=== PATIENT | female | born 1955 | race Caucasian/White ===

== ENCOUNTER 2022-10-15 14:03 | Emergency (ER) | payer MEDICARE, SELFPAY ==
[2022-10-15] VITALS (17 sets, daily range): BP systolic 127–180; BP diastolic 69–90; PULSE 59–78; RESP 12–27; TEMP 36.7; O2SAT 95–100; BMI 36.7
--- NOTE | 2022-10-15 14:17 | ECG_ITS ---
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
--- NOTE | 2022-10-15 14:17 | XR_ITS ---
The [address] [address] Patient Name: RUBI SOLARES MRN: [id number] date: 1955 Sex: F Assigned Patient Location: ER Current Patient Location: ER Accession/Order Number: [id number] Exam Date: 10/15/2022 14:40 Report Date: 10/15/2022 15:16 At the request of: VIOLET BASSETT Procedure: XR chest 1V EXAMINATION: XR chest 1V HISTORY: chest pain, shortness of breath COMPARISON: No relevant comparison available. TECHNIQUE: AP portable FINDINGS: LUNGS: No significant pulmonary parenchymal abnormalities. VASCULATURE: No increased pulmonary vasculature. PLEURA: No pneumothorax, effusion, or pleural thickening. CARDIAC: No cardiomegaly or cardiac silhouette abnormality. MEDIASTINUM: No visible mass or adenopathy. Left pacemaker BONES: Mild degenerative disc disease and spondylosis without visible acute abnormalities. OTHER: Negative. IMPRESSION: No acute cardiopulmonary process Electronically authenticated by: CHRISTINA DIETRICH Date: 10/15/2022 15:16
--- NOTE | 2022-10-15 14:24 | ED_ITS ---
HPI - Chest Pain General Chief Complaint: Chest Pain Stated Complaint: CHEST PAIN Time Seen by Provider: 10/15/22 14:16 Source: patient Mode of arrival: ambulance Limitations: no limitations Related Data Home Medications Medication Instructions Recorded Confirmed carvedilol 12.5 mg tablet 12.5 mg PO Q12H 10/15/22 10/15/22 ergocalciferol (vitamin D2) 1,250 50,000 unit PO .Tuesday10/15/22 10/15/22 mcg (50,000 unit) capsule losartan 100 mg tablet 100 mg PO QDAY 10/15/22 10/15/22 rivaroxaban 20 mg tablet (Xarelto) 20 mg PO Q24H 10/15/22 10/15/22 tramadol 50 mg tablet 50 mg PO Q12H PRN pain 10/15/22 10/15/22 vibegron 75 mg tablet (Gemtesa) 75 mg PO QDAY 10/15/22 10/15/22 Allergies Allergy/AdvReac Type Severity Reaction Status Date / Time acetaminophen [From Percocet] AdvReac Intermediate Verified 10/15/22 14:08 oxycodone [From Percocet] AdvReac Intermediate Verified 10/15/22 14:08 PFSH PFSH Social History Smoking status: Former smoker Exam Constitutional Vital Signs - 24 hr 10/15/22 14:05 10/15/22 14:09 10/15/22 14:10 Temperature 98.1 F Pulse Rate 74 71 Pulse Rate [Monitor] 78 Respiratory Rate 16 19 17 Blood Pressure Blood Pressure [Right Arm] 180/90 H Pulse Oximetry 98 98 98 Oxygen Delivery Method Room Air 10/15/22 14:20 10/15/22 14:30 10/15/22 14:33 Temperature Pulse Rate 72 70 73 Pulse Rate [Monitor] Respiratory Rate 13 27 H 14 Blood Pressure 172/81 H Blood Pressure [Right Arm] Pulse Oximetry 97 97 95 Oxygen Delivery Method 10/15/22 14:33 10/15/22 15:01 10/15/22 15:31 Temperature Pulse Rate 73 72 75 Pulse Rate [Monitor] Respiratory Rate 22 15 16 Blood Pressure 139/69 H 149/72 H Blood Pressure [Right Arm] Pulse Oximetry 97 96 Oxygen Delivery Method 10/15/22 15:54 10/15/22 16:01 10/15/22 16:23 Temperature Pulse Rate 73 59 L Pulse Rate [Monitor] Respiratory Rate 15 14 Blood Pressure 127/71 H 133/78 H 133/78 H Blood Pressure [Right Arm] Pulse Oximetry 98 96 Oxygen Delivery Method 10/15/22 16:01 10/15/22 16:31 Temperature Pulse Rate 74 66 Pulse Rate [Monitor] Respiratory Rate 14 16 Blood Pressure 133/78 H 147/87 H Blood Pressure [Right Arm] Pulse Oximetry 97 98 Oxygen Delivery Method Course Vital Signs Vital signs: Vital Signs Temperature 98.1 F 10/15/22 14:05 Pulse Rate 78 10/15/22 14:05 Respiratory Rate 16 10/15/22 14:05 Blood Pressure 180/90 H 10/15/22 14:05 Pulse Oximetry 98 10/15/22 14:05 Oxygen Delivery Method Room Air 10/15/22 14:05 Temperature 98.1 F 10/15/22 14:05 Pulse Rate 66 10/15/22 16:31 Respiratory Rate 16 10/15/22 16:31 Blood Pressure 147/87 H 10/15/22 16:31 Pulse Oximetry 98 10/15/22 16:31 Oxygen Delivery Method Room Air 10/15/22 14:05 MDM - Chest Pain MDM Narrative Medical decision making narrative: Patient was placed on hospital monitor and EKG obtained. Blood drawn and sent for evaluation.chest x-ray obtained. The patient was given aspirin, sublingual nitroglycerin, IV Zofran and IV morphine. Her pain subsequently returned and so she was given additional IV morphine. Workup is notable for an unremarkable chest x-ray, paced EKG, normal CBC, normal metabolic profile, negative troponin and negative d-dimer. BNP is elevated at 3750. the patient was given IV Lasix Like to admit this patient for further evaluation of her chest pain. I spoke with Dr Masters and he would prefer that the patient be sent to [facility] since we will not have in patient cardio coverage over the weekend. I spoke with Dr Albrecht - hospitalist at [facility] - and he accepted the patient's transfer to their facility for admission. Patient agreeable to transfer to their facility Lab Data Attestation: I reviewed the patient's lab results. Labs: Lab Results 10/15/22 Range/Units 14:05 WBC 6.1 (4.0-11.0) 10^3/uL RBC 4.48 (4.20-5.40) 10^6/uL Hgb 12.8 (12.0-16.0) g/dL Hct 40.5 (36.0-48.0) % MCV 90.4 (81.0-99.0) fL MCH 28.6 (26.7-34.0) pg MCHC 31.6 (29.9-35.2) g/dL RDW 14.0 (11.0-15.0) % Plt Count 208 (150-450) 10^3/uL MPV 10.6 (9.5-13.5) fL Neut % (Auto) 70.7 (43.0-75.0) % Lymph % (Auto) 20.5 (20.5-60.0) % Johnson % (Auto) 7.3 (1.7-12.0) % Eos % (Auto) 1.0 (0.9-7.0) % Baso % (Auto) 0.3 (0.2-2.0) % Neut # (Auto) 4.3 (1.4-6.5) 10^3/uL Lymph # (Auto) 1.2 (1.2-3.8) 10^3/uL Johnson # (Auto) 0.4 (0.3-0.8) 10^3/uL Eos # (Auto) 0.1 (0.0-0.7) 10^3/uL Baso # (Auto) 0.0 (0.0-0.1) 10^3/uL Abs Immat Gran (auto) 0.01 (0.00-0.03) 10^3/uL Imm/Tot Granulo (auto) 0.2 (0.0-0.5) % D-Dimer 0.28 (<=0.59) mg/L FEU Sodium 142 (136-145) mmol/L Potassium 4.1 (3.5-5.1) mmol/L Chloride 111 H (98-107) mmol/L Carbon Dioxide 28.3 (21.0-32.0) mmol/L Anion Gap 6.8 BUN 29.0 H (7.0-18.0) mg/dL Creatinine 0.91 (0.55-1.02) mg/dL Est GFR ( Amer) >60 (>=60) Est GFR (Non-Af Amer) >60 (>=60) BUN/Creatinine Ratio 31.9 Glucose 111 H (74-106) mg/dL Calcium 9.5 (8.5-10.1) mg/dL Troponin I High Sens 7.8 (4.0-51.3) pg/mL NT-Pro-B Natriuret Pep 3750.0 H* (<=900.0) pg/mL Imaging Data Chest x-ray: Radiologist's impression: Patient Name: RUBI SOLARES MRN: [facility]:[id number] date: 1955 Sex: F Assigned Patient Location: ER Current Patient Location: ER Accession/Order Number: [id number] Exam Date: 10/15/2022 14:40 Report Date: 10/15/2022 15:16 At the request of: VIOLET BASSETT Procedure: XR chest 1V EXAMINATION: XR chest 1V HISTORY: chest pain, shortness of breath COMPARISON: No relevant comparison available. TECHNIQUE: AP portable FINDINGS: LUNGS: No significant pulmonary parenchymal abnormalities. VASCULATURE: No increased pulmonary vasculature. PLEURA: No pneumothorax, effusion, or pleural thickening. CARDIAC: No cardiomegaly or cardiac silhouette abnormality. MEDIASTINUM: No visible mass or adenopathy. Left pacemaker BONES: Mild degenerative disc disease and spondylosis without visible acute abnormalities. OTHER: Negative. IMPRESSION: No acute cardiopulmonary process Electronically authenticated by: CHRISTINA DIETRICH Date: 10/15/2022 15:16 ECG Data Interpretation: EKG interpretation: Emergency Department physician interpretation. electronic pacing at 73bpm. Heart Score History: Moderatly Suspicious ECG: NS Repolarization Age: >65 years Risk Factors: >3 Risk Factors/ HX of CAD:2 Troponin: <Normal Limit Total Heart Score Recommendations & Risks:: 6 Discharge Plan Discharge Chief Complaint: Chest Pain Clinical Impression: Chest pain Patient Disposition: [facility] Time of Disposition Decision: 16:53 Discharge Location: [facility] Prescriptions / Home Meds: No Action carvedilol 12.5 mg tablet 12.5 mg PO Q12H ergocalciferol (vitamin D2) 1,250 mcg (50,000 unit) capsule 50,000 unit PO .TUESDAY losartan 100 mg tablet 100 mg PO QDAY Xarelto 20 mg tablet 20 mg PO Q24H tramadol 50 mg tablet 50 mg PO Q12H PRN (Reason: pain) Gemtesa 75 mg tablet 75 mg PO QDAY Stand Alone Forms: Portal Instructions Referrals: OREN KENDRICK [Primary Care Provider] - 1 week
[2022-10-15] MEDS: ONDANSETRON PF 4 MG/2 ML VIAL IV (14:27)
[2022-10-15] MEDS: NITROGLYCERIN 0.4 MG TAB.SUBL SL (14:27)
[2022-10-15] MEDS: MORPHINE SULFATE 4 MG/ML VIAL IM (14:27)
[2022-10-15] MEDS: ASPIRIN 81 MG TAB.CHEW 162 MG PO (14:27)
[2022-10-15 15:03] LABS: Basophils Percent Auto 0.3 % (0.2-2.0); Eosinophils Absolute Auto 0.1 10^3/uL (0.0-0.7); Hematocrit 40.5 % (36.0-48.0); Hemoglobin 12.8 g/dL (12.0-16.0); Immature Granulocytes Abs Auto 0.01 10^3/uL (0.00-0.03); Immature Granulocytes Pct Auto 0.2 % (0.0-0.5); Lymphocytes Absolute Auto 1.2 10^3/uL (1.2-3.8); Lymphocytes Percent Auto 20.5 % (20.5-60.0); Mean Corpuscular HGB Conc 31.6 g/dL (29.9-35.2); Mean Corpuscular Hemoglobin 28.6 pg (26.7-34.0); Mean Corpuscular Volume 90.4 fL (81.0-99.0); Mean Platelet Volume 10.6 fL (9.5-13.5); Monocytes Absolute Auto 0.4 10^3/uL (0.3-0.8); Monocytes Percent Auto 7.3 % (1.7-12.0); Neutrophils Absolute Auto 4.3 10^3/uL (1.4-6.5); Neutrophils Percent Auto 70.7 % (43.0-75.0); Platelet Count 208 10^3/uL (150-450); Red Blood Count 4.48 10^6/uL (4.20-5.40); White Blood Count 6.1 10^3/uL (4.0-11.0)
[2022-10-15 15:18] LABS: D Dimer 0.28 mg/L FEU (<=0.59)
[2022-10-15 15:24] LABS: Anion Gap 6.8; BUN Creatinine Ratio 31.9; Calcium 9.5 mg/dL (8.5-10.1); Carbon Dioxide 28.3 mmol/L (21.0-32.0); Chloride 111 mmol/L (98-107); Estimated GFR (African America >60 (>=60); Estimated GFR (Non-African Ame >60 (>=60); Glucose 111 mg/dL (74-106); Potassium 4.1 mmol/L (3.5-5.1); Sodium 142 mmol/L (136-145); Troponin I High Sensitivity 7.8 pg/mL (4.0-51.3)
[2022-10-15] MEDS: MORPHINE SULFATE 2 MG/ML SYRINGE IV (16:18)
[2022-10-15] MEDS: FUROSEMIDE 40 MG/4 ML VIAL IVP (16:23)
[2022-10-15 17:26] LABS: Troponin I High Sensitivity 7.9 pg/mL (4.0-51.3)
== END 2022-10-15 18:40 | disposition short-term general hospital (02) ==
PROVIDERS: Emergency Provider Emergency Medicine; PCP Internal Medicine
DX: R07.9 Chest pain, unspecified (principal); Z79.899 Other long term (current) drug therapy; Z79.01 Long term (current) use of anticoagulants; I25.10 Atherosclerotic heart disease of native coronary artery without angina pectoris; Z95.0 Presence of cardiac pacemaker; R79.89 Other specified abnormal findings of blood chemistry; R06.02 Shortness of breath
CPT/HCPCS: 36415; 71045; 80048; 83880; 84484; 85025; 85378; 93005; 96372; 96374; 96375; 99285

== ENCOUNTER 2023-01-04 11:53 | Outpatient (OUT) | payer MEDICARE, SELFPAY ==
[2023-01-04 13:28] LABS: Bilirubin Urine NEGATIVE (NEGATIVE); Blood Urine NEGATIVE (NEGATIVE); Clarity Urine SLIGHTLY CLOUDY (CLEAR); Color Urine LT. YELLOW (YELLOW); Glucose Urine UA NEGATIVE (NEGATIVE); Ketones Urine NEGATIVE (NEGATIVE); Leukocyte Esterase Urine MODERATE (NEGATIVE); Nitrite Urine NEGATIVE (NEGATIVE); Protein Urine 30 mg/dL (NEG/TRACE); Specific Gravity Urine 1.025 (1.005-1.025); Urobilinogen Urine 0.2 EU/dL (0.2-1.0)
[2023-01-04 13:29] LABS: Bacteria Urine TRACE #/HPF (NONE SEEN); Cast Seen? NONE SEEN #/LPF (NONE SEEN); Crystals Seen? None Seen #/HPF (None Seen); Mucus Urine NONE SEEN (NONE SEEN); RBC Urine NONE SEEN #/HPF (0-2); Squamous Epithelial Cell Urine RARE #/LPF (NONE/RARE); Urine Culture Indicated ALREADY ORDERED
== END 2023-01-04 11:54 | disposition home or self-care (01) ==
LOC: LAB 11:55
PROVIDERS: PCP Internal Medicine
DX: R30.0 Dysuria (principal)
CPT/HCPCS: 81001; 87086; 87150; 87186

== ENCOUNTER 2023-01-28 12:25 | Emergency (ER) | payer OTHER, MEDICARE, SELFPAY ==
[2023-01-28 12:30] VITALS: BP 153/82; PULSE 76; RESP 18; TEMP 36.8; O2SAT 97; BMI 30.9
--- NOTE | 2023-01-28 12:54 | XR_ITS ---
The [address] [address] Patient Name: RUBI SOLARES MRN: [id number] date: 1955 Sex: F Assigned Patient Location: ED.MAIN Current Patient Location: Accession/Order Number: [id number] Exam Date: 01/28/2023 13:40 Report Date: 01/28/2023 15:50 At the request of: ZAIDA SALGUERO Procedure: XR finger RT min 2V EXAM: XR finger RT min 2V, 02/05/2023. TECHNIQUE: Frontal, oblique and lateral views were obtained. HISTORY: Laceration 5th digit. COMPARISON: None. FINDINGS/IMPRESSION: 1. No acute fracture or dislocation. 2. There are 2 subcentimeter radiopaque foreign bodies within the volar soft tissues near the middle phalanx seen best on the lateral view. These measure between 1 and 2 mm. 3. 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 Electronically authenticated by: [employer] Date: 01/28/2023 15:50 XR/XR finger RT min 2V IMPRESSION: 1. No acute fracture or dislocation. 2. There are 2 subcentimeter radiopaque foreign body within the volar soft tissues near the middle phalanx seen best on the lateral view. These measure between 1 and 2 mm. 3. Multifocal arthritis involving articulations of the hand and wrist, seen for example at the second and third MCP and less so involving several interphalangeal joints. Electronically authenticated by: [employer] Date: 01/28/2023 14:35
[2023-01-28] MEDS: LIDOCAINE HCL 1% PF 20 MG/2 ML VIAL INJ (13:11)
--- NOTE | 2023-01-28 13:14 | ED_ITS ---
Documented by User: CASEY Guzman 01/28/23 13:49 HPI - Wound/Laceration General Chief Complaint: Wound/Laceration Stated Complaint: LOWER EXTREMITY INJURY R HAND Time Seen by Provider: 01/28/23 12:50 Source: patient Mode of arrival: walk-in Limitations: no limitations History of Present Illness HPI narrative: Pt is a 67-year-old female right-hand dominant who presents to the Emergency Room for evaluation of laceration to the tip of her 5th digit. Patient was using a mandolin slicing at work when she cut the tip of her finger. Patient has tetanus up-to-date, she is on xarelto and finger has been bleeding without direct pressure since injury. nail appears grossly intact. Patient had similar injury on her other hand remotely. She appears in no distress. Complains of [id number] pain to the tip of her finger.. Place: Reports work Patient tetanus UTD: Yes Context: Reports accidental Associated symptoms: Reports none Related Data Home Medications Medication Instructions Recorded Confirmed carvedilol 12.5 mg tablet 12.5 mg PO Q12H 10/15/22 10/15/22 ergocalciferol (vitamin D2) 1,250 50,000 unit PO .Tuesday10/15/22 10/15/22 mcg (50,000 unit) capsule losartan 100 mg tablet 100 mg PO QDAY 10/15/22 10/15/22 rivaroxaban 20 mg tablet (Xarelto) 20 mg PO Q24H 10/15/22 10/15/22 tramadol 50 mg tablet 50 mg PO Q12H PRN pain 10/15/22 10/15/22 vibegron 75 mg tablet (Gemtesa) 75 mg PO QDAY 10/15/22 10/15/22 Allergies Allergy/AdvReac Type Severity Reaction Status Date / Time acetaminophen [From Percocet] AdvReac Intermediate Verified 10/15/22 14:08 oxycodone [From Percocet] AdvReac Intermediate Verified 10/15/22 14:08 Review of Systems ROS Constitutional Denies: fever or change in weight Ears, nose, mouth, and throat Denies: throat pain or neck pain Respiratory Denies: shortness of breath or cough Integumentary/Breast Denies: rash or redness PFSH PFSH Social History Smoking status: Former smoker Exam Narrative Exam Narrative: Nurse's notes and vital signs reviewed. Patient is not hypoxic. General: The patient appears well and in no apparent distress. Patient is resting comfortably on cart. Skin: Warm, dry, no pallor noted.laceration tip of 5th digit vertical with slight elliptical curve just under the nail ulnar aspect.no evidence of nail avulsion or trauma. Subcutaneous tissues exposed, or visible bone. Head: Normocephalic, atraumatic Eye: Normal conjunctiva Respiratory: Patient is in no distress Musculoskeletal: The right hand and wrist shows no obvious deformity. localize laceration tip of 5th digit There was no swelling noted. The patient had range of motion of the 5th digit and hand despite pain, mild arthritic changes noted The patient had tenderness noted just to the tip of her little finger. The patient had no tenderness in the anatomical snuff box. The patient had no pain with axial loading of the thumb. Pulses are intact at brachial and radial 2+. There was no deficit at the elbow or shoulder. The patient has normal capillary refill to all distal digits. The patient has no evidence of cyanosis or mottling. The patient is able to flex and extend all digits without difficulty. Neurological: A&O x4, normal sensory, normal motor Psychiatric: Cooperative Constitutional Vital Signs, click to edit/add: Last Vital Signs Temp 98.2 F 01/28/23 12:30 Pulse 76 01/28/23 12:30 Resp 18 01/28/23 12:30 BP 153/82 H 01/28/23 12:30 Pulse Ox 97 01/28/23 12:30 Course Vital Signs Vital signs: Vital Signs Temperature 98.2 F 01/28/23 12:30 Pulse Rate 76 01/28/23 12:30 Respiratory Rate 18 01/28/23 12:30 Blood Pressure 153/82 H 01/28/23 12:30 Pulse Oximetry 97 01/28/23 12:30 Temperature 98.2 F 01/28/23 12:30 Pulse Rate 76 01/28/23 12:30 Respiratory Rate 18 01/28/23 12:30 Blood Pressure 153/82 H 01/28/23 12:30 Pulse Oximetry 97 01/28/23 12:30 MDM - Wound/Laceration MDM Narrative Medical decision making narrative: patient's tetanus up-to-date, discussed wound repair, she'll need suture removal in approximately ten days. She'll be given the follow-up at occupational medicine given her injury occurred at work while slicing. Discussed keeping her wound clean and dry, elevating with ice. X-ray performed today to rule out bony involvement. Dressing applied. The patient is to followup with occupational medicine clinic in ten days.. or to return to the emergency department should any of the signs or symptoms worsen or new symptoms develop. Patient had questions answered. The patient agrees with the following Diagnosis and Treatment plan and the patient will be discharged home. Imaging Data RIGHT 5TH DIGIT XRAY: My impression: three view right 5th digit, no acute fracture. Radiologist's impression: pending Discharge Plan Discharge Chief Complaint: Wound/Laceration Clinical Impression: Laceration Patient Disposition: Home, Self-Care Condition: Good Mode of Transportation: Private Vehicle Prescriptions / Home Meds: No Action carvedilol 12.5 mg tablet 12.5 mg PO Q12H ergocalciferol (vitamin D2) 1,250 mcg (50,000 unit) capsule 50,000 unit PO .TUESDAY losartan 100 mg tablet 100 mg PO QDAY Xarelto 20 mg tablet 20 mg PO Q24H tramadol 50 mg tablet 50 mg PO Q12H PRN (Reason: pain) Gemtesa 75 mg tablet 75 mg PO QDAY Instructions: Laceration (ED) Additional Instructions: please call occupational medicine clinic for follow-up suture removal in 8-10 days Stand Alone Forms: Portal Instructions Referrals: [facility] [Outside] - 1 week OREN KENDRICK [Primary Care Provider] - As soon as possible Discharge Date/Time: 01/28/23 13:57 Procedures ED Laceration Laceration Laceration 1: Additional comments: laceration right 5th digit Laceration repair: Done under sterile conditions. The use of Betadine was used to prep and clean the area. Local injection with lidocaine 1% was used, approximately 1.5 cc. The wound was irrigated copiously with normal saline. The wound was explored there was no evidence of foreign material. The laceration was approximated with 6-o prolene. 4 simple interrupted sutures were placed. Patient tolerated the procedure well. The patient was neurovascularly intact post. the patient had bacitracin applied to the laceration and a dry sterile dressing was place. The patient will need to follow-up in the next 10 days for removal. Documented by User: Honorio Mcfarlane MD 01/28/23 18:33 HPI - Wound/Laceration General Chief Complaint: Wound/Laceration Stated Complaint: LOWER EXTREMITY INJURY R HAND Time Seen by Provider: 01/28/23 12:50 Related Data Home Medications Medication Instructions Recorded Confirmed carvedilol 12.5 mg tablet 12.5 mg PO Q12H 10/15/22 10/15/22 ergocalciferol (vitamin D2) 1,250 50,000 unit PO .Tuesday10/15/22 10/15/22 mcg (50,000 unit) capsule losartan 100 mg tablet 100 mg PO QDAY 10/15/22 10/15/22 rivaroxaban 20 mg tablet (Xarelto) 20 mg PO Q24H 10/15/22 10/15/22 tramadol 50 mg tablet 50 mg PO Q12H PRN pain 10/15/22 10/15/22 vibegron 75 mg tablet (Gemtesa) 75 mg PO QDAY 10/15/22 10/15/22 Allergies Allergy/AdvReac Type Severity Reaction Status Date / Time acetaminophen [From Percocet] AdvReac Intermediate Verified 10/15/22 14:08 oxycodone [From Percocet] AdvReac Intermediate Verified 10/15/22 14:08 PFSH PFSH Social History Smoking status: Former smoker Exam Constitutional Vital Signs, click to edit/add: Last Vital Signs Temp 98.2 F 01/28/23 12:30 Pulse 76 01/28/23 12:30 Resp 18 01/28/23 12:30 BP 153/82 H 01/28/23 12:30 Pulse Ox 97 01/28/23 12:30 Course Vital Signs Vital signs: Vital Signs Temperature 98.2 F 01/28/23 12:30 Pulse Rate 76 01/28/23 12:30 Respiratory Rate 18 01/28/23 12:30 Blood Pressure 153/82 H 01/28/23 12:30 Pulse Oximetry 97 01/28/23 12:30 Temperature 98.2 F 01/28/23 12:30 Pulse Rate 76 01/28/23 12:30 Respiratory Rate 18 01/28/23 12:30 Blood Pressure 153/82 H 01/28/23 12:30 Pulse Oximetry 97 01/28/23 12:30 MDM - Wound/Laceration MDM Narrative Medical decision making narrative: patient's tetanus up-to-date, discussed wound repair, she'll need suture removal in approximately ten days. She'll be given the follow-up at occupational medicine given her injury occurred at work while slicing. Discussed keeping her wound clean and dry, elevating with ice. X-ray performed today to rule out bony involvement. Dressing applied. The patient is to followup with occupational medicine clinic in ten days.. or to return to the emergency department should any of the signs or symptoms worsen or new symptoms develop. Patient had questions answered. The patient agrees with the following Diagnosis and Treatment plan and the patient will be discharged home. I, Dr Mcfarlane, have reviewed the above progress note and course of action in the ER; agree with the above. I have personally seen and evaluated this patient, gone over history and physical, and discussed disposition and treatment plan with the patient. Discharge Plan Discharge Chief Complaint: Wound/Laceration Clinical Impression: Laceration Patient Disposition: Home, Self-Care Condition: Good Mode of Transportation: Private Vehicle Prescriptions / Home Meds: No Action carvedilol 12.5 mg tablet 12.5 mg PO Q12H ergocalciferol (vitamin D2) 1,250 mcg (50,000 unit) capsule 50,000 unit PO .TUESDAY losartan 100 mg tablet 100 mg PO QDAY Xarelto 20 mg tablet 20 mg PO Q24H tramadol 50 mg tablet 50 mg PO Q12H PRN (Reason: pain) Gemtesa 75 mg tablet 75 mg PO QDAY Instructions: Laceration (ED) Additional Instructions: please call occupational medicine clinic for follow-up suture removal in 8-10 days Stand Alone Forms: Portal Instructions Referrals: [facility] Occup[facility] [Outside] - 1 week OREN KENDRICK [Primary Care Provider] - As soon as possible Discharge Date/Time: 01/28/23 13:57
== END 2023-01-28 13:57 | disposition home or self-care (01) ==
PROVIDERS: Emergency Provider Emergency Medicine; PCP Internal Medicine
DX: S61.216A Laceration without foreign body of right little finger without damage to nail, initial encounter (principal); W26.8XXA Contact with other sharp object(s), not elsewhere classified, initial encounter; Z79.01 Long term (current) use of anticoagulants; Z79.899 Other long term (current) drug therapy; Z87.891 Personal history of nicotine dependence
CPT/HCPCS: 12001; 73140; 99283

== ENCOUNTER 2023-06-30 06:14 | Outpatient (OUT) | payer MEDICARE, SELFPAY ==
--- OUTSIDE RECORDS SUMMARY | 2023-06-30 06:19 | XMS_ITS | CCD ---
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 Onset: 12-26-2016 Resolved: 09-28-2022 09-28-2022 Chronic Osteoporosis (1 source) Osteoporosis; Translations: [Age-related osteoporosis without current pathological fracture] Onset: 06-29-2018 09-28-2022 Chronic Other aftercare (4 sources) intermediate designer (current) use of anticoagulants; Translations: [Long-term (current) use of anticoagulants] Onset: 10-15-2022 10-17-2022 Episodic Other circulatory disease (6 sources) H/O: hypertension; Translations: [Personal history of other diseases of circulatory system] Episodic Other connective tissue disease (6 sources) H/O: arthritis; Translations: [Personal history of arthritis] Episodic Other connective tissue disease (5 sources) Fibromyalgia; Translations: [Fibromyalgia] Onset: 11-05-2016 10-16-2022 Episodic Other diseases of bladder and urethra (4 sources) Overactive bladder; Translations: [Overactive bladder] Onset: 10-17-2019 10-16-2022 Chronic Other ear and sense organ disorders (7 sources) Sensorineural hearing loss, bilateral; Translations: [Sensorineural hearing loss, bilateral] Onset: 02-01-2016 09-28-2022 Chronic Other hematologic conditions (6 sources) History of anemia; Translations: [Personal history of diseases of blood and blood-forming organs] Episodic Other hereditary and degenerative nervous system conditions (1 source) Restless legs; Translations: [Restless legs syndrome] Onset: 03-22-2017 09-28-2022 Chronic Other lower respiratory disease (6 sources) H/O: bronchitis; Translations: [Personal history of other diseases of respiratory system] Episodic Other lower respiratory disease (6 sources) H/O: respiratory disease; Translations: [Personal history of unspecified disease of respiratory system] Episodic Other lower respiratory disease (6 sources) Snoring; Translations: [Other respiratory abnormalities] Episodic Other nervous system disorders (1 source) Chronic pain; Translations: [Other chronic pain] Onset: 12-16-2016 09-28-2022 Chronic Other nutritional; endocrine; and metabolic disorders (3 sources) Body mass index 30+ - obesity; Translations: [Body Mass Index 34.0-34.9, adult] Chronic Other nutritional; endocrine; and metabolic disorders (3 sources) Obesity; Translations: [Obesity, unspecified] Chronic Other nutritional; endocrine; and metabolic disorders (3 sources) Severe obesity; Translations: [Morbid obesity] Chronic Other nutritional; endocrine; and metabolic disorders (3 sources) Hypomagnesemia; Translations: [Hypomagnesemia] 10-16-2022 Chronic Other nutritional; endocrine; and metabolic disorders (4 sources) Hypomagnesemia; Translations: [Disorders of magnesium metabolism] Onset: 10-15-2022 10-17-2022 Chronic Other nutritional; endocrine; and metabolic disorders (1 source) Obesity caused by energy imbalance; Translations: [Morbid (severe) obesity due to excess calories] Onset: 09-28-2022 09-28-2022 Chronic Other nutritional; endocrine; and metabolic disorders (1 source) Obese class II; Translations: [Obesity, unspecified] Onset: 04-22-2021 11-04-2022 Chronic Dolly-; endo-; and myocarditis; cardiomyopathy (except that caused by tuberculosis or sexually transmitted disease) (1 source) Cardiomyopathy; Translations: [Other cardiomyopathies] Onset: 07-18-2016 09-28-2022 Chronic Peripheral and visceral atherosclerosis (1 source) Aortic arch atherosclerosis; Translations: [Atherosclerosis of aorta] Onset: 09-28-2022 09-28-2022 Chronic Residual codes; unclassified (6 sources) Sleep apnea; Translations: [Unspecified sleep apnea] Chronic Residual codes; unclassified (1 source) Obstructive sleep apnea syndrome; Translations: [Obstructive sleep apnea (adult) (pediatric)] Onset: 08-06-2017 09-28-2022 Chronic Residual codes; unclassified (6 sources) History of lung lobectomy; Translations: [Other postprocedural status] Episodic Residual codes; unclassified (6 sources) History of chest pain; Translations: [Personal history of other specified diseases] Episodic Syncope (1 source) Syncope and collapse Onset: 05-08-2018 Episodic Unclassified (3 sources) Encounter for adjust and mgmt oth prt cardiac pacemaker; Translations: [Encounter for adjust and mgmt oth prt cardiac pacemaker] Onset: 05-08-2018 Unclassified (2 sources) Asymptomatic microscopic hematuria 04-22-2021 Unclassified (3 sources) LOW BACK PAIN, UNSPECIFIED; Translations: [LOW BACK PAIN, UNSPECIFIED] Onset: 05-14-2022 Unclassified (1 source) Diarrhea, unspecified; Translations: [Diarrhea, unspecified] Onset: 11-18-2022 Unclassified (1 source) Encounter for checking and testing of cardiac pacemaker pulse generator [battery]; Translations: [Encounter for checking and testing of cardiac pacemaker pulse generator [battery]] Onset: 03-09-2022 Urinary tract infections (7 sources) Bacterial urinary infection; Translations: [Urinary tract infection, site not specified] Onset: 10-15-2022 10-16-2022 Episodic Past or Other Problems Problem Classification Problem Date Documented Da te Episodic/Chronic Administrative/social admission (1 source) Patient encounter status; Translations: [Other specified counseling] Onset: 3 Resolved: 3 03-14-2023 Episodic Anxiety disorders (1 source) Generalized anxiety disorder; Translations: [Generalized anxiety disorder] Onset: 3 Resolved: 3 10-26-2022 Chronic Deficiency and other anemia (1 source) Iron deficiency anemia; Translations: [Iron deficiency anemia, unspecified] Onset: 3 09-28-2022 Episodic Deficiency and other anemia (1 source) Nutritional anemia; Translations: [Other vitamin B12 deficiency anemias] Onset: 5 09-28-2022 Episodic E Codes: Cut/pierceb (1 source) Contact with other sharp object(s), not elsewhere classified, initial encounter; Translations: [[facility] [place] SHRP OB NOT ELSW CLASS INI] Onset: 2 Episodic Genitourinary symptoms and ill-defined conditions (16 sources) H/O: urinary anomaly; Translations: [Personal history of other specified urinary system disorders] Onset: 2 Resolved: 3 Episodic Open wounds of extremities (4 sources) Laceration without foreign body of left ring finger without damage to nail, initial encounter; Translations: [LAC NO FB LT RF NO DMG NAIL INITIAL] Onset: 2 Episodic Other aftercare (10 sources) Long-term current use of anticoagulant; Translations: [Long-term (current) use of anticoagulants] Onset: 7 10-16-2022 Episodic Other connective tissue disease (1 source) Rotator cuff tear arthropathy; Translations: [Unspecified rotator cuff tear or rupture of unspecified shoulder, not specified as traumatic] Onset: 3 Resolved: 3 09-28-2022 Episodic Other ear and sense organ disorders (6 sources) Mixed conductive and sensorineural hearing loss, bilateral; Translations: [Mixed hearing loss, bilateral] Resolved: 2 Chronic Other ear and sense organ disorders (1 source) Bilateral tinnitus; Translations: [Tinnitus, bilateral] Onset: 3 09-28-2022 Episodic Phlebitis; thrombophlebitis and thromboembolism (8 sources) Phlebitis and thrombophlebitis of superficial vessels of left lower extremity; Translations: [Phlebitis and thrombophlebitis of superficial vessels of right lower extremity] Onset: 2 Episodic Screening and history of mental health and substance abuse codes (8 sources) Ex-smoker; Translations: [Personal history of tobacco use] Onset: 3 Resolved: 3 04-22-2021 Episodic Sprains and strains (1 source) Rupture of patellar tendon; Translations: [Strain of other muscle(s) and tendon(s) at lower leg level, left leg, initial encounter] Onset: 3 Resolved: 3 09-28-2022 Episodic Unclassified (1 source) LOW BACK PAIN, UNSPECIFIED; Translations: [LOW BACK PAIN, UNSPECIFIED] Onset: 3 Varicose veins of lower extremity (5 sources) Varicose veins of bilateral lower extremities with pain; Translations: [Varicose veins of lower extremity] Onset: 2 Episodic Results Test Name Value Interpretation Reference Range Facility BI MAMMOGRAM SCREENING TOMOS YNTHESIS BILATERALon 06-13-2023 BI MAMMOGRAM SCREENING TOMOSYNTHESIS BILATERAL This is a summary report. The complete report is available in the patient's medical record. If you cannot access the medical record, please contact the sending organization for a detailed fax or copy. EXAMINATION: BI MAMMOGRAM SCREENING TOMOSYNTHESIS BILATERAL CLINICAL HISTORY: yearly mammogram COMPARISON: [facility] from 2021, 2020. RESULT: 3-D tomosynthesis imaging of the bilateral breasts was performed. Density: Scattered fibroglandular density [2] There are no suspicious masses or asymmetries, areas of architectural distortion or suspicious areas of microcalcifications. IMPRESSION: BIRADS 1 - Negative Recommended follow-up: Routine Screening Mamm Board Certified Radiologists. Accredited by the ACR and FDA. MAMMOGRAPHY IS VERY IMPORTANT TO YOUR HEALTH. THE [place] [employer] GUIDELINES RECOMMEND THAT WOMEN 40 YEARS OF AGE AND OLDER SHOULD HAVE A MAMMOGRAM EVERY YEAR. A REMINDER LETTER WILL BE SENT AT THE APPROPRIATE TIME. THIS FACILITY UTILIZES A REMINDER SYSTEM TO ENSURE ALL PATIENTS RECEIVE REMINDER NOTIFICATIONS AT THE APPROPRIATE TIME BASED ON THE RECOMMENDATIONS OF THIS EXAM. THIS INCLUDES REMINDERS FOR ROUTINE SCREENING MAMMOGRAMS, DIAGNOSTIC MAMMOGRAMS IN WHICH THE PATIENT IS ASKED TO RETURN FOR ADDITIONAL VIEWS, OR OTHER BREAST IMAGING INTERVENTIONS WHEN APPROPRIATE. THE PATIENT WILL BE PLACED IN THE APPROPRIATE REMINDER SYSTEM INCLUDING A REMINDER AT THE APPROPRIATE TIME FOR ANY PENDING ADDITIONAL VIEWS. ELECTRONICALLY SIGNED BY: Douglas Bernabe MD Normal Not Available Office Visit (Cardiology)on 12-22-2022 Follow-up visit Diagnoses/Problems Assessed Paroxysmal atrial fibrillation (427.31) (I48.0) intermediate designer current use of anticoagulant therapy (V58.61) (Z79.01) Sinus node dysfunction (427.81) (I49.5) Cardiac pacemaker in situ (V45.01) (Z95.0) Essential hypertension (401.9) (I10) Sleep apnea (780.57) (G47.30) Class 2 obesity with body mass index (BMI) of 35.0 to 35.9 in adult (278.00,V85.35) (E66.9,Z68.35) Former smoker (V15.82) (Z87.891) Orders Class 2 obesity with body mass index (BMI) of 35.0 to 35.9 in adult Healthy Weight Tips; Status:Complete - Retrospective Authorization; Done: [id number] Some eating tips that can help you lose weight.; Status:Complete - Retrospective Authorization; Done: [id number] Essential hypertension Renew: Losartan Potassium 100 MG Oral Tablet; TAKE 1 TABLET BY MOUTH EVERY DAY Essential hypertension, Paroxysmal atrial fibrillation Renew: Carvedilol 12.5 MG Oral Tablet; TAKE 1 TABLET BY MOUTH TWICE A DAY WITH FOOD FOR 90 DAYS *START AFTER 6.25MG RX IF FINISHED* SocHx: Former smoker Tobacco Use Screening; Status:Complete; Done: [id number] Patient Instructions Please bring all medicines, vitamins, and herbal supplements with you when you come to the office. Prescriptions will not be filled unless you are compliant with your follow up appointments or have a follow up appointment scheduled as per instruction of your physician. Refills should be requested at the time of your visit. Follow up in 9 months [facility] Patient advised to call pacemaker clinic for apt. The provider reviewed the following test(s) and result(s) with the patient: echocardiogram Chief Complaint RUBI SOLARES is being seen for a 9 month follow-up of. Patient is in the office for follow-up for the problems noted below. In October she was in the hospital with atypical chest pain was seen by Dr. Mckeon her work-up was negative and there has been no recurrent symptoms since. Her symptoms may suggest esophageal spasm with an actual ischemic heart disease. We spent more than half of our conversation today discussing her 's case who is a patient of mine with potential surgery for aortic dissection at the [facility] in [place]. Her examination was unremarkable except for class II obesity. ASSESSMENT AND PLAN: 1. History of paroxysmal atrial fibrillation, asymptomatic. Currently anticoagulated with Xarelto. This will continue. The load of atrial fibrillation is currently very low. 2. Sinus node dysfunction with a pacemaker in place pacemaker evaluations have been reviewed. 3. Cardiac catheterization in 2011 in 2016 revealed normal coronary arteries 4. High-risk medication with anticoagulation without any bleeds 5. Hypertension, currently under control on losartan. 6. Class II obesity, encouraged the patient cut back calorie intake and exercise on more regular basis. 7. Recent admission in October 2022 to the hospital for chest pain with negative work-up appears to be noncardiac in origin. No need for further cardiac testing based on the available information we have at this time. Davin Hobbs MD, [facility] Surgical History Problems History of Appendectomy History of Cardiac event recorder insertion Patient activated cardiac event recorder implementation History of Colonoscopy History of Hemorrhoidectomy History of Hip replacement History of Hysterectomy History of Knee replacement History of Lung surgery History of Stomach surgery Gastric surgery for morbid obesity gastric stapling History of Tonsillectomy Past Medical History Problems History of anemia (V12.3) (Z86.2) History of arthritis (V13.4) (Z87.39) History of bladder problems (V13.09) (Z87.448) History of bronchitis (V12.69) (Z87.09) History of chest pain (V13.89) (Z87.898) History of hypertension (V12.59) (Z86.79) History of lung disease (V12.60) (Z87.09) History of Mixed hearing loss, bilateral (389.22) (H90.6) Resolved Date: 02 Jul 2021 History of Snoring (786.09) (R06.83) Current Meds Medication NameInstruction Calcium 600 MG TABSTAKE 2 TABLET Daily Carvedilol 12.5 MG Oral TabletTAKE 1 TABLET BY MOUTH TWICE A DAY WITH FOOD FOR 90 DAYS *START AFTER 6.25MG RX IF FINISHED* Gemtesa 75 MG Oral TabletTAKE 1 TABLET 1 TIME A DAY Losartan Potassium 100 MG Oral TabletTAKE 1 TABLET BY MOUTH EVERY DAY Lyrica 150 MG Oral CapsuleTAKE 1 CAPSULE TWICE DAILY. Omeprazole 40 MG Oral Capsule Delayed ReleaseTAKE 1 CAPSULE Daily traMADol HCl - 50 MG Oral TabletTAKE 1-2 TABLET EVERY 12 HOURS NEEDED. Vitamin B-12 1000 MCG Sublingual Tablet SublingualPLACE 1 TABLET Daily Vitamin D (Ergocalciferol) 1.25 MG (28731 UT) Oral CapsuleTAKE 1 CAPSULE WEEKLY. Vitamin D3 125 MCG (5000 UT) Oral CapsuleTAKE 1 CAPSULE Daily Xarelto 20 MG Oral TabletTAKE 1 TABLET BY MOUTH EVERY DAY Zoloft 50 MG Oral TabletTAKE 1 TABLET DAILY. Allergies Medication Percocet TABS Recorded By: Ghazal Rivero; 11/13/2015 10:46:15 AM NonMedication No Kno (more content not included)... Normal [employer] Tobacco Screening.on 023 Adult depression screening assessment No [employer] 250 DO Work Phone: Fall risk assessment a) No falls within the last year [facility] [employer] 250 DO Work Phone: Tobacco use status [facility] b) No [facility] 250 DO Work Phone: US gall bladderon 11-18-2022 US gall bladder [facility] [address] [place] [address] [place] [id number] Ultrasound Report Signed Patient: Rubi Solares MR#: [id number] 89 : 1955 Acct:[id number] Age/Sex: 67 / F ADM Date: 11/18/22 Loc: Room: Type: [facility] Attending Dr: Juvencio Conroy [employer] Ordering Provider: Juvencio Conroy APRN Date of Service: 11/18/22 US/US gall bladder: Diarrhea Copies to: Juvencio Conroy APRN LIMITED ABDOMINAL ULTRASOUND: CLINICAL HISTORY: Diarrhea, epigastric pain/pressure. COMPARISON: CT abdomen and pelvis 10/28/2022 TECHNIQUE: Grayscale and color Doppler images of the right upper quadrant organs were obtained. FINDINGS: Pancreas: Not visualized Liver: No focal mass or intrahepatic ductal dilatation. Hepatopedal flow seen within the portal vein. Gallbladder: Unremarkable CBD: 2.3 mm US/US gall bladder IMPRESSION: NO ACUTE PROCESS. . Impression dictated by: Trent Berry Jr., D.O.11/18/2022 1:13 PM Dictation Location: [place] [address] Tech: Elvira Ryan Transcribed By: EVER 11/18/221312 Dictated By: Trent Berry Jr, DO 11/18/221312 Signed By: 11/18/22 131 Normal [facility] Alanine aminotransferase [En zymatic activity/volume] in Serum or PlasmaOrdered By: Latosha Ocampo on 10-28-2022 ALT [Catalytic activity/Vol] 10 U/L Normal [facility] Comment on above: Performed By: #### C MP, CBC ####[facility] [id number] [address] Albumin [Mass/volume] in Ser um or Plasma by Bromocresol green (BCG) dye binding methoOrdered By: Latosha Ocampo on 10-28-2022 Albumin BCG dye [Mass/Vol] 4.0 g/dL 3.5-5.7 [facility] Alkaline phosphatase [Enzyma tic activity/volume] in Serum or PlasmaOrdered By: Latosha Ocampo on 10-28-2022 ALP [Catalytic activity/Vol] 59 U/L Normal 34-104 [facility] Comment on above: Performed By: #### C MP, CBC ####[facility] [id number] [place] [address] Aspartate aminotransferase [ Enzymatic activity/volume] in Serum or PlasmaOrdered By: Latosha Ocampo on 10-28-2022 AST [Catalytic activity/Vol] 13 U/L Normal 13-39 [facility] Comment on above: Performed By: #### C MP, CBC ####[facility] Automated basophil %Ordered By: Latosha Ocampo on 10-28-2022 Basophils/100 WBC (Bld) 0.4 % Normal . [facility] Comment on above: Performed By: #### C MP, CBC #### [facility] [address] Automated basophil countOrde red By: Latosha Ocampo on 10-28-2022 Basophils (Bld) [#/Vol] 0.0 10*3/uL Normal 0.0-0.2 [facility] Comment on above: Result Comment: PERF ORMED BY: [place] [address] PATHOLOGIST SEISMOGRAPH OBSERVER RAFAEL TAVERAS M.D. Performed By: #### C MP, CBC #### [facility] [address] Automated blood monocyte cou ntOrdered By: Latosha Ocampo on 10-28-2022 Monocytes (Bld) [#/Vol] 0.4 10*3/uL Normal 0.0-0.8 [facility] Comment on above: Performed By: #### C MP, CBC #### [facility] [address] Automated eosinophil %Ordere d By: Latosha Ocampo on 10-28-2022 Eosinophils/100 WBC (Bld) 0.6 % Normal . [facility] Comment on above: Performed By: #### C MP, CBC #### [facility] [address] Automated eosinophil countOr dered By: Latosha Ocampo on 10-28-2022 Eosinophils (Bld) [#/Vol] 0.0 10*3/uL Normal 0.0-0.45 [facility] Comment on above: Performed By: #### C MP, CBC #### [address] Automated erythrocytes count in urine sediment (number/area)Ordered By: Latosha Ocampo on 10-28-2022 RBC Auto (Urine sed) [#/Area] 3-4 [HPF] 0-4 [facility] Automated leukocytes count i n urine sediment (number/area)Ordered By: Latosha Ocampo on 10-28-2022 WBC Auto (Urine sed) [#/Area] 3-4 [HPF] 0-4 [facility] Automated monocyte %Ordered By: Latosha Ocampo on 10-28-2022 Monocytes/100 WBC (Bld) 6.1 % Normal . [facility] Comment on above: Performed By: #### C MP, CBC #### [address] Automated neutrophil %Ordere d By: Latosha Ocampo on 10-28-2022 Neutrophils/100 WBC (Bld) 74.0 % Normal . [facility] Comment on above: Performed By: #### C MP, CBC #### [address] Automated urine hyaline cast s count (number/volume)Ordered By: Latosha Ocampo on 10-28-2022 Hyaline casts Auto (U) [#/Vol] 5-9 [LPF] 0-1 [facility] Bilirubin Test strip Ql (U)O rdered By: Latosha Ocampo on 10-28-2022 Bilirubin Ql (U) Negative Negative [facility] Bilirubin.total [Mass/volume ] in Serum or PlasmaOrdered By: Latosha Ocampo on 10-28-2022 Bilirubin [Mass/Vol] 0.4 mg/dL Normal 0.3-1.0 [facility] Comment on above: Performed By: #### C MP, CBC ####[facility] [id number] abdomen pelvis wo conon 0 10-28-2022 CT abdomen pelvis wo con [facility] [address] [place] [address] [id number] [address] Scan Report Signed Patient: Rubi Solares MR#: [id number] [birth year] : 1955 Acct:[id number] Age/Sex: 67 / F ADM Date: 10/28/22 Loc: ER Room: Type: [facility] ER Attending Dr: Copies to: Latosha Ocampo MD Ordering Provider: Latosha Ocampo MD Date of Service: 10/28/22 CT/CT abdomen pelvis wo con: abdominal pain CT ABDOMEN AND PELVIS WITHOUT CONTRAST COMPARISON: 05/24/2008 CLINICAL DATA: Difficulty eating and drinking, nausea, low pelvic pain and cramping and decreased urination Spiral images were obtained through the abdomen and pelvis without contrast. This CT exam was performed using one or more following dose reduction techniques: Automated exposure control, adjustment of the mA and/or kV according to patient size, or use of iterative reconstruction technique. Limited cuts through the lung bases show mild atelectasis or scarring. Assessment of the intra-abdominal organs is slightly limited by the absence of contrast. There is also streak artifact from multiple clips in the epigastric region. No obvious intrahepatic lesions are identified. No calcified gallstones are noted. The spleen, pancreas and adrenal glands show no acute findings. No renal calculi are present. There are parapelvic renal cysts. No ureteral dilatation or stones are noted. There is atherosclerotic plaque involving the aorta, iliac and some of the visceral arteries. There are small lymph nodes. No ascites is identified. There is previous bariatric surgery. The small bowel loops are normal caliber. Mild stool is present within the colon. There is subtle dextroscoliotic curvature and degenerative changes at the spine, greatest at the lower facets. Images through the pelvis show no dilated small bowel. The distal colon is mostly decompressed. No diverticular disease is noted. The appendix and uterus are surgically absent. The urinary bladder is not well-distended and there is also artifact from patient's left hip prosthesis that limits assessment. No ascites is seen. There is a patulous right inguinal ring containing fat. CT/CT abdomen pelvis wo con IMPRESSION: PARAPELVIC RENAL CYSTS. NO OBSTRUCTIVE UROPATHY OR STONE DISEASE. NO BOWEL OBSTRUCTION. POSTOPERATIVE CHANGES OF BARIATRIC SURGERY. NO ACUTE FINDINGS. Impression dictated by: Daly Granda M.D.10/28/2022 5:06 PM Dictation Location: RADIO--02 Transcribed By: EVER 10/28/221705 Dictated By: Daly Granda MD 10/28/22 1658 Signed By: 10/28/221705 [facility] CT head/brain wo conon 10-28 CT head/brain wo con [facility] [place] [place] [address] CT Scan Report Signed Patient: Rubi Solares MR#: [id number] [birth year] : 1955 Acct:[id number] Age/Sex: 67 / F ADM Date: 10/28/22 Loc: ER Room: Type: [facility] ER Attending Dr: Copies to: Latosha Ocampo MD Ordering Provider: Latosha Ocampo MD Date of Service: 10/28/22 CT/CT head/brain wo con: [facility] CT BRAIN WITHOUT CONTRAST: CLINICAL HISTORY: Headaches and dizziness COMPARISON: 08/06/2015 TECHNIQUE: Contiguous axial unenhanced images were obtained through the brain. This CT exam was performed using one or more following dose reduction techniques: Automated exposure control, adjust ment of the mA and/or kV according to patient size, or use of iterative reconstruction technique. FINDINGS: There is generalized atrophy. The ventricles are normal in size and position. Mild microvascular changes are again noted, greatest near the frontal horn of the left lateral ventricle. There are no additional areas of abnormal attenuation. There is no hemorrhage, mass effect or extra-axial collections. The imaged paranasal sinuses and mastoid air cells are clear. CT/CT head/brain wo con IMPRESSION: ATROPHY AND CHRONIC MICROVASCULAR CHANGES. NO ACUTE INTRACRANIAL ABNORMALITY. Impression dictated by: Daly Granda M.D.10/28/2022 4:56 PM Dictation Location: RADIO-PC-02 Transcribed By: EVER 10/28/221655 Dictated By: Daly Granda MD 10/28/221650 Signed By: 10/28/221655 Normal [facility] Calcium [Mass/volume] in Ser um or PlasmaOrdered By: Latosha Ocampo on 10-28-2022 Calcium [Mass/Vol] 8.9 mg/dL Normal 8.6-10.3 [facility] Comment on above: Performed By: #### C MP, CBC ####[facility] [id number] [place] [address] Carbon dioxide, total [Moles /volume] in Serum or PlasmaOrdered By: Latosha Ocampo on 10-28-2022 CO2 [Moles/Vol] 28.3 mmol/L Normal 21.0-31.0 [facility] Comment on above: Performed By: #### C MP, CBC ####[address] Casts typing in urine sedime nt by light microscopyOrdered By: Latosha Ocampo on 10-28-2022 Casts LM Nom (Urine sed) N/A [facility] Chloride [Moles/volume] in S smith or PlasmaOrdered By: Latosha Ocampo on 10-28-2022 Chloride [Moles/Vol] 110 mmol/L High 98-107 [facility] Comment on above: Performed By: #### C MP, CBC ####[address] Color Auto (U)Ordered By: Macie Ocampo on 10-28-2022 Color (U) Yellow Yellow [facility] Complete Blood Count Auto Di ffon 10-28-2022 Mean Corpuscular HGB Conc 32.7 g/dL Normal 32.0-35.0 [facility] Comment on above: Performed By: #### C MP, CBC #### [facility] [address] Monocytes/100 WBC (Bld) 15.69 % Normal 0.00-20.00 [facility] Comment on above: Performed By: #### C MP, CBC #### [facility] [address] NRBC% 0.0 /100{WBC} Normal 0-0.5 [facility] Comment on above: Performed By: #### C MP, CBC #### [facility] [address] Comprehensive Metabolic Pane aby 10-28-2022 Albumin [Mass/Vol] 4.0 g/dL Normal 3.5-5.7 [facility] Comment on above: Performed By: #### C MP, CBC ####[place] [id number] [address] Creatinine Clr Calc Pharmacy 63.93 Normal [facility] Comment on above: Result Comment: PERF ORMED BY: [place] [address] PATHOLOGIST SEISMOGRAPH OBSERVER RAFAEL TAVERAS M.D. Performed By: #### C MP, CBC ####[address] GFR/1.73 sq M.predicted MDRD (S/P/Bld) [Vol rate/Area] mL/min/{1.73_m2} Normal [facility] Comment on above: Performed By: #### C MP, CBC ####[address] Creatinine [Mass/volume] in Serum or PlasmaOrdered By: Latosha Ocampo on 10-28-2022 Creatinine [Mass/Vol] 0.90 mg/dL Normal 0.60-1.20 [facility] Comment on above: Performed By: #### C MP, CBC ####[address] Dipstick and Microscopicon 0 10-28-2022 Appearance (U) Clear Normal Clear [facility] Comment on above: Order Comment: Name Collection Type:: Clean-Voided Midstream Performed By: #### A DDONUAPLUS ####[address] Bacteria,Urine None Seen Normal None Seen [facility] Comment on above: Order Comment: Name Collection Type:: Clean-Voided Midstream Performed By: #### A DDONUAPLUS ####[place] [id number] [place] [address] [facility] Bilirubin,Urine Negative Normal Negative [facility] Comment on above: Order Comment: Name Collection Type:: Clean-Voided Midstream Performed By: #### A DDONUAPLUS ####[place] [id number] [facility] Color (U) Yellow Normal Yellow [facility] Comment on above: Order Comment: Name Collection Type:: Clean-Voided Midstream Performed By: #### A DDONUAPLUS ####[address] [address] [facility] Glucose Ql (U) Normal Normal Normal [facility] Comment on above: Order Comment: Name Collection Type:: Clean-Voided Midstream Performed By: #### A DDONUAPLUS ####[place] [id number] [facility] Hyaline Casts,Urine 5-9 High 0-1 [facility] Comment on above: Order Comment: Name Collection Type:: Clean-Voided Midstream Result Comment: PERF ORMED BY: [facility] [address] [place] [address] PATHOLOGIST SEISMOGRAPH OBSERVER RAFAEL TAVERAS M.D. Performed By: #### A DDONUAPLUS ####[place] [id number] [facility] Ketones Ql (U) Trace High Negative [facility] Comment on above: Order Comment: Name Collection Type:: Clean-Voided Midstream Performed By: #### A DDONUAPLUS ####[address] [address] [facility] Leukocyte esterase Test strip Ql (U) 2+ High Negative [facility] Comment on above: Order Comment: Name Collection Type:: Clean-Voided Midstream Performed By: #### A DDONUAPLUS ####[place] [id number] [facility] Nitrite,Urine Negative Normal Negative [facility] Comment on above: Order Comment: Name Collection Type:: Clean-Voided Midstream Performed By: #### A DDONUAPLUS ####[address] [address] [facility] Occult Blood,Urine Negative Normal Negative [facility] Comment on above: Order Comment: Name Collection Type:: Clean-Voided Midstream Result Comment: PERF ORMED BY: [facility] [address] [place] [id number] PATHOLOGIST SEISMOGRAPH OBSERVER RAFAEL TAVERAS M.D. Performed By: #### A DDONUAPLUS ####[address] [address] [facility] pH (U) 6.0 [pH] Normal 5.0-9.0 [facility] Comment on above: Order Comment: Name Collection Type:: Clean-Voided Midstream Performed By: #### A DDONUAPLUS ####[place] [id number] [facility] Protein,Urine Negative Normal Negative [facility] Comment on above: Order Comment: Name Collection Type:: Clean-Voided Midstream Performed By: #### A DDONUAPLUS ####[place] [id number] [facility] RBC,Urine 3-4 Normal 0-4 [facility] Comment on above: Order Comment: Name Collection Type:: Clean-Voided Midstream Performed By: #### A DDONUAPLUS ####[place] [id number] [facility] Specificy [place],Urine 1.021 Normal 1.001-1.030 [facility] Comment on above: Order Comment: Name Collection Type:: Clean-Voided Midstream Performed By: #### A DDONUAPLUS ####[place] [id number] [facility] Squamous Epithelial Cell,Urine 5-9 High 0-2 [facility] Comment on above: Order Comment: Name Collection Type:: Clean-Voided Midstream Performed By: #### A DDONUAPLUS ####[address] [address] [facility] Urobilinogen,Urine Normal Normal Normal [facility] Comment on above: Order Comment: Name Collection Type:: Clean-Voided Midstream Performed By: #### A DDONUAPLUS ####[facility] [id number] WBC,Urine 3-4 Normal 0-4 [facility] Comment on above: Order Comment: Name Collection Type:: Clean-Voided Midstream Performed By: #### A DDONUAPLUS ####[facility] [id number] [place] [id number] [facility] ECG 12 lead ECGon 10-28-2022 ECG 12 lead ECG [facility] [address] [place] [address] [place] [address] Electrocardiograph Report Signed Patient: Rubi Solares MR#: [id number] [birth year] : 1955 Acct:[id number] Age/Sex: 67 / F ADM Date: 10/28/22 Loc: ER Room: Type: [facility] ER Attending Dr: Ordering Provider: Latosha Ocampo MD Date of Service: 10/28/22 ECG/ECG 12 lead ECG: Nausea/Vomiting/Diarr hea Copies to: Test Reason : Blood Pressure : 143/088 mmHG Vent. Rate : 071 BPM Atrial Rate : 070 BPM P-R Int : 000 ms QRS Dur : 154 ms QT Int : 448 ms P-R-T Axes : 000 -57 086 degrees QTc Int : 486 ms Ventricular-paced rhythm Abnormal ECG When compared with ECG of 16-OCT-2022 07:34, Electronic ventricular pacemaker has replaced Sinus rhythm Confirmed by LATOSHA OCAMPO MD ([id number]) on 10/29/2022 1:23:14 AM Referred By: Electronically Signed By:LATOSHA OCAMPO MD Transcribed By: MUS Signed By Latosha Ocampo MD 10/29/22122 Normal [facility] Erythrocyte distribution wid th [Ratio] by Automated countOrdered By: Latosha Ocampo on 10-28-2022 Erythrocyte distribution width (RBC) [Ratio] 14.7 % Normal 11.9-15.3 [facility] Comment on above: Performed By: #### C MP, CBC #### [facility] [address] [place] [address] [place] Erythrocytes [#/volume] in B lood by Automated countOrdered By: Latosha Ocampo on 10-28-2022 RBC (Bld) [#/Vol] 4.27 10*6/uL Normal 3.60-5.00 [facility] Comment on above: Performed By: #### C MP, CBC #### [facility] [address] [place] [address] [place] Glucose [Mass/volume] in Ser um or PlasmaOrdered By: Latosha Ocampo on 10-28-2022 Glucose [Mass/Vol] 87 mg/dL Normal 70-100 [facility] Comment on above: ADA recommended refe rence rangeRandom Glucose Reference Range is dependent on time and content of last meal. Glucose of more than 200 mg/dL in a nonstressed, ambulatory subject supports the diagnosis of Diabetes Mellitus. Result Comment: [place] Glucose Reference Range is dependent on time and content of last meal. Glucose of more than 200 mg/dL in a nonstressed, ambulatory subject supports the diagnosis of Diabetes Mellitus. ADA recommended reference range Performed By: #### C MP, CBC ####[facility] Hematocrit [Volume Fraction] of Blood by Automated countOrdered By: Latosha Ocampo on 10-28-2022 Hematocrit (Bld) [Volume fraction] 37.2 % Normal 34.0-46.4 [facility] Comment on above: Performed By: #### C MP, CBC #### [facility] [address] [place] [address] [place] Hemoglobin [Mass/volume] in BloodOrdered By: Latosha Ocampo on 10-28-2022 Hemoglobin (Bld) [Mass/Vol] 12.2 g/dL Normal 11.8-15.4 [facility] Comment on above: Performed By: #### C MP, CBC #### [facility] [address] Ketones Auto test strip (U) [Mass/Vol]Ordered By: Latosha Ocampo on 10-28-2022 Ketones (U) [Mass/Vol] Trace Negative [facility] Leukocytes [#/volume] correc radhika for nucleated erythrocytes in Blood by Automated counOrdered By: Latosha Ocampo on 10-28-2022 WBC corrected for nucl RBC Auto (Bld) [#/Vol] 6.7 10*3/uL 3.8-11.6 [facility] Leukocytes [#/volume] in Blo od by Automated countOrdered By: Latosha Ocampo on 10-28-2022 WBC (Bld) [#/Vol] 6.7 10*3/uL Normal 3.8-11.6 [facility] Comment on above: Performed By: #### C MP, CBC #### [facility] [address] [place] [address] [place] Lipase [Enzymatic activity/v olume] in Serum or PlasmaOrdered By: Latosha Ocampo on 10-28-2022 Lipase [Catalytic activity/Vol] 23.0 U/L Normal 11.0-82.0 [facility] Comment on above: Result Comment: PERF ORMED BY: [place] [address] PATHOLOGIST SEISMOGRAPH OBSERVER RAFAEL TAVERAS M.D. Performed By: #### L IPASE #### [facility] [address] [place] [address] [place] Lymphocytes [#/volume] in Bl ood by Automated countOrdered By: Latosha Ocampo on 10-28-2022 Lymphocytes (Bld) [#/Vol] 1.3 10*3/uL Normal 1.00-4.8 [facility] Comment on above: Performed By: #### C MP, CBC #### [facility] [address] [place] [address] [place] Lymphocytes/100 leukocytes i n Blood by Automated countOrdered By: Latosha Ocampo on 10-28-2022 Lymphocytes/100 WBC (Bld) 18.9 % Normal . [facility] Comment on above: Performed By: #### C MP, CBC #### [place] [address] [place] MCH [Entitic mass] by Automa radhika countOrdered By: Latosha Ocampo on 10-28-2022 MCH (RBC) [Entitic mass] 28.5 pg Normal 24.7-34.3 [facility] Comment on above: Performed By: #### C MP, CBC #### [facility] [address] [place] [address] MCHC Auto (RBC) [Mass/Vol]Or dered By: Latosha Ocampo on 10-28-2022 MCHC (RBC) [Mass/Vol] 32.7 g/dL 32.0-35.0 [facility] MCV [Entitic volume] by Auto mated countOrdered By: Latosha Ocampo on 10-28-2022 MCV (RBC) [Entitic vol] 87.1 fL Normal 80-100 [facility] Comment on above: Performed By: #### C MP, CBC #### [address] Monocyte distribution width [Entitic volume] in Blood by AutomatedOrdered By: Latosha Ocampo on 10-28-2022 Monocyte distribution width Auto (Bld) [Entitic vol] 15.69 % 0.00-20.00 [facility] Neutrophils [#/volume] in Bl ood by Automated countOrdered By: Latosha Ocampo on 10-28-2022 Neutrophils (Bld) [#/Vol] 5.0 10*3/uL Normal 1.8-7.7 [facility] Comment on above: Performed By: #### C MP, CBC #### [address] Nitrite Test strip Ql (U)Ord ered By: Latosha Ocampo on 10-28-2022 Nitrite Ql (U) Negative Negative [facility] No Panel InformationOrdered By: Latosha Ocampo on 10-28-2022 Estimated GFR (CKD-EPI) > 60.0 mL/Min [facility] Creatinine Clearance (Chem 63.93 [facility] Nucleated erythrocytes [Pres ence] in Blood by Automated countOrdered By: Latosha Ocampo on 10-28-2022 Nucleated RBC Auto Ql (Bld) 0.0 /100{WBC} 0-0.5 [facility] Platelet mean volume [Entiti c volume] in Blood by Automated countOrdered By: Latosha Ocampo on 10-28-2022 Platelet mean volume (Bld) [Entitic vol] 8.6 fL Normal 6.3-10.7 [facility] Comment on above: Performed By: #### C MP, CBC #### [facility] [address] Platelets [#/volume] in Bloo d by Automated countOrdered By: Latosha Ocampo on 10-28-2022 Platelets (Bld) [#/Vol] 193 10*3/uL Normal 150-450 [facility] Comment on above: Performed By: #### C MP, CBC #### [facility] [address] Potassium [Moles/volume] in Serum or PlasmaOrdered By: Latosha Ocampo on 10-28-2022 Potassium [Moles/Vol] 3.9 mmol/L Normal 3.5-5.1 [facility] Comment on above: Performed By: #### C MP, CBC ####[address] Protein Auto test strip (U) [Mass/Vol]Ordered By: Latosha Ocampo on 10-28-2022 Protein (U) [Mass/Vol] Negative Negative [facility] Protein [Mass/volume] in Ser um or PlasmaOrdered By: Latosha Ocampo on 10-28-2022 Protein [Mass/Vol] 6.4 g/dL Normal 6.4-8.9 [facility] Comment on above: Performed By: #### C MP, CBC ####[address] Serum globulin measurement b y calculation (mass/volume)Ordered By: Latosha Ocampo on 10-28-2022 Globulin (S) [Mass/Vol] 2.4 g/dL Normal [facility] Comment on above: Performed By: #### C MP, CBC ####[address] Serum or plasma albumin/glob ulin mass ratioOrdered By: Latosha Ocampo on 10-28-2022 Albumin/Globulin [Mass ratio] 1.7 {ratio} Normal [facility] Comment on above: Performed By: #### C MP, CBC ####[facility] Serum or plasma anion gap de terminationOrdered By: Latosha Ocampo on 10-28-2022 Anion gap [Moles/Vol] 8.6 mmol/L Normal 6.0-15.0 [facility] Comment on above: Performed By: #### C MP, CBC ####[address] Sodium [Moles/volume] in Ser um or PlasmaOrdered By: Latosha Ocampo on 10-28-2022 Sodium [Moles/Vol] 143 mmol/L Normal 136-145 [facility] Comment on above: Performed By: #### C MP, CBC ####[place] [id number] [address] Specific gravity Auto test s trip (U) [Rel density]Ordered By: Latosha Ocampo on 10-28-2022 Specific gravity (U) [Rel density] 1.021 1.001-1.030 [facility] Squamous epithelial cells de tection in urine sediment by light microscopyOrdered By: Latosha Ocampo on 10-28-2022 Epithelial cells.squamous LM Ql (Urine sed) 5-9 [HPF] 0-2 [facility] Urea nitrogen [Mass/volume] in Serum or PlasmaOrdered By: Latosha Ocampo on 10-28-2022 Urea nitrogen [Mass/Vol] 12 mg/dL Normal 7-25 [facility] Comment on above: Performed By: #### C MP, CBC ####[address] Urine bacteria detection by automated methodOrdered By: Latosha Ocampo on 10-28-2022 Bacteria Auto Ql (U) None seen None Seen [facility] Urine clarity by refractomet ry automatedOrdered By: Latosha Ocampo on 10-28-2022 Clarity Refractometry automated (U) Clear Clear [facility] Urine glucose measurement by automated test strip (mass/volume)Ordered By: Latosha Ocampo on 10-28-2022 Glucose Auto test strip (U) [Mass/Vol] Normal mg/dL Normal [facility] Urine hemoglobin detection b y automated test stripOrdered By: Latosha Ocampo on 10-28-2022 Hemoglobin Auto test strip Ql (U) Negative Negative [facility] Urine leukocyte esterase det ection by automated test stripOrdered By: Latosha Ocampo on 10-28-2022 Leukocyte esterase Auto test strip Ql (U) 2+ Negative [facility] Urobilinogen Auto test strip (U) [Mass/Vol]Ordered By: Latosha Ocampo on 10-28-2022 Urobilinogen (U) [Mass/Vol] Normal mg/dL Normal [facility] pH Auto test strip (U)Ordere d By: Latosha Ocampo on 10-28-2022 pH (U) 6.0 [pH] 5.0-9.0 [facility] Basic Metabolic Panelon Anion gap [Moles/Vol] 8.6 mmol/L Normal 6.0-15.0 [facility] Comment on above: Performed By: #### C BC, MG, BMP #### [facility] [address] [place] [address] [place] Calcium [Mass/Vol] 9.3 mg/dL Normal 8.6-10.3 [facility] Comment on above: Performed By: #### C BC, MG, BMP #### [facility] [address] [place] [id number] [place] Chloride [Moles/Vol] 105 mmol/L Normal 98-107 [facility] Comment on above: Performed By: #### C BC, MG, BMP #### [facility] [address] [place] [id number] [place] CO2 [Moles/Vol] 32.6 mmol/L High 21.0-31.0 [facility] Comment on above: Performed By: #### C BC, MG, BMP #### [facility] [address] [place] [id number] [place] Creatinine [Mass/Vol] 1.22 mg/dL High 0.60-1.20 [facility] Comment on above: Performed By: #### C BC, MG, BMP #### [facility] [address] [place] [id number] [place] Creatinine Clr Calc Pharmacy 47.19 Normal [facility] Comment on above: Performed By: #### C BC, MG, BMP #### [facility] [address] [place] [address] [place] GFR/1.73 sq M.predicted MDRD (S/P/Bld) [Vol rate/Area] 48.038 mL/min/{1.73_m2} Normal [facility] Comment on above: Performed By: #### C BC, MG, BMP #### [facility] [address] Glucose [Mass/Vol] 87 mg/dL Normal 70-100 [facility] Comment on above: Result Comment: [facility] Glucose Reference Range is dependent on time and content of last meal. Glucose of more than 200 mg/dL in a nonstressed, ambulatory subject supports the diagnosis of Diabetes Mellitus. ADA recommended reference range Performed By: #### C BC, MG, BMP #### [facility] [address] Potassium [Moles/Vol] 4.2 mmol/L Normal 3.5-5.1 [facility] Comment on above: Performed By: #### C BC, MG, BMP #### [facility] [address] [place] [address] [place] Sodium [Moles/Vol] 142 mmol/L Normal 136-145 [facility] Comment on above: Performed By: #### C BC, MG, BMP #### [facility] [address] [place] [address] [place] Urea nitrogen [Mass/Vol] 33 mg/dL High 7-25 [facility] Comment on above: Performed By: #### C BC, MG, BMP #### [facility] [address] [place] [address] [place] Basophils Auto (Bld) [#/Vol] Ordered By: Ilsa Eagle on 10-17-2022 Basophils (Bld) [#/Vol] 0.0 10*3/uL 0.0-0.2 [facility] Basophils/100 WBC Auto (Bld) Ordered By: Ilsa Eagle on 10-17-2022 Basophils/100 WBC (Bld) 0.3 % . [facility] Calcium [Mass/volume] in Ser um or PlasmaOrdered By: Ilsa Eagle on 10-17-2022 Calcium [Mass/Vol] 9.3 mg/dL 8.6-10.3 [facility] Carbon dioxide, total [Moles /volume] in Serum or PlasmaOrdered By: Ilsa Eagle on 10-17-2022 CO2 [Moles/Vol] 32.6 mmol/L 21.0-31.0 [facility] Chloride [Moles/volume] in S smith or PlasmaOrdered By: Ilsa Eagle on 10-17-2022 Chloride [Moles/Vol] 105 mmol/L 98-107 [facility] Complete Blood Count Auto Di ffon 10-17-2022 Basophils (Bld) [#/Vol] 0.0 10*3/uL Normal 0.0-0.2 [facility] Comment on above: Result Comment: PERF ORMED BY: [place] [address] PATHOLOGIST SEISMOGRAPH OBSERVER RAFAEL TAVERAS M.D. Performed By: #### C BC, MG, BMP #### [facility] [address] Basophils/100 WBC (Bld) 0.3 % Normal . [facility] Comment on above: Performed By: #### C BC, MG, BMP #### [facility] [address] Eosinophils (Bld) [#/Vol] 0.2 10*3/uL Normal 0.0-0.45 [facility] Comment on above: Performed By: #### C BC, MG, BMP #### [facility] [address] [place] [address] [place] Eosinophils/100 WBC (Bld) 3.4 % Normal . [facility] Comment on above: Performed By: #### C BC, MG, BMP #### [facility] [address] Erythrocyte distribution width (RBC) [Ratio] 14.1 % Normal 11.9-15.3 [facility] Comment on above: Performed By: #### C BC, MG, BMP #### [facility] [address] Hematocrit (Bld) [Volume fraction] 39.4 % Normal 34.0-46.4 [facility] Comment on above: Performed By: #### C BC, MG, BMP #### [address] Hemoglobin (Bld) [Mass/Vol] 12.9 g/dL Normal 11.8-15.4 [facility] Comment on above: Performed By: #### C BC, MG, BMP #### [address] Lymphocytes (Bld) [#/Vol] 1.5 10*3/uL Normal 1.00-4.8 [facility] Comment on above: Performed By: #### C BC, MG, BMP #### [address] Lymphocytes/100 WBC (Bld) 29.0 % Normal . [facility] Comment on above: Performed By: #### C BC, MG, BMP #### [address] MCH (RBC) [Entitic mass] 28.4 pg Normal 24.7-34.3 [facility] Comment on above: Performed By: #### C BC, MG, BMP #### [address] MCV (RBC) [Entitic vol] 86.8 fL Normal 80-100 [facility] Comment on above: Performed By: #### C BC, MG, BMP #### [address] Mean Corpuscular HGB Conc 32.8 g/dL Normal 32.0-35.0 [facility] Comment on above: Performed By: #### C BC, MG, BMP #### [address] Monocytes (Bld) [#/Vol] 0.5 10*3/uL Normal 0.0-0.8 [facility] Comment on above: Performed By: #### C BC, MG, BMP #### [facility] [address] [place] [address] [place] Monocytes/100 WBC (Bld) 9.5 % Normal . [facility] Comment on above: Performed By: #### C BC, MG, BMP #### [facility] [address] [place] [address] [place] Neutrophils (Bld) [#/Vol] 3.0 10*3/uL Normal 1.8-7.7 [facility] Comment on above: Performed By: #### C BC, MG, BMP #### [facility] [address] Neutrophils/100 WBC (Bld) 57.8 % Normal . [facility] Comment on above: Performed By: #### C BC, MG, BMP #### [facility] [address] [place] [address] [place] NRBC% 0.1 /100{WBC} Normal 0-0.5 [facility] Comment on above: Performed By: #### C BC, MG, BMP #### [facility] [address] [place] [address] [place] Platelet mean volume (Bld) [Entitic vol] 8.6 fL Normal 6.3-10.7 [facility] Comment on above: Performed By: #### C BC, MG, BMP #### [facility] [address] [place] [address] [place] Platelets (Bld) [#/Vol] 212 10*3/uL Normal 150-450 [facility] Comment on above: Performed By: #### C BC, MG, BMP #### [facility] [address] [place] [address] [place] RBC (Bld) [#/Vol] 4.54 10*6/uL Normal 3.60-5.00 [facility] Comment on above: Performed By: #### C BC, MG, BMP #### [facility] [address] [place] [address] [place] WBC (Bld) [#/Vol] 5.2 10*3/uL Normal 3.8-11.6 [facility] Comment on above: Performed By: #### C BC, MG, BMP #### [facility] [address] Creatinine [Mass/volume] in Serum or PlasmaOrdered By: Ilsa Eagle on 10-17-2022 Creatinine [Mass/Vol] 1.22 mg/dL 0.60-1.20 [facility] Eosinophils Auto (Bld) [#/Vo l]Ordered By: Ilsa Eagle on 10-17-2022 Eosinophils (Bld) [#/Vol] 0.2 10*3/uL 0.0-0.45 [facility] Eosinophils/100 WBC Auto (Bl d)Ordered By: Ilsa Eagle on 10-17-2022 Eosinophils/100 WBC (Bld) 3.4 % . [facility] Erythrocyte distribution wid th Auto (RBC) [Ratio]Ordered By: Ilsa Eagle on 10-17-2022 Erythrocyte distribution width (RBC) [Ratio] 14.1 % 11.9-15.3 [facility] Fecal occult blood detection by immunochemistryOrdered By: Ilsa Eagle on 10-17-2022 Hemoglobin.gastrointestin al Ql (Stl) [facility] Glucose [Mass/volume] in Ser um or PlasmaOrdered By: Ilsa Eagle on 10-17-2022 Glucose [Mass/Vol] 87 mg/dL 70-100 [facility] Comment on above: ADA recommended refe rence rangeRandom Glucose Reference Range is dependent on time and content of last meal. Glucose of more than 200 mg/dL in a nonstressed, ambulatory subject supports the diagnosis of Diabetes Mellitus. Hematocrit Auto (Bld) [Volum e fraction]Ordered By: Ilsa Eagle on 10-17-2022 Hematocrit (Bld) [Volume fraction] 39.4 % 34.0-46.4 [facility] Hemoglobin [Mass/volume] in BloodOrdered By: Ilsa Eagle on 10-17-2022 Hemoglobin (Bld) [Mass/Vol] 12.9 g/dL 11.8-15.4 [facility] Leukocytes [#/volume] correc radhika for nucleated erythrocytes in Blood by Automated counOrdered By: Ilsa Eagle on 10-17-2022 WBC corrected for nucl RBC Auto (Bld) [#/Vol] 5.2 10*3/uL 3.8-11.6 [facility] Lymphocytes Auto (Bld) [#/Vo l]Ordered By: Ilsa Eagle on 10-17-2022 Lymphocytes (Bld) [#/Vol] 1.5 10*3/uL 1.00-4.8 [facility] Lymphocytes/100 WBC Auto (Bl d)Ordered By: Ilsa Eagle on 10-17-2022 Lymphocytes/100 WBC (Bld) 29.0 % . [facility] MCH Auto (RBC) [Entitic mass ]Ordered By: Ilsa Eagle on 10-17-2022 MCH (RBC) [Entitic mass] 28.4 pg 24.7-34.3 [facility] MCHC Auto (RBC) [Mass/Vol]Or dered By: Ilsa Eagle on 10-17-2022 MCHC (RBC) [Mass/Vol] 32.8 g/dL 32.0-35.0 [facility] MCV Auto (RBC) [Entitic vol] Ordered By: Ilsa Eagle on 10-17-2022 MCV (RBC) [Entitic vol] 86.8 fL 80-100 [facility] Magnesiumon 10-17-2022 Magnesium [Mass/Vol] 2.1 mg/dL Normal 1.9-2.7 [facility] Comment on above: Result Comment: PERF ORMED BY: [place] [address] PATHOLOGIST SEISMOGRAPH OBSERVER RAFAEL TAVERAS M.D. Performed By: #### C BC, MG, BMP #### [address] Magnesium [Mass/volume] in S smith or PlasmaOrdered By: Ilsa Eagle on 10-17-2022 Magnesium [Mass/Vol] 2.1 mg/dL 1.9-2.7 [facility] Monocytes Auto (Bld) [#/Vol] Ordered By: Ilsa Eagle on 10-17-2022 Monocytes (Bld) [#/Vol] 0.5 10*3/uL 0.0-0.8 [facility] Monocytes/100 WBC Auto (Bld) Ordered By: Ilsa Eagle on 10-17-2022 Monocytes/100 WBC (Bld) 9.5 % . [facility] Neutrophils Auto (Bld) [#/Vo l]Ordered By: Ilsa Eagle on 10-17-2022 Neutrophils (Bld) [#/Vol] 3.0 10*3/uL 1.8-7.7 [facility] Neutrophils/100 WBC Auto (Bl d)Ordered By: Ilsa Eagle on 10-17-2022 Neutrophils/100 WBC (Bld) 57.8 % . [facility] No Panel InformationOrdered By: Ilsa Eagle on 10-17-2022 Estimated GFR (CKD-EPI) 48.038 mL/Min [facility] Creatinine Clearance (Chem 47.19 [facility] Nucleated erythrocytes [Pres ence] in Blood by Automated countOrdered By: Ilsa Eagle on 10-17-2022 Nucleated RBC Auto Ql (Bld) 0.1 /100{WBC} 0-0.5 [facility] Platelet mean volume Auto (B ld) [Entitic vol]Ordered By: Ilsa Eagle on 10-17-2022 Platelet mean volume (Bld) [Entitic vol] 8.6 fL 6.3-10.7 [facility] Platelets Auto (Bld) [#/Vol] Ordered By: Ilsa Eagle on 10-17-2022 Platelets (Bld) [#/Vol] 212 10*3/uL 150-450 [facility] Potassium [Moles/volume] in Serum or PlasmaOrdered By: Ilsa Eagle on 10-17-2022 Potassium [Moles/Vol] 4.2 mmol/L 3.5-5.1 [facility] RBC Auto (Bld) [#/Vol]Ordere d By: Ilsa Eagle on 10-17-2022 RBC (Bld) [#/Vol] 4.54 10*6/uL 3.60-5.00 [facility] Serum or plasma anion gap de terminationOrdered By: Ilsa Eagle on 10-17-2022 Anion gap [Moles/Vol] 8.6 mmol/L 6.0-15.0 [facility] Sodium [Moles/volume] in Ser um or PlasmaOrdered By: Ilsa Eagle on 10-17-2022 Sodium [Moles/Vol] 142 mmol/L 136-145 [facility] Stool Occult Blood (Guaiac)o n 10-17-2022 Stool Occult Blood (Guaiac) Occult Blood Negative for Occult Blood by Guaiac Methodology Reference range = Negative PERFORMED BY: [facility] [address] [place] [address] PATHOLOGIST SEISMOGRAPH OBSERVER RAFAEL TAVERAS M.D. [facility] Comment on above: Performed By: #### O B(GUAIAC) ####[facility] [place] [address] [facility] Urea nitrogen [Mass/volume] in Serum or PlasmaOrdered By: Ilsa Eagle on 10-17-2022 Urea nitrogen [Mass/Vol] 33 mg/dL 7-25 [facility] WBC Auto (Bld) [#/Vol]Ordere d By: Ilsa Eagle on 10-17-2022 WBC (Bld) [#/Vol] 5.2 10*3/uL 3.8-11.6 [facility] Automated erythrocytes count in urine sediment (number/area)Ordered By: Ilsa Eagle on 10-16-2022 RBC Auto (Urine sed) [#/Area] 1-2 [HPF] 0-4 [facility] Automated leukocytes count i n urine sediment (number/area)Ordered By: Ilsa Eagle on 10-16-2022 WBC Auto (Urine sed) [#/Area] 20-49 [HPF] 0-4 [facility] Basic Metabolic Panelon 07-0 Anion gap [Moles/Vol] 8.4 mmol/L Normal 6.0-15.0 [facility] Comment on above: Performed By: #### B MP, CBC, HS TROP, LIPID, MG ####[place] [id number] [facility] Calcium [Mass/Vol] 8.9 mg/dL Normal 8.6-10.3 [facility] Comment on above: Performed By: #### B MP, CBC, HS TROP, LIPID, MG ####[place] [id number] [facility] Chloride [Moles/Vol] 110 mmol/L High 98-107 [facility] Comment on above: Performed By: #### B MP, CBC, HS TROP, LIPID, MG ####[place] [id number] [facility] CO2 [Moles/Vol] 29.4 mmol/L Normal 21.0-31.0 [facility] Comment on above: Performed By: #### B MP, CBC, HS TROP, LIPID, MG ####[place] [id number] [facility] Creatinine [Mass/Vol] 0.86 mg/dL Normal 0.60-1.20 [facility] Comment on above: Performed By: #### B MP, CBC, HS TROP, LIPID, MG ####[place] [id number] [facility] Creatinine Clr Calc Pharmacy 66.31 [facility] Comment on above: Performed By: #### B MP, CBC, HS TROP, LIPID, MG ####[place] [id number] [facility] GFR/1.73 sq M.predicted MDRD (S/P/Bld) [Vol rate/Area] mL/min/{1.73_m2} [facility] Comment on above: Performed By: #### B MP, CBC, HS TROP, LIPID, MG ####[place] [id number] [facility] Glucose [Mass/Vol] 76 mg/dL Normal 70-100 [facility] Comment on above: Result Comment: [facility] Glucose Reference Range is dependent on time and content of last meal. Glucose of more than 200 mg/dL in a nonstressed, ambulatory subject supports the diagnosis of Diabetes Mellitus. ADA recommended reference range Performed By: #### B MP, CBC, HS TROP, LIPID, MG ####[facility] [id number] [place] [address] [facility] Potassium [Moles/Vol] 3.8 mmol/L Normal 3.5-5.1 [facility] Comment on above: Performed By: #### B MP, CBC, HS TROP, LIPID, MG ####[facility] [id number] [place] [address] [facility] Sodium [Moles/Vol] 144 mmol/L Normal 136-145 [facility] Comment on above: Performed By: #### B MP, CBC, HS TROP, LIPID, MG ####[facility] [place] [address] [facility] Urea nitrogen [Mass/Vol] 30 mg/dL High 7-25 [facility] Comment on above: Performed By: #### B MP, CBC, HS TROP, LIPID, MG ####[facility] [place] [address] [facility] Bilirubin Test strip Ql (U)O rdered By: Ilsa Eagle on 10-16-2022 Bilirubin Ql (U) Negative Negative [facility] Cholesterol [Mass/volume] in Serum or PlasmaOrdered By: Mary Ocampo on 10-16-2022 Cholesterol [Mass/Vol] 149 mg/dL 140-200 [facility] Comment on above: Chol less than 200 m g/dl low riskChol 201-239 mg/dl borderline riskChol 240 mg/dl and greater high risk Cholesterol in LDL Calc [Mas s/Vol]Ordered By: Mary Ocampo on 10-16-2022 Cholesterol in LDL [Mass/Vol] 81 mg/dL 0-100 [facility] Comment on above: LDL ATP III CLASSIFI CATIONLDL less than 100 mg/dL OptimalLDL 100-129 mg/dL Near or above optimalLDL 130-159 mg/dL Borderline highLDL 160-189 mg/dL HighLDL greater than 189 mg/dL Very high Cholesterol in VLDL Calc [Ma ss/Vol]Ordered By: Mary Ocampo on 10-16-2022 Cholesterol in VLDL [Mass/Vol] 16 mg/dL [facility] Color Auto (U)Ordered By: Esha Eagle on 10-16-2022 Color (U) Yellow Yellow [facility] Complete Blood Count Auto Di ffon 10-16-2022 Basophils (Bld) [#/Vol] 0.0 10*3/uL Normal 0.0-0.2 [facility] Comment on above: Result Comment: PERF ORMED BY: [facility] [address] [place] [address] PATHOLOGIST SEISMOGRAPH OBSERVER RAFAEL TAVERAS M.D. Performed By: #### B MP, CBC, HS TROP, LIPID, MG ####[address] Basophils/100 WBC (Bld) 0.2 % Normal . [facility] Comment on above: Performed By: #### B MP, CBC, HS TROP, LIPID, MG ####[address] Eosinophils (Bld) [#/Vol] 0.1 10*3/uL Normal 0.0-0.45 [facility] Comment on above: Performed By: #### B MP, CBC, HS TROP, LIPID, MG ####[address] Eosinophils/100 WBC (Bld) 1.3 % Normal . [facility] Comment on above: Performed By: #### B MP, CBC, HS TROP, LIPID, MG ####[address] Erythrocyte distribution width (RBC) [Ratio] 14.4 % Normal 11.9-15.3 [facility] Comment on above: Performed By: #### B MP, CBC, HS TROP, LIPID, MG ####[address] Hematocrit (Bld) [Volume fraction] 37.3 % Normal 34.0-46.4 [facility] Comment on above: Performed By: #### B MP, CBC, HS TROP, LIPID, MG ####[address] Hemoglobin (Bld) [Mass/Vol] 12.2 g/dL Normal 11.8-15.4 [facility] Comment on above: Performed By: #### B MP, CBC, HS TROP, LIPID, MG ####[address] Lymphocytes (Bld) [#/Vol] 1.1 10*3/uL Normal 1.00-4.8 [facility] Comment on above: Performed By: #### B MP, CBC, HS TROP, LIPID, MG ####[address] Lymphocytes/100 WBC (Bld) 15.8 % Normal . [facility] Comment on above: Performed By: #### B MP, CBC, HS TROP, LIPID, MG ####[address] MCH (RBC) [Entitic mass] 28.5 pg Normal 24.7-34.3 [facility] Comment on above: Performed By: #### B MP, CBC, HS TROP, LIPID, MG ####[address] MCV (RBC) [Entitic vol] 87.2 fL Normal 80-100 [facility] Comment on above: Performed By: #### B MP, CBC, HS TROP, LIPID, MG ####[address] Mean Corpuscular HGB Conc 32.7 g/dL Normal 32.0-35.0 [facility] Comment on above: Performed By: #### B MP, CBC, HS TROP, LIPID, MG ####[address] Monocytes (Bld) [#/Vol] 0.6 10*3/uL Normal 0.0-0.8 [facility] Comment on above: Performed By: #### B MP, CBC, HS TROP, LIPID, MG ####[address] Monocytes/100 WBC (Bld) 8.2 % Normal . [facility] Comment on above: Performed By: #### B MP, CBC, HS TROP, LIPID, MG ####[address] Neutrophils (Bld) [#/Vol] 5.0 10*3/uL Normal 1.8-7.7 [facility] Comment on above: Performed By: #### B MP, CBC, HS TROP, LIPID, MG ####[address] Neutrophils/100 WBC (Bld) 74.5 % Normal . [facility] Comment on above: Performed By: #### B MP, CBC, HS TROP, LIPID, MG ####[address] NRBC% 0.2 /100{WBC} Normal 0-0.5 [facility] Comment on above: Performed By: #### B MP, CBC, HS TROP, LIPID, MG ####[address] Platelet mean volume (Bld) [Entitic vol] 8.4 fL Normal 6.3-10.7 [facility] Comment on above: Performed By: #### B MP, CBC, HS TROP, LIPID, MG ####[address] Platelets (Bld) [#/Vol] 159 10*3/uL Normal 150-450 [facility] Comment on above: Performed By: #### B MP, CBC, HS TROP, LIPID, MG ####[address] RBC (Bld) [#/Vol] 4.28 10*6/uL Normal 3.60-5.00 [facility] Comment on above: Performed By: #### B MP, CBC, HS TROP, LIPID, MG ####[place] [id number] WBC (Bld) [#/Vol] 6.7 10*3/uL Normal 3.8-11.6 [facility] Comment on above: Performed By: #### B MP, CBC, HS TROP, LIPID, MG ####[facility] [id number] [place] [address] Dipstick and Microscopicon 0 10-16-2022 Appearance (U) Cloudy Critically abnormal Clear [facility] Comment on above: Order Comment: Name Collection Type:: Clean-Voided Midstream Performed By: #### C UU, ADDONUAPLUS #### [facility] [address] [place] [address] Bacteria,Urine 4+ High None Seen [facility] Comment on above: Order Comment: Name Collection Type:: Clean-Voided Midstream Performed By: #### C UU, ADDONUAPLUS #### [facility] [address] [place] [address] [place] Bilirubin,Urine Negative Normal Negative [facility] Comment on above: Order Comment: Name Collection Type:: Clean-Voided Midstream Performed By: #### C UU, ADDONUAPLUS #### [facility] [address] [place] [address] Color (U) Yellow Normal Yellow [facility] Comment on above: Order Comment: Name Collection Type:: Clean-Voided Midstream Performed By: #### C UU, ADDONUAPLUS #### [facility] [address] [place] [address] [place] Glucose Ql (U) Normal Normal Normal [facility] Comment on above: Order Comment: Name Collection Type:: Clean-Voided Midstream Performed By: #### C UU, ADDONUAPLUS #### [facility] [address] [place] [address] [place] Hyaline Casts,Urine 0-8 Normal 0-8 [facility] Comment on above: Order Comment: Name Collection Type:: Clean-Voided Midstream Result Comment: PERF ORMED BY: [facility] [address] [place] [address] PATHOLOGIST SEISMOGRAPH OBSERVER RAFAEL TAVERAS M.D. Performed By: #### C UU, ADDONUAPLUS #### [address] Ketones Ql (U) Trace High Negative [facility] Comment on above: Order Comment: Name Collection Type:: Clean-Voided Midstream Performed By: #### C UU, ADDONUAPLUS #### [address] Leukocyte esterase Test strip Ql (U) 3+ High Negative [facility] Comment on above: Order Comment: Name Collection Type:: Clean-Voided Midstream Performed By: #### C UU, ADDONUAPLUS #### [address] Nitrite,Urine Negative Normal Negative [facility] Comment on above: Order Comment: Name Collection Type:: Clean-Voided Midstream Performed By: #### C UU, ADDONUAPLUS #### [address] Occult Blood,Urine Negative Normal Negative [facility] Comment on above: Order Comment: Name Collection Type:: Clean-Voided Midstream Result Comment: PERF ORMED BY: [place] [address] PATHOLOGIST SEISMOGRAPH OBSERVER RAFAEL TAVERAS M.D. Performed By: #### C UU, ADDONUAPLUS #### [address] pH (U) 5.5 [pH] Normal 5.0-9.0 [facility] Comment on above: Order Comment: Name Collection Type:: Clean-Voided Midstream Performed By: #### C UU, ADDONUAPLUS #### [address] Protein,Urine Negative Normal Negative [facility] Comment on above: Order Comment: Name Collection Type:: Clean-Voided Midstream Performed By: #### C UU, ADDONUAPLUS #### [facility] [address] [place] [address] RBC,Urine 1-2 Normal 0-4 [facility] Comment on above: Order Comment: Name Collection Type:: Clean-Voided Midstream Performed By: #### C UU, ADDONUAPLUS #### [address] Specificy [place],Urine 1.021 Normal 1.001-1.030 [facility] Comment on above: Order Comment: Name Collection Type:: Clean-Voided Midstream Performed By: #### C UU, ADDONUAPLUS #### [address] Squamous Epithelial Cell,Urine 0-1 Normal 0-2 [facility] Comment on above: Order Comment: Name Collection Type:: Clean-Voided Midstream Performed By: #### C UU, ADDONUAPLUS #### [address] Urobilinogen,Urine Normal Normal Normal [facility] Comment on above: Order Comment: Name Collection Type:: Clean-Voided Midstream Performed By: #### C UU, ADDONUAPLUS #### [address] WBC,Urine 20-49 High 0-4 [facility] Comment on above: Order Comment: Name Collection Type:: Clean-Voided Midstream Performed By: #### C UU, ADDONUAPLUS #### [address] ECG 12 lead ECGon 10-16-2022 ECG 12 lead ECG [facility] [place] [address] Electrocardiograph Report Signed Patient: Rubi Solares MR#: [id number] [birth year] : 1955 Acct:[id number] Age/Sex: 67 / F ADM Date: 10/15/22 Loc: Room: [address] [place] [address] Type: ADM INOo Attending Dr: Roni Blanton MD Ordering Provider: Mary Ocampo APRN Date of Service: 10/16/2212/01/499 ECG/ECG 12 lead ECG: chest pain Copies to: Test Reason : Blood Pressure : / mmHG Vent. Rate : 074 BPM Atrial Rate : 074 BPM P-R Int : 000 ms QRS Dur : 100 ms QT Int : 410 ms P-R-T Axes : 000 -09 008 degrees QTc Int : 455 ms Normal sinus rhythm ventricular trigemeny Abnormal ECG When compared with ECG of 11-JUL-2016 16:26, PVC's noted Confirmed by HONORIO ORTIZ DO ([id number]) on 10/16/2022 12:21:40 PM Referred By: Electronically Signed By:HONORIO ORTIZ DO Transcribed By: MUS Signed By Honorio Ortiz DO 10/16 1221 [facility] echo transthoracicon [facility] echo transthoracic [facility] [place] [address] Echocardiogram Signed Patient: Rubi Solaers MR#: [id number] [birth year] : 1955 Acct:[id number] Age/Sex: 67 / F ADM Date: 10/15/22 Loc: Room: [address] [place] [address] Type: ADM INOo Attending Dr: Roni Blanton MD Ordering Provider: Mary Ocampo APRN Date of Service: 10/16/2212/01/499 [facility] echo transthoracic: chest pain Copies to: GAUTAM Morris MD Height: 63 in Weight: 202 lb Performed By: SILVIANO Magaña BSA: 1.9 m2 BP: 135/72 mmHg HR: 77 Reason For Study: chest pain History: Hyperlipidemia,Pacema ker,Bradycardia, A-Fib., HTN, Right Lobectomy - 1996, Ex-Smoker Interpretation Summary Mild concentric left ventricular hypertrophy. Ejection Fraction = 50-55%. A variety of Doppler measurements indicate normal left ventricular diastolic function. The left atrium appears mildly dilated. There is trace tricuspid regurgitation. Procedure/Quality: A two-dimensional transthoracic echocardiogram with color flow and Doppler was performed. The study was technically suboptimal in quality due to poor acoustic windows . Left Ventricle: The left ventricular size is normal. Mild concentric left ventricular hypertrophy. Ejection Fraction = 50-55%. A variety of Doppler measurements indicate normal left ventricular diastolic function. No left ventricular thrombus or mass is seen. Left Atrium: The left atrium appears mildly dilated. The atrial septum appears normal. Right Atrium: The right atrium appears normal in size. Right Ventricle: The right ventricular size, thickness and function are normal. There is a pacemaker lead in the right ventricle. Aortic Valve: The aortic valve is normal in structure and function. Mitral Valve: The mitral valve is normal. Tricuspid Valve: The tricuspid valve is normal. There is trace tricuspid regurgitation. Pulmonic Valve: The pulmonic valve is not well visualized. Arteries: The aortic root is normal size. The aortic arch was visualized and no abnormalities were seen. Pericardium/Pleura: No pericardial effusion seen. There is no pleural effusion. IVC/Hepatic Viens: Borderline dilated inferior vena cava. Measurements with Normals IVSd: 1.3 cm (0.7-1.1 cm)LVIDd: 4.8 cm (3.7-5.4 cm) LVPWd: 1.2 cm (0.7-1.1 cm)LVIDs: 3.6 cm (2.3-3.6 cm) LA dimension: 4.4 cm(2.3-4.0 cm)Ao root diam: 3.5 cm(2.0-3.6 cm) Doppler with Normals RVSP(TR): 38.5 mmHg (18-35mmHg) MV E max solis: 51.0 cm/sec(0.8-1.3m/s) MV A max solis: 54.0 cm/sec(0.0-0.0m/s) MV E/A: 0.94 (<1.5) MMode/2D Measurements Calculations TAPSE: 2.4 cm FS: 25.0 % Ao root area: 9.6 cm2 LVLd ap4: 8.0 cm RV S Solis: EDV(Teich): EDV(MOD-sp4): 12.9 cm/sec 107.5 ml 73.9 ml ESV(Teich): LVLs ap4: 7.3 cm 54.4 ml ESV(MOD-sp4): EF(Teich): 49.4 % 39.0 ml EF(MOD-sp4): 47.2 % __ SV(MOD-sp4): LAV(MOD-sp4): LA A2 area: 19.0 cm2 34.9 ml 26.4 ml LAV(MOD-sp2): LA A4 area: 12.8 cm2 59.0 ml LA length (vol): 4.8 cm LA vol: 43.0 ml LA vol index: 22.2 ml/m2 Doppler Measurements Calculations MV dec time: 0.23 sec E/E' lat: MV dec slope: TV max P.1 29.0 mmHg E/E' med: 225.0 cm/sec2 9.8 __ TR max solis: 267.0 cm/sec TR max P.5 mmHg RAP systole: 10.0 mmHg Transcribed By: SCV Performed At: 10/16/22 0937 Signed By: Alexys Mckeon MD 10/16/22 1112 Normal [facility] Ketones Auto test strip (U) [Mass/Vol]Ordered By: Ilsa Eagle on 10-16-2022 Ketones (U) [Mass/Vol] Trace Negative [facility] - UrinalysisOrder ed By: Ilsa Eagle on 10-16-2022 Hyaline casts LM Ql (Urine sed) 0-8 [LPF] 0-8 [facility] Lipid Panelon 10-16-2022 Cholesterol [Mass/Vol] 149 mg/dL Normal 140-200 [facility] Comment on above: Result Comment: Chol less than 200 mg/dl low risk Chol 201-239 mg/dl borderline risk Chol 240 mg/dl and greater high risk Performed By: #### H S TROP #### [facility] [address] Cholesterol in HDL [Mass/Vol] 52 mg/dL Normal - [facility] Comment on above: Result Comment: HDL CHOL ATP-III CLASSIFICATION Cardiovascular Risk HDL > or equal to 60 mg/dL LOW HDL < 40 mg/dL HIGH Performed By: #### H S TROP #### [facility] [address] Cholesterol.total/Cholest she in HDL [Mass ratio] 2.9 {ratio} Normal <5.0 [facility] Comment on above: Result Comment: PERF ORMED BY: [place] [address] PATHOLOGIST SEISMOGRAPH OBSERVER RAFAEL TAVERAS M.D. Performed By: #### H S TROP #### [facility] [address] LDL Cholesterol,Calculated 81 mg/dL Normal 0-100 [facility] Comment on above: Result Comment: LDL ATP III CLASSIFICATION LDL less than 100 mg/dL Optimal LDL 100-129 mg/dL Near or above optimal LDL 130-159 mg/dL Borderline high LDL 160-189 mg/dL High LDL greater than 189 mg/dL Very high Performed By: #### H S TROP #### [facility] [address] Triglyceride w/Reflex 80 mg/dL Normal 0-149 [facility] Comment on above: Result Comment: TRIG ATP III CLASSIFICATION TRIG less than 150 mg/dL Normal TRIG 150-199 mg/dL Borderline high TRIG 200-500 mg/dL High TRIG greater than 500 mg/dL Very high Standard traceable to the Center for Disease Conrtrol and Prevention (CDC) test method. Performed By: #### H S TROP #### [facility] [address] VLDL CHOLESTEROL 16 mg/dL Normal [facility] Comment on above: Performed By: #### H S TROP #### [facility] [address] [place] [address] [place] Magnesiumon 10-16-2022 Magnesium [Mass/Vol] 1.8 mg/dL Low 1.9-2.7 [facility] Comment on above: Performed By: #### B MP, CBC, HS TROP, LIPID, MG ####[facility] [id number] [place] [address] [facility] Nitrite Test strip Ql (U)Ord ered By: Ilsa Eagle on 10-16-2022 Nitrite Ql (U) Negative Negative [facility] Protein Auto test strip (U) [Mass/Vol]Ordered By: Ilsa Eagle on 10-16-2022 Protein (U) [Mass/Vol] Negative Negative Fi [facility] Serum or plasma high density lipoprotein (HDL) cholesterol measurementOrdered By: Mary Ocampo on 10-16-2022 Cholesterol in HDL [Mass/Vol] 52 mg/dL 23-92 [facility] Comment on above: HDL CHOL ATP-III CLA SSIFICATION Cardiovascular RiskHDL > or equal to 60 mg/dL LOWHDL < 40 mg/dL HIGH Serum or plasma total choles terol/high density lipoprotein (HDL) cholesterol mass ratOrdered By: Mary Ocampo on 10-16-2022 Cholesterol.total/Cholest she in HDL [Mass ratio] 2.9 {ratio} <5.0 [facility] Specific gravity Auto test s trip (U) [Rel density]Ordered By: Ilsa Eagel on 10-16-2022 Specific gravity (U) [Rel density] 1.021 1.001-1.030 [facility] Squamous epithelial cells de tection in urine sediment by light microscopyOrdered By: Ilsa Eagle on 10-16-2022 Epithelial cells.squamous LM Ql (Urine sed) 0-1 [HPF] 0-2 [facility] Triglyceride [Mass/volume] i n Serum or PlasmaOrdered By: Mary Ocampo on 10-16-2022 Triglyceride [Mass/Vol] 80 mg/dL 0-149 [facility] Comment on above: TRIG ATP III CLASSIF ICATIONTRIG less than 150 mg/dL NormalTRIG 150-199 mg/dL Borderline highTRIG 200-500 mg/dL High TRIG greater than 500 mg/dL Very highStandard traceable to the Center for Disease Conrtrol and Prevention (CDC) test method. Troponin I High Sensitivityo n 10-16-2022 Troponin I High Sensitivity 5.9 pg/mL Normal 0.0-15.0 [facility] Comment on above: Result Comment: PERF ORMED BY: [facility] [address] [place] [id number] PATHOLOGIST SEISMOGRAPH OBSERVER RAFAEL TAVERAS M.D. Performed By: #### B MP, CBC, HS TROP, LIPID, MG ####[facility] [id number] [place] [id number] [facility] Troponin I.cardiac [Mass/vol ume] in Serum or Plasma by Detection limit <= 0.01 ng/Ordered By: Mary Ocampo on 10-16-2022 Troponin I.cardiac DL <= 0.01 ng/mL [Mass/Vol] 5.9 pg/mL 0.0-15.0 [facility] Urine Cultureon 10-16-2022 Bacteria identified Cx Nom (U) ORGANISM: Klebsiella pneumoniae (O:KLEPNE) [place] Count >100,000 Aerobic ABDI Charge (NMIC56) ---- SUSCEPTIBILITY --- ORGANISM: O:KLEPNE ANTIBIOTIC INTERPRETATION ABDI Amikacin S <16 Amoxacillin/K Clavulanate S <8 Ampicillin/Sulbactam S 88/4 Aztreonam S <4 Cefazolin S <2 Cefepime S <2 Ceftazidime S <1 Ceftazidime/Avibactam S <4 Ceftolozane/Tazobacta m S <2 Ceftriaxone S <1 Cefuroxime S <4 Ciprofloxacin S <0.25 Ertapenem S <0.5 Gentamicin S <2 Levofloxacin S <0.5 Meropenem S <1 Meropenem/Vaborbactam S <2 Nitrofurantoin S <32 Piperacillin/Tazobact am S <8 Tetracycline R >8 Tigecycline S <2 Tobramycin S <2 Trimethoprim/Sulfamet hoxazole S <0.5 S = SUSCEPTIBLE I = INTERMEDIATE R = RESISTANT BLANK = DATA NOT AVAILABLE, OR DRUG NOT ADVISABLE OR TESTED R* = RESISTANCE DUE TO EXTENDED SPECTRUM BETA-LACTAMASES ESBL = EXTENDED SPECTRUM BETA-LACTAMASE TFG = THYMIDINE-DEPENDENT STRAIN RAKESH = BETA-LACTAMASE POSITIVE IB = INDUCIBLE BETA-LACTAMASE. APPEARS IN PLACE OF 'S' WITH SPECIES KNOWN TO POSSESS INDUCIBLE BETA-LACTAMASES. POTENTIALLY THEY MAY BECOME RESISTANT TO ALL B-LACTAM DRUGS. PERFORMED BY: [place] [address] PATHOLOGIST SEISMOGRAPH OBSERVER RAFAEL TAVERAS M.D. Normal [facility] Comment on above: Performed By: #### C UU, ADDONUAPLUS #### [address] [address] [facility] Urine bacteria detection by automated methodOrdered By: Ilsa Eagle on 10-16-2022 Bacteria Auto Ql (U) 4+ None Seen [facility] Urine clarity by refractomet ry automatedOrdered By: Ilsa Eagle on 10-16-2022 Clarity Refractometry automated (U) Cloudy Clear [facility] Urine culture routineOrdered By: Ilsa Eagle on 10-16-2022 Bacteria identified Cx Nom (U) Klebsiella pneumoniae [facility] Urine glucose measurement by automated test strip (mass/volume)Ordered By: Ilsa Eagle on 10-16-2022 Glucose Auto test strip (U) [Mass/Vol] Normal mg/dL Normal [facility] Urine hemoglobin detection b y automated test stripOrdered By: Ilsa Eagle on 10-16-2022 Hemoglobin Auto test strip Ql (U) Negative Negative [facility] Urine leukocyte esterase det ection by automated test stripOrdered By: Ilsa Eagle on 10-16-2022 Leukocyte esterase Auto test strip Ql (U) 3+ Negative [facility] Urobilinogen Auto test strip (U) [Mass/Vol]Ordered By: Ilsa Eagle on 10-16-2022 Urobilinogen (U) [Mass/Vol] Normal mg/dL Normal [facility] pH Auto test strip (U)Ordere d By: Ilsa Eagle on 10-16-2022 pH (U) 5.5 [pH] 5.0-9.0 [facility] Troponin I High Sensitivityo n 10-15-2022 Troponin I High Sensitivity 6.3 pg/mL Normal 0.0-15.0 [facility] Comment on above: Result Comment: PERF ORMED BY: [address] [address] PATHOLOGIST SEISMOGRAPH OBSERVER RAFAEL TAVERAS M.D. Performed By: #### H S TROP #### [facility] [address] CBC AUTO DIFFon 06-11-2022 BASO # 0.0 103/ul Normal 0.0-0.1 [facility] Comment on above: Performed By: #### C BC ####[facility] [address] [place] [address]Dr. Adam Capellan Basophils/100 WBC (Bld) 0.6 % Normal 0.2-2.0 [facility] Comment on above: Performed By: #### C BC ####[facility] [address] [place], [place] [address]Dr. Adam Capellan EO # 0.1 103/ul Normal 0.0-0.7 [facility] Comment on above: Performed By: #### C BC ####[facility] Ifzim[address]acb[address] [place], [place] [address]Dr. Adam Capellan Eosinophils/100 WBC (Bld) 1.7 % Normal 0.9-7.0 [facility] Comment on above: Performed By: #### C BC ####[facility] Qyrnkw[address]dl[address] [place], [place] [address]Dr. Adam Capellan Erythrocyte distribution width (RBC) [Ratio] 14.1 % Normal 11.0-15.0 [facility] Comment on above: Performed By: #### C BC ####[facility] Ngofubjvsn[address] [place], [place] [address]Dr. Adam Capellan Hematocrit (Bld) [Volume fraction] 38.8 % Normal 36.0-48.0 [facility] Comment on above: Performed By: #### C BC ####[facility] Irgwtpeier[address] [place], [place] [address]Dr. Adam Capellan Hemoglobin (Bld) [Mass/Vol] 12.2 g/dL Normal 12.0-16.0 [facility] Comment on above: Performed By: #### C BC ####[facility] Gszatqxrgg[address] [place], [place] [address]Dr. Adam Capellan IG # 0.01 10e3/ul Normal 0.00-0.03 [facility] Comment on above: Performed By: #### C BC ####[facility] [address]qs[address] [place] [address]DrNacho Adam Timi IG % 0.2 % Normal 0.0-0.5 [facility] Comment on above: Performed By: #### C BC ####[facility] Y[address] [place] [address]DrNacho Adam Timi LYMPH # 1.1 103/ul Critically low 1.2-3.8 [facility] Comment on above: Performed By: #### C BC ####[facility] [address] [place] [address]DrNacho Shannonvenkata Capellan Lymphocytes/100 WBC (Bld) 21.4 % Normal 20.5-60.0 [facility] Comment on above: Performed By: #### C BC ####[facility] Ps[address]ecqi[address] [place], [place] [address]DrNacho Shannonvenkata Capellan MANUAL DIFF REQ NO Normal [facility] Comment on above: Performed By: #### C BC ####[facility] Qu[address]fy[address] [place], [place] [address]DrNacho Adam Timi MCH (RBC) [Entitic mass] 28.6 pg Normal 26.7-34.0 [facility] Comment on above: Performed By: #### C BC ####[facility] V[address]ylfsm[address] [place], [place] [address]DrNacho Adam Timi MCHC (RBC) [Mass/Vol] 31.4 g/dL Normal 29.9-35.2 [facility] Comment on above: Performed By: #### C BC ####[facility] Pucxxiagmi[address] [place], [place] [address]DrNacho Shannonvenkata Capellan MCV (RBC) [Entitic vol] 90.9 fL Normal 81.0-99.0 [facility] Comment on above: Performed By: #### C BC ####[facility] Izomq[address]niqp[address] [place], [place] [address]DrNacho Capellan MONO # 0.4 103/ul Normal 0.3-0.8 [facility] Comment on above: Performed By: #### C BC ####[facility] Q[address]oz[address] [place] [address]Dr. Adam Capellan Monocytes/100 WBC (Bld) 6.8 % Normal 1.7-12.0 [facility] Comment on above: Performed By: #### C BC ####[facility] [address] [place] [address]Dr. Adam Capellan NEUT # 3.6 103/ul Normal 1.4-6.5 [facility] Comment on above: Performed By: #### C BC ####[facility] Re[address]co[address] [place] [address]Dr. Adam Capellan Neutrophils/100 WBC (Bld) 69.3 % Normal 43.0-75.0 [facility] Comment on above: Performed By: #### C BC ####[facility] Skmwkkpcga[address] [place], [place] [address]Dr. Adam Capellan Platelet mean volume (Bld) [Entitic vol] 10.0 fL Normal 9.5-13.5 [facility] Comment on above: Performed By: #### C BC ####[facility] Qycqakeysl[address] [place], [place] [address]Dr. Adam Capellan PLT 208 103/ul Normal 150-450 [facility] Comment on above: Performed By: #### C BC ####[facility] Ihyrthgapn[address] [place], [place] [address]Dr. Adam Capellan RBC 4.27 106/ul Normal 4.20-5.40 [facility] Comment on above: Performed By: #### C BC ####[facility] L[address]nsqomc[address] [place], [place] [address]Dr. Adam Capellan WBC 5.2 103/ul Normal 4.0-11.0 [facility] Comment on above: Performed By: #### C BC ####[facility] [address]symcat[address] [place] [address]Dr. Adam Capellan FERRITINon 06-11-2022 Ferritin [Mass/Vol] 177.0 ng/mL Normal 8.0-252.0 [facility] Comment on above: Performed By: #### F ERR, VITB12, VITAD, FETIBC ####[facility] [address] [place] [address]Dr. Adam Capellan IRON AND TIBCon 06-11-2022 % SATURATION 26.1 % Normal [facility] Comment on above: Performed By: #### F ERR, VITB12, VITAD, FETIBC ####[facility] [address] [place] [address]Dr. Adam Capellan Iron [Mass/Vol] 57.0 ug/dL Normal 50.0-170.0 [facility] Comment on above: Performed By: #### F ERR, VITB12, VITAD, FETIBC ####[facility] [address] [place] [address]Dr. Adam Capellan TIBC DIRECT 218.0 ug/dL Critically low 250.0-450.0 [facility] Comment on above: Performed By: #### F ERR, VITB12, VITAD, FETIBC ####[facility] X[address]qvedq[address] [place] [address]Dr. Adam Capellan LIPID PROFILEon 06-11-2022 CHOL-HDL RATIO NORM SEE BELOW Normal [facility] Comment on above: Result Comment: 3.3 - 4.4 LOW RISK 4.4 - 7.1 AVERAGE RISK 7.1 - 11.0 MODERATE RISK >11.0 HIGH RISK Performed By: #### L IPID, CMP ####[facility] Jf[address]xxmdxd[address] [place] [address]Dr. Adam Capellan Cholesterol [Mass/Vol] 175 mg/dL Normal <=200 [facility] Comment on above: Performed By: #### L IPID, CMP ####[facility] Pycp[address]zh[address] [place] [address]Dr. Adam Capellan Cholesterol in HDL [Mass/Vol] 76 mg/dL Critically high 40-60 [facility] Comment on above: Performed By: #### L IPID, CMP ####[facility] Cqnpf[address]fw[address] [place] [address]Dr. Adam Capellan Cholesterol in LDL [Mass/Vol] 86.4 mg/dL Normal [facility] Comment on above: Performed By: #### L IPID, CMP ####[facility] [address]bl[address] [place] [id number]. Adam Timi Cholesterol.total/Cholest she in HDL [Mass ratio] 2.3 {ratio} Normal [facility] Comment on above: Performed By: #### L IPID, CMP ####[facility] [address] [place] [id number]. Adam Capellan HDL NORMAL > or = 60 mg/dl - LO W CARDIOVASCULAR RISK <40 mg/dl - HIGH CARDIOVASCULAR RISK Normal [facility] Comment on above: Performed By: #### L IPID, CMP ####[facility] E[address] [place] [address]Dr. Adam Capellan LDL CALC NORMAL SEE BELOW Normal [facility] Comment on above: Result Comment: <100 mg/dl OPTIMAL 100 - 129 mg/dl NEAR OR ABOVE OPTIMAL 130 - 159 mg/dl BORDERLINE HIGH 160 - 189 mg/dl HIGH >190 mg/dl VERY HIGH Performed By: #### L IPID, CMP ####[facility] Pctldfppkn[address] [place], [place] [address]Dr. Adam Timi Triglyceride [Mass/Vol] 63 mg/dL Normal <=[address] [facility] Comment on above: Performed By: #### L IPID, CMP ####[facility] Jsl[address]ucwxr[address] [place] [address]Dr. Adam Timi VLDL CALC 12.6 mg/dL Normal [facility] Comment on above: Performed By: #### L IPID, CMP ####[facility] S[address]gozxi[address] [place] [address]Dr. Adam Capellan MICROALB CREAT RATIO RANDOMo n 06-11-2022 mALB <1.3 Normal <=30.0 [facility] Comment on above: Performed By: #### M CRR ####[facility] W[address]im[address]cp[address] [place] [address]Dr. Adam Capellan URINE CREAT 105.73 mg/dL Normal 20.00-300.0 0 [facility] Comment on above: Performed By: #### M CRR ####[facility] [address]ib[address] [place] [address]Dr. Adam Capellan PROF 14(COMP METB)on 023 Albumin [Mass/Vol] 3.5 g/dL Normal 3.4-5.0 [facility] Comment on above: Performed By: #### L IPID, CMP ####[facility] Mardfbmrig[address] [place], [place] [address]Dr. Adam Capellan Albumin/Globulin [Mass ratio] 1.3 {ratio} Normal [facility] Comment on above: Performed By: #### L IPID, CMP ####[facility] Pvtxdrglxs[address] [place], [place] [address]Dr. Adam Capellan ALP [Catalytic activity/Vol] 73 U/L Normal 46-116 [facility] Comment on above: Performed By: #### L IPID, CMP ####[facility] Fsbubtdxpy[address] [place], [place] [address]Dr. Adam Capellan ALT [Catalytic activity/Vol] 15 U/L Normal 14-59 [facility] Comment on above: Performed By: #### L IPID, CMP ####[facility] Iordcawrdv[address] [place], [place] [address]Dr. Adam Capellan Anion gap [Moles/Vol] 11.2 mmol/L Normal [facility] Comment on above: Performed By: #### L IPID, CMP ####[facility] Msrmwhqcgj[address] [place], [place] [address]Dr. Adam Capellan AST [Catalytic activity/Vol] 17 U/L Normal 15-37 [facility] Comment on above: Performed By: #### L IPID, CMP ####[facility] Imqenmgxfy[address] [place], [place] [address]Dr. Adam Capellan Bilirubin [Mass/Vol] 0.5 mg/dL Normal 0.2-1.0 [facility] Comment on above: Performed By: #### L IPID, CMP ####[facility] S[address]vuitusw[address] [place] [address]Dr. Adam Capellan Calcium [Mass/Vol] 9.2 mg/dL Normal 8.5-10.1 [facility] Comment on above: Performed By: #### L IPID, CMP ####[facility] Aeybratcnu64[address] [place], [place] [address]Dr. Adam Capellan Chloride [Moles/Vol] 108 mmol/L Critically high 98-107 [facility] Comment on above: Performed By: #### L IPID, CMP ####[facility] Sbjioieexr[address] [place], [place] [address]Dr. Adam Capellan CO2 [Moles/Vol] 27.9 mmol/L Normal 21.0-32.0 [facility] Comment on above: Performed By: #### L IPID, CMP ####[facility] Ipnctnsfsb[address] [place], [place] [address]Dr. Adam Capellan Creatinine [Mass/Vol] 0.90 mg/dL Normal 0.55-1.02 [facility] Comment on above: Performed By: #### L IPID, CMP ####[facility] Ufbztymblp[address] [place], [place] [address]Dr. Adam Capellan EGFR-AF SLOVAK >60 Normal >=60 [facility] Comment on above: Performed By: #### L IPID, CMP ####[facility] Swhanymaki[address] [place], [place] [address]Dr. Adam Capellan EGFR-NON AF SLOVAK >60 Normal >=60 [facility] Comment on above: Performed By: #### L IPID, CMP ####[facility] Sjmblhhrbn[address] [place], [place] [address]Dr. Adam Capellan Globulin (S) [Mass/Vol] 2.6 g/dL Normal [facility] Comment on above: Performed By: #### L IPID, CMP ####[facility] Ayarwcfnjj[address] [place], [place] [address]Dr. Adam Capellan Glucose [Mass/Vol] 114 mg/dL Critically high 74-106 [facility] Comment on above: Performed By: #### L IPID, CMP ####[facility] Vdwejxltpb[address] [place] [address]Dr. Adam Capellan Potassium [Moles/Vol] 4.1 mmol/L Normal 3.5-5.1 [facility] Comment on above: Performed By: #### L IPID, CMP ####[facility] R[address]rwbo[address] [place] [address]Dr. Adam Capellan Protein [Mass/Vol] 6.1 g/dL Critically low 6.4-8.2 [facility] Comment on above: Performed By: #### L IPID, CMP ####[facility] Jvbsttzrtk[address] [place], [place] [address]Dr. Adam Capellan Sodium [Moles/Vol] 143 mmol/L Normal 136-145 [facility] Comment on above: Performed By: #### L IPID, CMP ####[facility] Xgxtlemqtq[address] [place], [place] [address]Dr. Adam Capellan Urea nitrogen [Mass/Vol] 16.0 mg/dL Normal 7.0-18.0 [facility] Comment on above: Performed By: #### L IPID, CMP ####[facility] Diuumwbhab45[address] [place], [place] [address]Dr. Adam Capellan Urea nitrogen/Creatinine [Mass ratio] 17.8 mg/mg Normal [facility] Comment on above: Performed By: #### L IPID, CMP ####[facility] Fmddlmbjmb27[address] [place], [place] [address]Dr. Adam Capellan UA RANDOMon 06-11-2022 Bilirubin Ql (U) Negative Normal NEGATIVE [facility] Comment on above: Performed By: #### U A ####[facility] Kaeelgqxht[address] [place], [place] [address]Dr. Adam Capellan Clarity (U) CLEAR Normal CLEAR [facility] Comment on above: Performed By: #### U A ####[facility] Ex[address] [place] [address]Dr. Adam Capellan Color (U) LT. YELLOW Normal YELLOW [facility] Comment on above: Performed By: #### U A ####[facility] J[address]oeotws[address] [place] [address]Dr. Adam Capellan Glucose Ql (U) Negative Normal NEGATIVE [facility] [place] [facility] Comment on above: Performed By: #### U A ####[facility] Svofeatycp[address] [place], [place] [address]Dr. Adam Capellan Hemoglobin Ql (U) TRACE-INTACT Abnormal NEGATIVE [facility] Comment on above: Performed By: #### U A ####[facility] Iddesautbh[address] [place], [place] [address]Dr. Adam Capellan Ketones Ql (U) Negative Normal NEGATIVE [facility] [place] [facility] Comment on above: Performed By: #### U A ####[facility] Msgbeavavn[address] [place], [place] [address]Dr. Adam Capellan LEUKOCYTES SMALL Abnormal NEGATIVE [facility] Comment on above: Performed By: #### U A ####[facility] Acopcgajha[address] [place], [place] [address]Dr. Adam Capellan Nitrite Ql (U) Negative Normal NEGATIVE [facility] [place] [facility] Comment on above: Performed By: #### U A ####[facility] Bstyxlwxdx[address] [place], [place] [address]Dr. Adam Capellan pH (U) 6.0 [pH] Normal 5-9 [facility] Comment on above: Performed By: #### U A ####[facility] [address]wknej[address] [place], [place] [address]Dr. Adam Capellan SPEC GRAVITY 1.020 Normal 1.005-<=1.0 25 [facility] Comment on above: Performed By: #### U A ####[facility] M[address]undcrql[address] [place], [place] [address]Dr. Adam Capellan UA PROTEIN Negative Normal NEGATIVE/ TRACE [facility] Comment on above: Performed By: #### U A ####[facility] H[address]ser[address]wdu[address] [place], [place] [address]Dr. Adam Capellan Urobilinogen Qn (U) 0.2 {Wilder'U}/dL Normal 0.2 - 1. 0 [facility] Comment on above: Performed By: #### U A ####[facility] [address] [place], [place] [address]Kw. Adam Capellan VITAMIN B12on 06-11-2022 Cobalamin (Vitamin B12) [Mass/Vol] 448.0 pg/mL Normal 193.0-986.0 [facility] Comment on above: Performed By: #### F ERR, VITB12, VITAD, FETIBC ####[facility] [address] [place], [place] [address]Wv. Adam Timi VITAMIN D 25 OHon 06-11-2022 VIT D 25-OH 101.4 ng/mL Normal [facility] Comment on above: Performed By: #### F ERR, VITB12, VITAD, FETIBC ####[facility] [address] [place], [place] [address]Qy. Adam Capellan VIT D RANGES SEE BELOW Normal [facility] Comment on above: Result Comment: <20 ng/mL Vit D deficient 20 - <30 ng/mL Vit D insufficient 30 - 100 ng/mL Vit D sufficient >100 ng/mL Potential Toxicity Performed By: #### F ERR, VITB12, VITAD, FETIBC ####[facility] [address]nx[address] [place], [place] [address]Om. Adam Capellan Office Visit (Cardiology)on 03-17-2022 Follow-up visit Diagnoses/Problems Assessed Cardiac pacemaker in situ (V45.01) (Z95.0) Sinus node dysfunction (427.81) (I49.5) Paroxysmal atrial fibrillation (427.31) (I48.0) Essential hypertension (401.9) (I10) skilled nursing current use of anticoagulant therapy (V58.61) (Z79.01) Former smoker (V15.82) (Z87.891) Class 2 obesity with body mass index (BMI) of 36.0 to 36.9 in adult (278.00,V85.36) (E66.9,Z68.36) Orders Class 2 obesity with body mass index (BMI) of 36.0 to 36.9 in adult, SocHx: Former smoker Healthy Weight Tips; Status:Complete - Retrospective Authorization; Done: [id number] Some eating tips that can help you lose weight.; Status:Complete - Retrospective Authorization; Done: [id number] SocHx: Former smoker Tobacco Use Screening; Status:Complete; Done: [id number] Patient Instructions Please bring all medicines, vitamins, and herbal supplements with you when you come to the office. Prescriptions will not be filled unless you are compliant with your follow up appointments or have a follow up appointment scheduled as per instruction of your physician. Refills should be requested at the time of your visit. Fall prevention education given labs as ordered per PCP Pacemaker/ Defibrillator routine follow-up Follow up in 9 months Chief Complaint RUBI SOLARES is being seen for a 9 month follow-up of. Patient is in the office for follow-up for the problems noted below. Since her last visit 9 months ago there has not been any cardiac events of noticed. Recent pacemaker check from last week was on target with no significant atrial fibrillation load. She is on Xarelto 20 mg daily for that. Her pacemaker function is appropriate. Her weight remains above target something that she is aware of and try to work on it. 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 Her physical examination is normal except for obesity. Her lab data from PCP were reviewed with her and there was no areas of concern noted. Her medical therapy will be left unchanged. Her follow-up will be left as it is every 9 months. ASSESSMENT AND PLAN: 1. History of paroxysmal atrial fibrillation, asymptomatic. Currently anticoagulated with Xarelto. This will continue. The load of atrial fibrillation is currently very low. 2. Sinus node dysfunction with a pacemaker in place pacemaker evaluations have been reviewed. 3. Cardiac catheterization in 2011 in 2017 revealed normal coronary arteries 4. High-risk medication with anticoagulation without any bleeds 5. Hypertension, currently under control on losartan. 6. Obesity, encouraged the patient cut back calorie intake and exercise on more regular basis. Davin Hobbs MD, [facility] Surgical History Problems History of Appendectomy History of Cardiac event recorder insertion Patient activated cardiac event recorder implementation History of Colonoscopy History of Hemorrhoidectomy History of Hip replacement History of Hysterectomy History of Knee replacement History of Lung surgery History of Stomach surgery Gastric surgery for morbid obesity gastric stapling History of Tonsillectomy Past Medical History Problems History of anemia (V12.3) (Z86.2) History of arthritis (V13.4) (Z87.39) History of bladder problems (V13.09) (Z87.448) History of bronchitis (V12.69) (Z87.09) History of chest pain (V13.89) (Z87.898) History of hypertension (V12.59) (Z86.79) History of lung disease (V12.60) (Z87.09) History of Mixed hearing loss, 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 Myrbetriq 25 MG Oral Tablet Extended Release 24 HourTake 1 tablet daily traMADol HCl - 50 MG Oral TabletTAKE 1-2 TABLET EVERY 12 HOURS NEEDED. Vitamin B-12 1000 MCG Sublingual Tablet SublingualPLACE 1 TABLET Daily Vitamin D (Ergocalciferol) 1.25 MG (11353 UT) Oral CapsuleTAKE 1 CAPSULE WEEKLY. Vitamin D3 125 MCG (5000 UT) Oral CapsuleTAKE 1 CAPSULE Daily Xarelto 20 MG Oral TabletTAKE 1 TABLET BY MOUTH EVERY DAY Patient did not bring medication list or bottles. Updated verbally with patient Allergies Medication Percocet TABS Recorded By: Ghazal Rivero; 11/13/2015 10:46:15 AM NonMedication No Known Environmental Allergies Recorded By: Ghazal Rivero; 11/13/2015 10:46:15 AM No Known Food Allergies Recorded By: Ghazal Rivero; 11/13/2015 10:46:15 AM Social History Problems Former smoker (V15.82) (Z87.891) No alcohol use No caffeine use No illicit drug use Review of Systems Constitutional: not feeling tired. Cardiovascular: no intermittent leg claudication and as noted in HPI. Respiratory: no coug (more content not included)... Normal [employer] Tobacco Screening.on 022 Adult depression screening assessment No -[facility] [place] [address] DO Work Phone: Fall risk assessment b) One or more fall s in the last year [facility] [place] [address] DO Work Phone: Tobacco use status [facility]PH[facility] b) No M [facility] [employer] [place] [address] DO Work Phone: XR FINGER MIN 2 VIEWSon 11- XR FINGER MIN 2 VIEWS EXAM: XR FINGER TX N 2 VIEWS HISTORY: Pain in finger of left hand COMPARISON: None. TECHNIQUE: 3 views of the left fourth finger are performed. FINDINGS: There is mild soft tissue irregularity to the distal tip of the ring finger. No acute fracture is seen. There is deformity to the distal third phalanx, suggesting remote trauma. There are degenerative changes in the visualized second and third metacarpal phalangeal joints. IMPRESSION: Soft tissue injury to the distal aspect of the ring finger. No underlying acute bony abnormality. Electronically authenticated by: JASON STRICKLAND Date: 2022-03-07 17:40 Normal [facility] VC CONSULT FOLLOWUPon 2021 VC CONSULT FOLLOWUP Patient: RUBI SOLARES Exam Date: 01/22/2022 : 1955 Gender:F Ordering : DR CHRISTINA PEÑA M.D. Admission #: [id number] Family : Order #: [id number] CLICK HERE TO VIEW EXAM RADIOLOGY REPORT PROCEDURE: VEIN CENTER CONSULTATION FOLLOWUP VEIN CENTER - OFFICE VISIT FOLLOW UP COMPARISON: VC CONSULT FOLLOWUP, 01/11/2022. VC CONSULT FOLLOWUP, 12/08/2021. PROGRESS NOTES: The patient reports mild discomfort following micro foam chemical ablation of the left leg. The patient did not require oral analgesics. The patient did wear her compression stocking. The patient did have concern today about her to insurance deductible/copay, I referred her to the billing department. The patient has followed our recommendations to walk 20-30 minutes once or twice per day since the procedure. Physical exam demonstrates no areas of erythema warmth or ulceration. Evidence of cellulitis or thrombophlebitis. Scattered reticular and spider veins. Review of the ultrasound performed the same day demonstrates occlusive thrombus extending throughout the treated incompetent left leg varicose veins. No significant residual varicose veins on the left. The patient expressed a desire to proceed with treatment of incompetent right leg varicose veins micro foam chemical ablation. IMPRESSION: 1. Successful ablation of left leg incompetent varicose vein 2. Persistent incompetent right leg varicose veins PLAN: Micro foam chemical ablation right leg Nurse notes, history and physical were reviewed and confirmed, see attached forms. The nurse was present throughout the physical exam and consultation Dictated by: Chirstina Peña MD on 01/22/2022 at 11:20 Approved by: Christina Peña MD on 01/22/2022 at 11:26 Normal [facility] VC EXT VENOUS LT LIMITEDon 1 VC EXT VENOUS LT LIMITED Patient: RUBI SOLARES Exam Date: 01/22/2022 : 1955 Gender:F Ordering : DR CHRISTINA PEÑA M.D. Admission #: [id number] Family : Order #: [id number] CLICK HERE TO VIEW EXAM RADIOLOGY REPORT PROCEDURE: VEIN CENTER EXTREMITY VENOUS LEFT LIMITED COMPARISON: VC EXT VENOUS LT LIMITED, 01/11/2022. VC EXT VENOUS LT LIMITED, 12/08/2021. INDICATIONS: Phlebitis of superficial veins of lower extremity I80.02 TECHNIQUE: Lower extremity chase scale and Duplex Doppler evaluation of the deep venous system from the inguinal ligament through the calf veins. FINDINGS: REGION: Left lower extremity. THROMBI: Negative for DVT. Varithena induced thrombus visualized at dist/med calf and dist/ant thigh. COMPRESSIBILITY: Non-compressible segments. FLOW: Areas of no flow. OTHER: Patent varicose vein dist med thigh 2.7mm with 0s reflux. Patent varicose vein dist/ant calf 2.7mm with 0.4s reflux. *Exam performed in accordance with [facility] practice guidelines- Peripheral venous ultrasound, July 05, 2009. CONCLUSION: Post ablation occlusion of left leg incompetent treated varicose veins. No deep vein thrombus Dictated by: Christina Peña MD on 01/22/2022 at 11:19 Approved by: Christina Peña MD on 01/22/2022 at 11:19 Normal [facility] VC INJ FOAM SCLERO W US MLTI on 01-12-2022 VC INJ FOAM SCLERO W US MLTI Patient: RUBI SOLARES Exam Date: 01/12/2022 : 1955 Gender:F Ordering : DR CHRISTINA PEÑA M.D. Admission #: [id number] Family : Order #: [id number] CLICK HERE TO VIEW EXAM RADIOLOGY REPORT PROCEDURE: VEIN CENTER INJECTION FOAM SCLEROSING SOLUTION WITH ULTRASOUND MULTIPLE VEINS COMPARISON: VC COMP CONSULTATION, 10/05/2021. Pre-operative Diagnosis: CEAP class C3 venous insufficiency with pain, tenderness, edema and incompetent left great saphenous vein and branch saphenous tributaries, chronic venous insufficiency left leg secondary to venous incompetence Post-operative Diagnosis: CEAP class C3 venous insufficiency with pain, tenderness, edema and incompetent left great saphenous vein and branch saphenous tributaries, chronic venous insufficiency left leg secondary to venous incompetence Procedure Performed: 1. Ultrasound-guided microfoam chemical ablation with Varithena(r) 2. Intraoperative ultrasound guidance Physician: Christina Peña M.D. Anesthesia: None Indications for Procedure: 66-year-old female who presents with a long history of bilateral lower extremity pain swelling leg cramps and varicose veins. The patient failed conservative medical therapy including medical compression stockings, exercise and analgesics. Prior procedures include venous laser ablation. Multiple incompetent varicosities of the left leg. Duplex scan showed reflux and enlarged diameters up to 4 mm. The patient underwent informed consent including management options where the complications of infection, bleeding, pain, and skin injury were discussed. Particular attention was spent discussing thrombus extension and deep vein thrombosis as well as the possibility of pulmonary embolus and treatment with oral or injectable blood thinners. Procedure: The patient walked to the procedure room. All applicable staff donned appropriate apparel. A procedure timeout was performed to confirm correct patient, correct extremity, correct procedure, and correct room set-up including presence of all applicable supplies, devices, and drugs. A duplex ultrasound, performed by myself confirmed the location and incompetence of left leg varicose veins and their course marked on the skin together with the dilated tributaries. The extent of treatment of the vein and the associated varicosities was determined through ultrasound mapping. The patient was placed on the operating room table. The limb was prepped. The skin was punctured with a butterfly needle through the skin with the venous access needle and advanced under ultrasound guidance. The target limb was positioned at 45 degrees of elevation in relation to the torso utilizing a foam pad. The Varithena(r) canister was previously activated and the canister was primed and purged as required in the instructions for use. The following injections were made: 4 mL aliquot of Varithena(r) was drawn into a sterile syringe. Injection into a 4 mm varicose vein distal medial lower leg, this treated a side branch saphenous tributary as well as the distal untreated great saphenous vein. 5 mL aliquot of Varithena(r) was drawn into a sterile syringe. Injection into a 4 mm varicose vein distal anteromedial left thigh. This was a branch of the great saphenous vein inserting at the level of the upper thigh Varithena(r) was slowly administered at 0.5-1.0 cc/second with close observation by ultrasound of its course in the distal GSV and injected veins. A total volume of95 mL of Varithena(r) was used. During administration of Varithena(r), the patient was asked to dorsiflex the ankle to limit flow of Varithena(r) into perforating veins. Once appropriate spasm had been confirmed in the treated veins, the vascular catheter was removed from the leg and light pressure was applied over the puncture site for hemostasis The common femoral and deep superficial veins were then evaluated for flow and compressibility prior to dressing placement. The lower extremity was kept elevated at 45 degrees above the horizontal and cording material was applied over the saphenous segments and tributaries to allow for eccentric compression over the target vessels including the targeted saphenous vein(s). A multilayer dressing was applied consisting of foam pads, coban and thigh-high 20-30 mm Hg compression elastic support hose were placed on the patient. The leg was lowered only after compression had been applied and the patient was immediately ambulatory. The patient ambulated 10 minutes under supervision and was without apparent concerns at time of release Post-care instructions include advising patient to keep post-treatment bandages in place and dry for 48 hours, avoid extended periods of inactivity, avoid heavy exercise for one week, wear compression stockings on the treated leg continuously for two weeks, to walk daily for 10 minutes over the next month. The patient (more content not included)... Normal [facility] VC CONSULT FOLLOWUPon 2021 VC CONSULT FOLLOWUP Patient: RUBI SOLARES Exam Date: 01/11/2022 : 1955 Gender:F Ordering : DR CHRISTINA PEÑA M.D. Admission #: [id number] Family : Order #: [id number] CLICK HERE TO VIEW EXAM RADIOLOGY REPORT PROCEDURE: VEIN CENTER CONSULTATION FOLLOWUP VEIN CENTER - OFFICE VISIT FOLLOW UP COMPARISON: VC CONSULT FOLLOWUP, 12/08/2021. VC CONSULT FOLLOWUP, 11/24/2021. PROGRESS NOTES: The patient reports no significant problems following intravenous laser ablation of the left anterior accessory saphenous vein the patient did not require oral analgesics. The patient did wear her compression stocking as directed. The patient has followed our recommendations to walk 20-30 minutes once or twice per day since the procedure. The patient reports significant improvement in her initial presenting symptoms with no leg cramping currently with prolonged standing over the course of the day. Physical exam demonstrates a 15 cm area of bruising along the anterior mid left thigh related to tumescence injection. No areas of erythema or warmth. The thrombosed anterior accessory saphenous vein cannot be palpated. Multiple patent varicose veins are observed. Review of the ultrasound performed the same day demonstrates occlusive thrombus extending throughout the treated left anterior accessory saphenous vein with heat induced thrombus 2.5 cm from the saphenofemoral junction. Residual incompetent varicose veins are observed. The patient expressed a desire to proceed with treatment of incompetent varicose veins with micro foam chemical ablation. IMPRESSION: 1. Successful ablation of the left anterior saphenous vein 2. Persistent bilateral incompetent varicose veins PLAN: Micro foam chemical ablation left leg Nurse notes, history and physical were reviewed and confirmed, see attached forms. The nurse was present throughout the physical exam and consultation Dictated by: Christina Peña MD on 01/11/2022 at 08:32 Approved by: Christina Peña MD on 01/11/2022 at 08:45 Normal [facility] VC EXT VENOUS LT LIMITEDon 1 VC EXT VENOUS LT LIMITED Patient: RUBI SOLARES Exam Date: 01/11/2022 : 1955 Gender:F Ordering : DR CHRISTINA PEÑA M.D. Admission #: [id number] Family : Order #: [id number] CLICK HERE TO VIEW EXAM RADIOLOGY REPORT PROCEDURE: VEIN CENTER EXTREMITY VENOUS LEFT LIMITED COMPARISON: VC EXT VENOUS LT LIMITED, 12/08/2021. INDICATIONS: Phlebitis and thrombophlebitis of superficial veins of left lower extremity I80.02 TECHNIQUE: Lower extremity chase scale and Duplex Doppler evaluation of the deep venous system from the inguinal ligament through the calf veins. FINDINGS: REGION: Left lower extremity. THROMBI: Negative for DVT. Heat induced thrombus in left AASV 2.5 cm from SFJ and extends to mid thigh at area of insert. COMPRESSIBILITY: Noncompressibility corresponding to thrombus FLOW: Absent flow corresponding to thrombus *Exam performed in accordance with [facility] practice guidelines- Peripheral venous ultrasound, July 05, 2009. CONCLUSION: Post ablation occlusion of the proximal left anterior accessory saphenous vein with heat induced thrombus 2.5 cm from the saphenofemoral junction Dictated by: Christina Peña MD on 01/11/2022 at 08:25 Approved by: Christina Peña MD on 01/11/2022 at 08:27 Normal [facility] VC ENDOVENOUS ABL 1ST V LTon 01-06-2022 VC ENDOVENOUS ABL 1ST V LT Patient: RUBI SOLARES Exam Date: 01/06/2022 : 1955 Gender:F Ordering : DR CHRISTINA PEÑA M.D. Admission #: [id number] Family : Order #: [id number] CLICK HERE TO VIEW EXAM RADIOLOGY REPORT PROCEDURE: VEIN CENTER ENDOVENOUS ABLATION FIRST VEIN LEFT ANTERIOR ACCESSORY SAPHENOUS VEIN COMPARISON: VC VENOUS REFLUX NAKUL LMT, 10/05/2021. VC ENDOVENOUS ABL 1ST V LT, 11/30/2021. INDICATIONS: Pain co-occurrent and due to varicose veins of bilateral legs I83.813 OPERATIVE REPORT: The risks and benefits of the procedure had been previously discussed, and were rediscussed at length. Informed written consent was obtained by and Larry Hernandez assisted. Time out procedure was performed. The left lower extremity was prepared and draped in the usual sterile fashion to allow knee flexion in the sterile field. Duplex ultrasound probe was draped in a sterile cover, sterile transmission gel was used. Venous mapping was performed with the areas of dilation and large tributaries marked. The total length was 11 cm from the entry mid thigh to 3 cm below the saphenofemoral junction. The diameter of the greater saphenous vein ranged from 4-8 mm. A 30 gauge needle and 1% buffered lidocaine was used to anesthetize the entry site. A 4 mm incision was made with a scalpel and the saphenous vein was entered percutaneously under direct ultrasound guidance with a micropuncture set, a single stick was successful in gaining access. A micro-guide wire was inserted and the needle removed. A micro-set including a dilator was inserted over the microwire and the needle and dilator were removed. A 0.018 guide wire was inserted through the micro-set and threaded through the saphenous vein to the saphenofemoral junction. The dilator was removed and an introducer sheath was inserted over the wire until the end of the sheath entered the saphenofemoral junction. The dilator and wire were removed and the 600 micron fiber was introduced and placed and positioned so that it extended beyond the sheath and was 3 cm peripheral to the saphenofemoral femoral junction. Final position of the fiber was determined by ultrasound guidance and duplex imaging. Tumescent anesthetic was delivered by ultrasound guidance. 75 cc of fluid was delivered along the entire course of the saphenous vein. The solution consisted of 500 cc of normal saline with 20mL of 1% lidocaine and 10 mL of sodium bicarbonate. A final positioning check was made. The energy source was turned on by means of the foot pedal and the fiber and sheath were withdrawn. The total number of Joules delivered was 489. The laser was active for 61 seconds under continuous pulse, average laser use of 8 J. Laser start time 8:36 a.m. January 06, 2022. Laser stop time 8:37 a.m. January 06, 2022. A duplex ultrasound revealed compressibility and flow at the saphenofemoral junction immediately after the procedure. Hemostasis at the access site was achieved. The skin incision of the saphenous vein was closed with a 4 x 4. A compression stocking was applied. Postop instructions were given. A follow up appointment was recommended and scheduled. The patient tolerated the procedure well and was discharged in good condition. CONCLUSION: 1. Technically successful endovenous laser ablation of the left anterior accessory saphenous vein. Dictated by: Christina Peña MD on 01/06/2022 at 08:49 Approved by: Christina Peña MD on 01/06/2022 at 08:51 [facility] XR Shoulder Complete Right*o n 12-29-2021 XR Shoulder Complete Right* CLINICAL HISTORY: Patient fell 1 week ago with pain between scapula and radiating into right shoulder and right arm. History of right torn rotator cough. COMPARISON: None. TECHNIQUE: 5 Views were obtained. FINDINGS: No signs of fracture, dislocation or osseous destruction. The acromiohumeral distance is decreased, indicating rotator cuff tear. Mild degenerative changes at the AC joint. Marginal spurring of the humeral head. Marginal spurring at AC joint. IMPRESSION: NO FRACTURE OR DISLOCATION. AC JOINT ARTHROSIS. NARROWED ACROMIOHUMERAL DISTANCE, SUGGESTIVE OF ROTATOR CUFF TEAR. MARGINAL SPURRING HUMERAL HEAD. Report reported and signed by Sherri Lerner on 12/29/2021 1637 Normal [facility] XR Spine Thoracic 3 Views*on 12-29-2021 XR Spine Thoracic 3 Views* CLINICAL HISTORY: Patient fell 1 week ago with pain between scapula which radiates into her right shoulder and right arm. COMPARISON: None. TECHNIQUE: 3 Views were obtained. FINDINGS: No signs of fracture, malalignment or osseous destruction. Mild narrowing at T5-6 and T6-7 levels. The dorsal spine is kyphotic. Bones are demineralized. There is anterior and lateral spurring at multiple mid and lower thoracic disc levels. There are multiple metallic clips at the esophagogastric junction. There are atherosclerotic calcifications within the aortic arch. Pedicles appear grossly intact. Mild dextroscoliosis of the upper dorsal spine. IMPRESSION: NO FRACTURE OR MALALIGNMENT. DORSAL KYPHOSIS. DEGENERATIVE CHANGES. Report reported and signed by Sherri Lerner on 12/29/2021 1642 Normal [facility] VC CONSULT FOLLOWUPon 2021 VC CONSULT FOLLOWUP Patient: RUBI SOLARES Exam Date: 12/08/2021 : 1955 Gender:F Ordering : DR CHRISTINA PEÑA M.D. Admission #: [id number] Family : Order #: [id number] CLICK HERE TO VIEW EXAM RADIOLOGY REPORT PROCEDURE: VEIN CENTER CONSULTATION FOLLOWUP VEIN CENTER - OFFICE VISIT FOLLOW UP COMPARISON: VC CONSULT FOLLOWUP, 11/24/2021. PROGRESS NOTES: The patient reports mild to moderate discomfort of the left leg following intravenous laser ablation. The patient has worn her compression stocking. The patient has not required additional pain medication over her normal tramadol. The patient has followed our recommendations to walk 20-30 minutes once or twice per day since the procedure. Physical exam demonstrates multiple areas of bruising along the left medial thigh and lower leg consistent with tumescent injection. No areas of erythema or warmth to suggest cellulitis or thrombophlebitis. Thrombosed left great saphenous vein can be palpated. Review of the ultrasound performed the same day demonstrates occlusive thrombus extending throughout the left great saphenous vein with heat induced thrombus 1.7 cm from the saphenofemoral junction. Evaluation of the anterior accessory saphenous veins demonstrates dilated incompetent left anterior accessory saphenous vein. This was discussed with the patient. The patient expressed a desire to proceed with treatment of incompetent left anterior accessory saphenous vein. IMPRESSION: 1. Successful ablation of the left great saphenous vein 2. Persistent dilated incompetent left anterior accessory saphenous vein PLAN: Endovenous laser ablation left anterior accessory saphenous vein Nurse notes, history and physical were reviewed and confirmed, see attached forms. The nurse was present throughout the physical exam and consultation Dictated by: Christina Peña MD on 12/08/2021 at 09:00 Approved by: Christina Peña MD on 12/08/2021 at 09:03 Normal [facility] VC EXT VENOUS LT LIMITEDon 0 12-08-2021 VC EXT VENOUS LT LIMITED Patient: RUBI SOLARES Exam Date: 12/08/2021 : 1955 Gender:F Ordering : DR CHRISTINA PEÑA M.D. Admission #: [id number] Family : Order #: [id number] CLICK HERE TO VIEW EXAM This report includes an Addendum and supersedes previous reports for this exam. RADIOLOGY REPORT PROCEDURE: VEIN CENTER EXTREMITY VENOUS LEFT LIMITED COMPARISON: None. INDICATIONS: Phlebitis of superficial veins of lower extremity I80.02 TECHNIQUE: Lower extremity chase scale and Duplex Doppler evaluation of the deep venous system from the inguinal ligament through the calf veins. FINDINGS: REGION: Left lower extremity. THROMBI: Negative for DVT. Heat induced thrombus arising 1.7 cm from the SFJ. The heat induced thrombus extends from groin to distal calf. The GSV becomes patent again at distal calf below the area of insertion. COMPRESSIBILITY: Noncompressibility corresponding to thrombus FLOW: Absent flow corresponding to thrombus *Exam performed in accordance with [facility] practice guidelines- Peripheral venous ultrasound, July 05, 2009. CONCLUSION: Post ablation occlusion of the left great saphenous vein with heat induced thrombus 1.7 cm from the saphenofemoral junction Dictated by: Christina Peña MD on 12/08/2021 at 08:19 Approved by: Christina Peña MD on 12/08/2021 at 08:20 ADDENDUM: Evaluation of the bilateral AASV was made Right AASV: Up to 4 mm. Left AASV: 8.9 mm with reflux measuring up to 1.5 seconds Dictated by: Christina Peña MD on 12/08/2021 at 08:58 Approved by: Christina Peña MD on 12/08/2021 at 08:59 Normal [facility] VC ENDOVENOUS ABL 1ST V LTon 11-30-2021 VC ENDOVENOUS ABL 1ST V LT Patient: RUBI SOLARES Exam Date: 11/30/2021 : 1955 Gender:F Ordering : DR CHRISTINA PEÑA M.D. Admission #: [id number] Family : Order #: [id number] CLICK HERE TO VIEW EXAM RADIOLOGY REPORT PROCEDURE: VEIN CENTER ENDOVENOUS ABLATION FIRST VEIN LEFT COMPARISON: None. INDICATIONS: Pain co-occurrent and due to varicose veins of bilateral legs OPERATIVE REPORT: The risks and benefits of the procedure had been previously discussed, and were rediscussed at length. Informed written consent was obtained by and Larry Hernandez assisted. Time out procedure was performed. The left lower extremity was prepared and draped in the usual sterile fashion to allow knee flexion in the sterile field. Duplex ultrasound probe was draped in a sterile cover, sterile transmission gel was used. Venous mapping was performed with the areas of dilation and large tributaries marked. The total length was 57 cm from the entry 3 cm above the medial malleolus to 3 cm below the saphenofemoral junction. The diameter of the greater saphenous vein ranged from 8 mm. A 30 gauge needle and 1% buffered lidocaine was used to anesthetize the entry site. A 4 mm incision was made with a scalpel and the saphenous vein was entered percutaneously under direct ultrasound guidance with a micropuncture set, a single stick was successful in gaining access. A micro-guide wire was inserted and the needle removed. A micro-set including a dilator was inserted over the microwire and the needle and dilator were removed. A 0.018 guide wire was inserted through the micro-set and threaded through the saphenous vein to the saphenofemoral junction. The dilator was removed and an introducer sheath was inserted over the wire until the end of the sheath entered the saphenofemoral junction. The dilator and wire were removed and the 600 micron fiber was introduced and placed and positioned so that it extended beyond the sheath and was 3 cm peripheral to the saphenofemoral femoral junction. Final position of the fiber was determined by ultrasound guidance and duplex imaging. Tumescent anesthetic was delivered by ultrasound guidance. Three nerve 50 cc of fluid was delivered along the entire course of the saphenous vein. The solution consisted of 500 cc of normal saline with 20mL of 1% lidocaine and 10 mL of sodium bicarbonate. A final positioning check was made. The energy source was turned on by means of the foot pedal and the fiber and sheath were withdrawn. The total number of Joules delivered was 2955. The laser was active for 369 seconds under continuous pulse, average laser use of 8 J. Laser start time 12:56 p.m. November 30, 2021. Laser stop time 1:04 p.m. November 30, 2021. A duplex ultrasound revealed compressibility and flow at the saphenofemoral junction immediately after the procedure. Hemostasis at the access site was achieved. The skin incision of the saphenous vein was closed with a 4 x 4. A compression stocking was applied. Postop instructions were given. A follow up appointment was recommended and scheduled. The patient tolerated the procedure well and was discharged in good condition. CONCLUSION: 1. Technically successful endovenous laser ablation of the left great saphenous vein. Dictated by: Juliann Holt M.D. on 11/30/2021 at 15:01 Approved by: Juliann Holt M.D. on 11/30/2021 at 15:03 [facility] VC CONSULT FOLLOWUPon 2021 VC CONSULT FOLLOWUP Patient: RUBI SOLARES Exam Date: 11/24/2021 : 1955 Gender:F Ordering : DR CHRISTINA PEÑA M.D. Admission #: [id number] Family : Order #: [id number] CLICK HERE TO VIEW EXAM RADIOLOGY REPORT PROCEDURE: VEIN CENTER CONSULTATION FOLLOWUP VEIN CENTER - OFFICE VISIT FOLLOW UP COMPARISON: None. PROGRESS NOTES: The patient reports episode of pain and significant cramping within right leg which has since resolved. There has been interval reduction in varicosities. The patient has followed our recommendations to walk 20-30 minutes once or twice per day since the procedure. Physical exam demonstrates several areas of bruising along medial right thigh. No erythema or findings to suggest infection.. Persistent varicosities are identified along the legs bilaterally. Review of the ultrasound performed the same day demonstrates occlusive thrombus extending throughout the treated vein, see separate report, consistent with a successful ablation. No thrombus extending into or beyond the saphenofemoral junction. The patient expressed a desire to proceed with treatment of left great saphenous vein. The patient was informed that treatment was a process and would require several more procedures/sessions. IMPRESSION: 1. Successful ablation of the right saphenous vein 2. Persistent incompetent, dilated varicose veins and bilateral lower extremity symptoms PLAN: Endovenous laser ablation of left great saphenous vein. Nurse notes, history and physical were reviewed and confirmed, see attached forms. The nurse was present throughout the physical exam and consultation Dictated by: Juliann Holt M.D. on 11/24/2021 at 15:51 Approved by: Juliann Holt M.D. on 11/24/2021 at 15:54 Normal [facility] VC EXT VENOUS RT LIMITEDon 0 11-24-2021 VC EXT VENOUS RT LIMITED Patient: RUBI SOLARES Exam Date: 11/24/2021 : 1955 Gender:F Ordering : DR CHRISTINA PEÑA M.D. Admission #: [id number] Family : Order #: [id number] CLICK HERE TO VIEW EXAM RADIOLOGY REPORT PROCEDURE: VEIN CENTER EXTREMITY VENOUS RIGHT LIMITED COMPARISON: None. INDICATIONS: Phlebitis and thrombophlebitis of superficial veins of right lower extremity I80.01 TECHNIQUE: Lower extremity chase scale and Duplex Doppler evaluation of the deep venous system from the inguinal ligament through the calf veins. FINDINGS: REGION: Right lower extremity. THROMBI: Negative for DVT. Heat induced thrombus visualized 5.2 cm from SFJ. The heat induced thrombus extends from groin to proximal calf. COMPRESSIBILITY: Non-compressible segments. FLOW: Areas of no flow. OTHER: CONCLUSION: 1. Successful post ablation occlusion of right great saphenous vein. Dictated by: Juliann Holt M.D. on 11/24/2021 at 15:46 Approved by: Juliann Holt M.D. on 11/24/2021 at 15:51 Normal [facility] VC ENDOVENOUS ABL 1ST V RTon 11-17-2021 VC ENDOVENOUS ABL 1ST V RT Patient: RUBI SOLARES Exam Date: 11/17/2021 : 1955 Gender:F Ordering : DR CHRISTINA PEÑA M.D. Admission #: [id number] Family : Order #: [id number] CLICK HERE TO VIEW EXAM RADIOLOGY REPORT PROCEDURE: VEIN CENTER ENDOVENOUS ABLATION FIRST VEIN RIGHT GREAT SAPHENOUS VEIN COMPARISON: VC VENOUS REFLUX NAKUL LMT, 10/05/2021. INDICATIONS: Pain co-occurrent and due to varicose veins of bilateral legs I83.813 OPERATIVE REPORT: The risks and benefits of the procedure had been previously discussed, and were rediscussed at length. Informed written consent was obtained by oh and Larry Hernandez assisted. Time out procedure was performed. The right lower extremity was prepared and draped in the usual sterile fashion to allow knee flexion in the sterile field. Duplex ultrasound probe was draped in a sterile cover, sterile transmission gel was used. Venous mapping was performed with the areas of dilation and large tributaries marked. The total length was 38 cm from the entry mid calf to 3 cm below the saphenofemoral junction. The diameter of the greater saphenous vein ranged from 4-8 mm. A 30 gauge needle and 1% buffered lidocaine was used to anesthetize the entry site. A 4 mm incision was made with a scalpel and the saphenous vein was entered percutaneously under direct ultrasound guidance with a micropuncture set, a single stick was successful in gaining access. A micro-guide wire was inserted and the needle removed. A micro-set including a dilator was inserted over the microwire and the needle and dilator were removed. A 0.018 guide wire was inserted through the micro-set and threaded through the saphenous vein to the saphenofemoral junction. The dilator was removed and an introducer sheath was inserted over the wire until the end of the sheath entered the saphenofemoral junction. The dilator and wire were removed and the 600 micron fiber was introduced and placed and positioned so that it extended beyond the sheath and was 3 cm peripheral to the saphenofemoral femoral junction. Final position of the fiber was determined by ultrasound guidance and duplex imaging. Tumescent anesthetic was delivered by ultrasound guidance. 250 cc of fluid was delivered along the entire course of the saphenous vein. The solution consisted of 500 cc of normal saline with 20mL of 1% lidocaine and 10 mL of sodium bicarbonate. A final positioning check was made. The energy source was turned on by means of the foot pedal and the fiber and sheath were withdrawn. The total number of Joules delivered was 1821. The laser was active for 228 seconds under continuous pulse, average laser use of 8 J. Laser start time 8:58 a.m. November 17, 2021. Laser stop time 9:02 a.m. November 17, 2021. A duplex ultrasound revealed compressibility and flow at the saphenofemoral junction immediately after the procedure. Hemostasis at the access site was achieved. The skin incision of the saphenous vein was closed with a 4 x 4. A compression stocking was applied. Postop instructions were given. A follow up appointment was recommended and scheduled. The patient tolerated the procedure well and was discharged in good condition. CONCLUSION: 1. Technically successful endovenous laser ablation of the right great saphenous vein. Dictated by: Christina Peña MD on 11/17/2021 at 09:09 Approved by: Christina Peña MD on 11/17/2021 at 09:11 Normal [facility] Ambulatory Visit Summaryon 0 10-16-2021 Ambulatory Visit Summary RUBI SOLARES :1955 Visit Date:10/16/2021 Ambulatory Visit Instructions Your Diagnosis Incontinence without sensory awareness Urinary leakage Gross hematuria Tests Performed Urnls Dip Stick Auto w/o Microscopy POC 00823 Your Care Team Attending Physician - Deni LOZA, Deneen Ramos Primary Care Physician - OREN HENRY DO This Is Your Medications List estradiol topical (Estrace 0.1 mg/g Cream) mirabegron (Myrbetriq 25 mg oral tablet, extended release) Contact prescribing physician if questions or concerns ergocalciferol (ergocalciferol 50,000 intl units Cap) losartan (losartan 100 mg Tab) pregabalin (Lyrica 150 mg Cap) rivaroxaban (Xarelto 20 mg oral tablet) Procedures Performed Cystoscopy (07/17/2021). Discharge Vitals Heart Rate (Peripheral) 78 Blood Pressure 144/87 Height 160 cm Height 160.0 cm Medications What How Much When Instructions Unchanged estradiol topical (Estrace 0.1 mg/ g Cream) See instructions Apply pea size amount to vaginal area three times a week Unchanged mirabegron (Myrbetriq 25 mg oral tablet, extended release) 1 Tablets By Mouth Every day Duration: 30 Days Unchanged ergocalciferol (ergocalciferol 50,000 intl units Cap) Contact prescribing physician if questions or concerns Unchanged losartan (losartan 100 mg Tab) Contact prescribing physician if questions or concerns Unchanged pregabalin (Lyrica 150 mg Cap) By Mouth 2 times a day Contact prescribing physician if questions or concerns Unchanged rivaroxaban (Xarelto 20 mg oral tablet) 1 Tablets Contact prescribing physician if questions or concerns Test Results Urnls Dip Stick Auto w/o Microscopy POC 82949 (10/16/2021) Bilirubin Urine Dipstick - Negative Blood Urine Dipstick - Negative Glucose Urine Dipstick - Negative Ketones Urine Dipstick - Negative Leukocytes Urine Dipstick - 1+ Small Nitrite Urine Dipstick - Negative Protein Urine Dipstick - Negative Specific Hamilton Urine Dipstick - 1.010 Urine Appearance Urine Dipstick - Clear Urine Color Urine Dipstick - Yellow Urobilinogen Urine Dipstick - Normal 0.2-1 EU/dl pH Urine Dipstick - 5.5 Allergies Percocet (Palpitations) oxyCODONE (Palpitations) Problems Ongoing - Any problem that you are currently receiving treatment for. Asymptomatic microscopic hematuria Former smoker Gross hematuria Incontinence without sensory awareness Normal [facility] Patient Educationon 10-17-19 Patient Education Obstetrics and Gynecology Kegel Exercises Kegel exercises can help strengthen your pelvic floor muscles. The pelvic floor is a group of muscles that support your rectum, small intestine, and bladder. In females, pelvic floor muscles also help support the womb (uterus). These muscles help you control the flow of urine and stool. Kegel exercises are painless and simple, and they do not require any equipment. Your provider may suggest Kegel exercises to: ? Improve bladder and bowel control. ? Improve sexual response. ? Improve weak pelvic floor muscles after surgery to remove the uterus (hysterectomy) or (females). ? Improve weak pelvic floor muscles after prostate gland removal or surgery (males). Kegel exercises involve squeezing your pelvic floor muscles, which are the same muscles you squeeze when you try to stop the flow of urine or keep from passing gas. The exercises can be done while sitting, standing, or lying down, but it is best to vary your position. Exercises How to do Kegel exercises: 1. Squeeze your pelvic floor muscles tight. You should feel a tight lift in your rectal area. If you are a female, you should also feel a tightness in your vaginal area. Keep your stomach, buttocks, and legs relaxed. 2. Hold the muscles tight for up to 10 seconds. 3. Breathe normally. 4. Relax your muscles. 5. Repeat as told by your health care provider. Repeat this exercise daily as told by your health care provider. Continue to do this exercise for at least 4?6 weeks, or for as long as told by your health care provider. You may be referred to a physical therapist who can help you learn more about how to do Kegel exercises. Depending on your condition, your health care provider may recommend: ? Varying how long you squeeze your muscles. ? Doing several sets of exercises every day. ? Doing exercises for several weeks. ? Making Kegel exercises a part of your regular exercise routine. This information is not intended to replace advice given to you by your health care provider. Make sure you discuss any questions you have with your health care provider. Document Released: 03/14/2013 Document Revised: 11/15/2018 Document Reviewed: 11/15/2018 Impraise Patient Education ? 2020 [employer]. Urology Urinary Incontinence Urinary incontinence refers to a condition in which a person is unable to control where and when to pass urine. A person with this condition will urinate when he or she does not mean to (involuntarily). What are the causes? This condition may be caused by: ? Medicines. ? Infections. ? Constipation. ? Overactive bladder muscles. ? Weak bladder muscles. ? Weak pelvic floor muscles. These muscles provide support for the bladder, intestine, and, in women, the uterus. ? Enlarged prostate in men. The prostate is a gland near the bladder. When it gets too big, it can pinch the urethra. With the urethra blocked, the bladder can weaken and lose the ability to empty properly. ? Surgery. ? Emotional factors, such as anxiety, stress, or post-traumatic stress disorder (PTSD). ? Pelvic organ prolapse. This happens in women when organs shift out of place and into the vagina. This shift can prevent the bladder and urethra from working properly. What increases the risk? The following factors may make you more likely to develop this condition: ? Older age. ? Obesity and physical inactivity. ? and childbirth. ? Menopause. ? Diseases that affect the nerves or spinal cord (neurological diseases). ? Long-term (chronic) coughing. This can increase pressure on the bladder and pelvic floor muscles. What are the signs or symptoms? Symptoms may vary depending on the type of urinary incontinence you have. They include: ? A sudden urge to urinate, but passing urine involuntarily before you can get to a bathroom (urge incontinence). ? Suddenly passing urine with any activity that forces urine to pass, such as coughing, laughing, exercise, or sneezing (stress incontinence). ? Needing to urinate often, but urinating only a small amount, or constantly dribbling urine (overflow incontinence). ? Urinating because you cannot get to the bathroom in time due to a physical disability, such as arthritis or injury, or communication and thinking problems, such as Alzheimer disease (functional incontinence). How is this diagnosed? This condition may be diagnosed based on: ? Your medical history. ? A physical exam. ? Tests, such as: ? Urine tests. ? X-rays of your kidney and bladder. ? Ultrasound. ? CT scan. ? Cystoscopy. In this procedure, a health care provider inserts a tube with a light and camera (cystoscope) through the urethra and into the bladder in order to check for problems. ? Urodynamic testing. These tests assess how well the bladder, urethra, and sphincter can store and release urine. There are different types of uro (more content not included)... Normal [facility] Urology Office/Clinic Noteon 10-16-2021 Urology Office/Clinic Note Chief Complaint 3 Month f/u [facility] Staff Rubi is a 66 y.o. female here for 3 month follow up. Previous Dx: asymptomatic microscopic hematuria, gross hematuria, incontinence w/o sensory awareness. S/P cystoscopy done on 07/17/21. CT done on 08/15/21 showed no stones or explantation for hematuria. Pt states she doesn't notice a difference being on the Myrbetriq. Dysuria: _denies Incomplete bladder emptying: _denies Hematuria: _denies Frequency: _denies Urgency: _mild Nocturia: _1x Stream: _steady Leaking: _yes Post void dripping: _denies Wearing pads/ Depends: _denies Urge incontinence: _yes Stress incontinence: _yes Incontinence without Sensory Awareness: _yes Abdominal pain: _denies Flank pain: _denies Sexual complaints: _ History of Present Illness Tests Reviewed: Reviewed UA. I have reviewed and verified the staff HPI to be accurate for this encounter. I have reviewed the previous health record information and history for this patient from Dr. Cheema There have been no associated fever, chills, flank pain, or blood in the urine. Denies any urinary infections since last encounter. Review of Systems PHQ Score Initial Depression Screen Score: 0 ROS - Provider Constitutional: denies weight loss, denies hot flashes. Eyes: denies eye problems. Gastrointestinal: denies nausea, denies vomiting. Cardiovascular: denies chest pain or angina. Integumentary: no dryness Musculoskeletal: denies musculoskeletal symptoms. ENMT: denies otolaryngeal symptoms. Respiratory: no shortness of breath. Heme/Lymph: denies easy bleeding tendency, denies easy bruising tendency. Psychiatric: no confusion, no anxiety. Genitourinary: See HPI Physical Exam Vitals & Measurements HR: 78(Peripheral) BP: 144/87 HT: 160 cm HT: 160.0 cm General Appearance: alert , no acute distress, well nourished, well developed female. Genitourinary: bladder nonpalpable, no flank pain. Assessment/Plan 1. 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 Otherwise no leakage or bothersome urgency during the day at all. S/P Cysto w/ UD done [address] Ocampo - unable to tell difference in urinary symptoms following dilation S/P TVT Sling by Dr. Ocampo - urge following sling UA today shows small BOBBI. Asx Currently taking Myrbetriq 25mg but stated she can't tell if this medication is working or not. Discussed bladder diary and trial off medication if she feels it is not helping. However, she is happy with her overall status and does not want to risk leakage while off medication. Also discussed Botox injections if she desires to be off meds. Regarding leakage with standing, since only situational, would not recommend bulking agent but instead pelvic floor exercises and behavioral modification to break cycle with water trigger. -Cont mirabegron -Urge exercises and kegels Declined scheduled f/u. Pt will follow up with our office as needed. All questions and concerns were discussed. Pt acknowledge and understands. Pt will call our office with any changes in urinary symptoms. Ordered: Urnls Dip Stick Auto w/o Microscopy POC 89222 2. Gross hematuria (R31.0: Gross hematuria) cysto done 07/17/21 without evidence of malignancy. 07/17/21 urine cytology negative CTU on 08/15/21 showed no stones or explantation for hematuria, no filling defects No recurrence. Cont to monitor 3. Vaginal atrophy (N95.2: Postmenopausal atrophic vaginitis) Remains on estrace cream, well tolerated. Cont, refills provided Orders: estradiol topical, See Instructions, 42.5 gm, Refill(s) 6, Apply pea size amount to vaginal area three times a week, [id number], 160, cm, 10/16/21 9:10:00 EDT, Height/Length Dosing mirabegron, 25 mg = 1 tab(s), Oral, Daily, X 30 day(s), # 30 tab(s), Refills(s) 11, Pharmacy: [id number], 160, cm, 10/16/21 9:10:00 EDT, Height/Length Dosing Follow-up With When Contact Information Deni LOZA, Deneen Ramos, URL, URO Additional Instructions: PRN Patient Education Kegel Exercises Urinary Incontinence I, Shannon Nichols, personally scribed for Dr. Cheema on 10/16/2021 09:34:14. . Documentation recorded by the scribe, Shannon Nichols, accurately reflects the services(s) I performed and decisions made by me. Authenticated by Dr. Cheema on 10/16/2021 10:27:09. Problem List/Past Medical History Ongoing Asymptomatic microscopic hematuria Former smoker Gross hematuria Incontinence without sensory awareness Historical No qualifying data Procedure/Surgical History Cystoscopy (07/17/2021). Medications ergocalciferol 50,000 intl units Cap Estrace 0.1 mg/g Cream, See Instructions, 3 refills losartan 100 mg Tab Lyrica 150 mg Cap, Oral, BID Myrbetriq 25 mg oral tablet, extended release, 25 mg= 1 tab(s), Oral, Da (more content not included)... Normal [facility] Comment on above: Result Comment: Elec tronically Signed By: Deni LOZA, Deneen Ramos\.br\Date and Time Signed: 10/16/21 10:29 EDT VC COMP CONSULTATIONon 10-05 VC COMP CONSULTATION Patient: RUBI SOLARES Exam Date: 10/05/2021 : 1955 Gender:F Ordering : EMEKA ENGEL Admission #: [id number] Family : Order #: [id number] CLICK HERE TO VIEW EXAM RADIOLOGY REPORT PROCEDURE: VC VEIN CENTER CONSULTATION VEIN CENTER - OFFICE VISIT INITIAL COMPARISON: None. PROGRESS NOTES: 66-year-old female who presents with a long history of bilateral varicose veins. The patient complains of bulging dilated discolored veins with leg pain swelling and significant and often leg cramps. Patient's symptoms are bilaterally symmetric. The patient describes the pain as a dull throbbing sensation and rates the pain as a 7 on a scale of 1-10. The patient has had varicose veins for approximately 20 years. 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 The patient has worn compression stockings on and off over the years. The patient does take tramadol and Lyrica for pain. The patient's symptoms are exacerbated by prolonged sitting and standing required of her job. The patient's symptoms are partially relieved by rest and leg elevation. The patient denies any signs and symptoms to suggest arterial ischemia. The patient does try to exercise regularly by walking. The patient describes a family history significant for varicose veins and heart disease in her father. Breast and liver cancer in her mother. Type 2 diabetes in a paternal grandmother. . One grandchild. The patient does not drink alcohol. The patient has never smoked. No illicit drug use or prescription miss use. The patient has past in current medical history is significant for atrial fibrillation and cardiomyopathy for which she is on Xarelto. Hypertension for which she is on losartan and Carvedilol. Vitamin B12 deficiency, iron deficiency. Bilateral total knee arthroplasty. Gastric bypass surgery. No history of deep venous thrombus or pulmonary embolus. See separate history and physical for medication list. No prior treatment of her varicose or spider veins. Nursing notes were reviewed. After history and physical exam I discussed at length the pathophysiology of venous hypertension and possible treatments, therapies and strategies available. We discussed at length the importance of elevating the lower extremities above the level of the heart, increased physical activity and compression stocking use. Alternatives were provided including bilateral thigh-high compression stockings for conservative therapy. Surgical alternatives of ligation and stripping and phlebectomy were discussed. Intravenous laser ablation, micro foam chemical ablation and injection sclerotherapy were discussed at length. The patient's questions were answered. The risks and benefits were discussed. Ultrasound venous reflux study performed the same day was discussed at length with the patient. The report demonstrates moderate bilateral great saphenous vein venous insufficiency with associated dilatation. Mild bilateral small and anterior accessory saphenous vein venous insufficiency. Bilateral incompetent branch saphenous varicose veins. PHYSICAL EXAM: The right leg demonstrates moderate bulging dilated varicose veins along the medial anterior and lateral thigh, anterior, lateral and posterior knee, anterior and medial lower leg. Scattered pre hemorrhagic veins most significant along the anterior and lateral distal thigh. Mild subcutaneous edema. No active ulceration or skin discoloration. The left leg demonstrates moderate bulging dilated varicose veins along the medial anterior and lateral thigh, anterior , lateral and posterior knee, medial lower leg. Mild subcutaneous edema. No active ulceration or skin discoloration. Both thighs, legs and feet were symmetrically warm to the touch. Good posterior tibial and dorsalis pedis pulses were present bilaterally. IMPRESSION: 1. Moderate bilateral great saphenous vein, mild bilateral small saphenous and anterior accessory saphenous vein venous insufficiency with significant dilatation of the great saphenous veins 2. Moderate bilateral incompetent lower extremity branch saphenous tributaries/ varicose veins 3. Mild bilateral lower extremity subcutaneous edema 4. No flow significant arterial disease 5. CEAP: C3, Ep, Asp, Pr PLAN: 1. Endovenous laser ablation right great saphenous vein followed by left great saphenous vein 2. Re-evaluation of the anterior accessory saphenous veins for possible ablation 3. Bilateral micro foam chemical ablation of incompetent branch saphenous varicose veins 4. Bilateral injection sclerotherapy of reticular and pre hemorrhagic veins 5. Long-term use of bilateral thigh-high 20-30 mm compression stockings 6. Elevated legs and increased physical activity for symptomatic relief Nurse notes, history and physica (more content not included)... Normal [facility] VC VENOUS REFLUX NAKUL LMTon 0 10-05-2021 VC VENOUS REFLUX NAKUL LMT Patient: RUBI SOLARES Exam Date: 10/05/2021 : 1955 Gender:F Ordering : EMEKA ENGEL Admission #: [id number] Family : Order #: [id number] CLICK HERE TO VIEW EXAM RADIOLOGY REPORT PROCEDURE: VEIN CENTER ULTRASOUND VENOUS REFLUX BILATERAL LIMTED COMPARISON: None. INDICATIONS: Pain co-occurrent and due to varicose veins of bilateral legs I83.813 TECHNIQUE: Duplex imaging of the lower extremity to assess the deep and superficial venous system for the presence of deep or superficial venous incompetence and to document the location and severity of disease. The study includes evaluation of the great saphenous vein (GSV), anterior accessory saphenous vein (AASV) and small saphenous vein (SSV). Patient scanned in reverse Trendelenburg and standing. FINDINGS: RIGHT LOWER EXTREMITY: Saphenofemoral Junction Reflux: Yes 7.4mm 2.9 sec GSV: Diam (mm) Reflux/ Time (sec) Proximal Thigh 6.4 Yes 4.6 Mid Thigh 4.3 Yes 0.9 Distal Thigh 5.1 Yes 2.9 Prox Calf 4.2 Yes 0.3 Mid Calf 3.0 Yes 0.2 Saphenopopliteal Junction Reflux: 2.4mm No SSV: Proximal Calf 1.9 Yes 1.2 Mid Calf 1.6 Yes 0.4 AASV: Proximal Thigh 5.7 Yes 0.7 Mid Thigh 5.4 Yes 0.7 Distal Thigh Thrombi: No acute or chronic thrombus. Compressibility: Normal. Flow: Normal. Preforator: Mid calf 3.3mm with 1.1s reflux. Prox calf 3.1 mm with 2s reflux. Tech Note: Incompetent varicose vein connects to proximal SSV in calf measures 1.8 mm with 0.5s reflux. 4.0 mm with 0.9s reflux. Distal thigh varicose vein off of AASV measures 5.4 mm with 1.5s reflux. Mid posterior calf varicose vein measures 3.4 mm with 3.6s reflux. LEFT LOWER EXTREMITY: Saphenofemoral Junction Reflux: Yes 7.6 mm 1.8 sec GSV: Diam (mm) Reflux/Time (sec) Proximal Thigh 7.7 Yes 1.2 Mid Thigh 4.4 Yes 1.0 Distal Thigh 4.9 Yes 2.3 Prox Calf 4.6 Yes 1.6 Mid Calf 3.9 Yes 1.9 Saphenopopliteal Junction Relux: 3.7 mm Yes 0.5 SSV: Proximal Calf 3.3 Yes 1.0 Mid Calf 2.7 Yes 0.3 AASV: Proximal Thigh 6.6 Yes 0.9 Mid Thigh 5.5 Yes 2 Distal Thigh Thrombi: No acute or chronic thrombus at this time. Compressibility: Normal. Flow: Normal. Postulant: Dist calf 3.4mm with 0.7s reflux. Mid calf 3.8mm with 0.4s reflux. Prox calf 4.3mm with 1.0s reflux. Tech Note: Complex fluid collection in popliteal measures 3.5 x 2.4 x 1.6 cm. Mid calf varicosity measures 4.1 mm with 0.5s reflux. Proximal calf anterior varicosity measures 4.1 mm with 0.5s reflux. Proximal posterior calf varicose vein measures 3.5 mm with 2.2s reflux. Mid/lateral thigh varicose vein measures 4.5 mm with 1.1s reflux. CONCLUSION: 1. Moderate bilateral great saphenous vein venous insufficiency with associated dilatation, right greater than left 2. Bilateral small saphenous vein venous insufficiency without dilatation 3. Mild bilateral anterior accessory saphenous vein venous insufficiency with mild dilatation 4. Bilateral incompetent branch saphenous tributaries/varicose vein Dictated by: Christina Peña MD on 10/05/2021 at 11:32 Approved by: Christina Peña MD on 10/05/2021 at 11:35 Normal [facility] Reminders 08-24-2021 Reminders - From: Rona Argueta To: EU - Clinical; Rona Argueta; Sent: 07/17/2021 14:21:57 EDT Show up: 07/24/2021 14:21:00 EDT Subject: CT urogram Reminder/Recall being scheduled at [facility]. Show results to Dr Cheema not yet completed, checked on [facility] spoke with pt she states she has not been called by [facility] to be scheduled yet, cannot get [facility] CS on the phone spoke with pt, she said she still has not been contacted by [facility], can't get anyone on the phone from [facility]. called [facility] CS, left msg on vm patient is scheduled 08/15/21 at [facility] for CT urogram, show Dr Cheema results CT Urogram results scanned into chart today done, msg was sent to dr cheema to review results Normal [facility] RAD - CT Reporton 08-20-2021 RAD - CT Report [id number]#1 .00CD:127 Normal [facility] Lab Reportson 08-18-2021 Lab Reports [id number]#1 .00CD:127 Normal [facility] BUNon 08-15-2021 Urea nitrogen [Mass/Vol] 13.0 mg/dL Normal 7.0-18.0 [facility] Comment on above: Performed By: #### B UN, CREA ####[facility] [address] [place] [address]Dr. Adam Capellan CREATININEon 08-15-2021 Creatinine [Mass/Vol] 0.72 mg/dL Normal 0.55-1.02 [facility] Comment on above: Performed By: #### B UN, CREA ####[facility] [address] [place] [address]Dr. Adam Capellan EGFR-AF [place] >60 Normal >=60 [facility] Comment on above: Performed By: #### B UN, CREA ####[facility] [address] [place] [address]Dr. Adam Caepllan EGFR-NON AF [place] >60 Normal >=60 [facility] Comment on above: Performed By: #### B SINDHU, CREA ####[facility] [address] [place], [place] [address] ABD/PELV WO W CONon 08-15 CT ABD/PELV WO W CON EXAMINATION: CT ABD/PELV WO W CON, 08/15/2021 9:36 AM EDT HISTORY: Microscopic hematuria COMPARISON: 12/07/2016 TECHNIQUE: CT scan of the abdomen and pelvis was performed without and with IV contrast. CT dose reduction technique was used, including Automated Exposure Control. FINDINGS: LUNG BASES: No visible pulmonary or pleural disease. Pacemaker wires LIVER: No enlargement, atrophy, abnormal density, or significant focal lesion. BILIARY: No dilatation or calcification. PANCREAS: No lesion, fluid collection, ductal dilatation, or atrophy. SPLEEN: No enlargement or focal lesion. ADRENALS: No mass or enlargement. KIDNEYS: No focal mass. Left parapelvic cysts. No renal collecting system filling defects BOWEL/MESENTERY: Suture lines along the stomach. Nonobstructive bowel gas pattern. AORTA/VASCULAR: No aortic aneurysm. Moderate atherosclerosis. RETROPERITONEUM: No mass or adenopathy. LYMPH NODES: No adenopathy. URINARY BLADDER: No visible focal wall thickening, lesion, or calculus. PELVIC ORGANS: Hysterectomy ABDOMINAL WALL: No mass or hernia. BONES: No acute abnormality. Left hip arthroplasty. OTHER: Negative. IMPRESSION: No CT explanation for the patient's hematuria. Electronically authenticated by: CHRISTINA PEÑA Date: 2021-08-15 11:15 Normal [facility] SCREENING MAMMOGRAM W/MAGUI, BILATERAL*on 08-07-2021 SCREENING MAMMOGRAM W/MAGUI, BILATERAL* CLINICAL HISTORY: Screening Mammogram COMPARISON: Priors dating back to 2014. TECHNIQUE: 2D and 3D mammogram imaging of both breasts was performed. RESULT: DENSITY: There are scattered areas of fibroglandular density. There is no suspicious mass, asymmetry, architectural distortion, or calcification. No significant change since the prior mammograms. IMPRESSION: BIRADS 1 : NEGATIVE, NORMAL INTERVAL FOLLOW UP FOLLOW-UP: 12 months DENSITY: Scattered MAMMOGRAPHY IS VERY IMPORTANT TO YOUR HEALTH. THE CURRENT [place] [employer] AND [employer] GUIDELINES RECOMMENDS ANNUAL MAMMOGRAPHY BEGINNING AT AGE 40 THIS FACILITY USES A REMINDER SYSTEM TO ENSURE ALL PATIENTS RECEIVE REMINDER NOTIFICATIONS AT THE APPROPRIATE TIME BASED ON THE RECOMMENDATIONS OF THIS EXAM. Board Certified Radiologist. Accredited by the ACR and FDA. Report reported and signed by Douglas Bernabe on 08/10/2021 1006 Normal [facility] Specialist Patient Correspondenceon Patient Correspondence [id number]# 1.00CD:127 Normal [facility] Patient Correspondence [id number]#1 .00CD:127 Normal [facility] Reminderson 07-30-2021 Reminders - From: Martha Valencia MA To: EU - Clinical; Sent: 07/17/2021 12:03:47 EDT Show up: 07/23/2021 12:03:00 EDT Subject: Ambulatory Reminder Reminder/Recall FISH/Cytology results not in yet. From: Tresa Plummer MA (EU - Clinical) To: Deneen Cheema MD; Sent: 07/28/2021 11:05:31 EDT Show up: 07/28/2021 11:05:00 EDT Subject: RE: Ambulatory Reminder results are now scanned in pdfCD:[id number] ZjR0E7sYAdKb6auY2YHRA lRm9u aN5ESNw0NDVvB2UaMK6yp 9OlzojcB1hpUE5wiRVhQ1 0zxW4oRd0SII0jt5WvQzO gMCBvYmoKPDwv DzpvqOSxM7MnNUZvHMNyl 5CoE7woxsj7oQXqAI2+c3 RyZWFtCnicK+QCAADuAHw PIP5lw7LiACGp XqNgMV5zcqabVAMmh4HkT oa9V4XrsDCnmc2HoTJ7RU ZtE52yTE0VMH0oeNfmOve +FjY3hoSxiJm9 mWKC7Ijj8j/INFAwNFAIS yPgBvTbKCKXEiRDJ2RnWI ZDFMGURGYTdOHoFm9ZeRT UoHh+moKxZkgW v4vUMeFBCHGiYaeNDG1bg 3YjJSCjUrYpIO9zuvk0DY Thm1VlNkv6H4QpqRRmlq6 NnDG3DXMlP44j LG7TKZ7clYnuHEC+PnN0c kNbdFd3dLzpHbUO4gW6Lr BcQSJ4fzPtnTifyiNvXbl MZAGsLB5qcxg7 AB2KrHy8FYRcHfjpmCOIS JMgDHDeLMYaY1VwIMukTy 2yuBXuMN6ShLcBJNZc8YV PyDRUMDRQCEnj tbpfKjZoZAPHMRMyTc1tN bZBCh6IC8FKSF1AhWW1MT Vejsr3MKQZfLjl7gDtRV6 Xm5EKcgxywrSo aYRnIJ1MWM5oq6VbCcTfQ CBvYmoKPDwvRmlsdGVyL0 MoXXItXTWyu0RjX2gupke 5gFHtRA2+c3Ry ZWFtCnicK+QCAADuAHwKZ N6zl1CaBAKtCkMiKJ6mcd w4QDHpq1KcZqm6Q9PesMZ esn3MiJP3XFBd R50yRJ2NSK0wjJnoStJ+P aF2hvQayWh0zNYL0Njo8d /INFIwNFAISeNyCuEyVDA CBgTBZ9AxNRYL OQDQQSPRcNTbVn1QaQIBK WOF/XXXL48YXA4FPB7WGx SysL9NDlJlNSL1ozShfBk lbmRvYmoKOCAw FK1rvpd4LB3JOJhgYL2jH H6Ri5AZr67fF90mrTKgTO ooHPRUT6W5pUFgQ1N5JBq cIz7VaYAwvF7x cyAxMCAwIFIvUGFnZXMgM NNvSJDYQ3UkTFqruzJbSZ AnxyEjP1BwGELwAOWpRe5 +NqPdGG4nbdwq YDKnTZ5lnpn5BT2HsHWmP bAzVGCiOv2kSCssTZ9GBU hjbf0Fe4PtgZOdN7sKQPA tEv2eScwzIp2Z UL5im9OfCeHsRJMob7YiJ rm1R5PoyT22XZToMydji9 ZzVLZxHTSVU4kxs4DsBTX sXYFFGz7KRW2w d3ZcMuZ4FRAgh0YmDonnG UNDQmFzZWQgMTYgMCBSXQ plbmRvYmoKMTYgMCBvYmo KPDwvRmlsdGVy H6SuSXOsTUWbp0DoT8eel jh9pGRsSBn3O76fZy2+c3 VqQNWbAxiqzVL4LWHADve ToZn5GHQIisUW g6qNUwfTrUjRHuwnQGEJb PVUMoFBFSSYJJPlTVOs2Y YdT5XwCohVCWWj2gEQXSH xcBQblklkrRnf vHnvzZvfH/d+a5+9z91n7 33WugCQ/IMFwkxYCYAMoV nD1uvQkL8JN4ICVCpzRPG sMLKme3KMPzwO ApkCfNiMbJkT+Ry7uh0w+ fsq0z+MwQD/t0W8GQXuLL CYjOfy+CbuJCpMAJ5GnFW 2A5sClpAYjwAI icFPtaUBq3GuGUq17apuY uyxOpZ8IeosxrHc9DMrO+ ONORK+tZObOMcmHOl3Gb1 dD4G1ATUDrz/k nPe9DbMOVDEpRuZwX4YgI PJEIVPDCzR9FEJFnW/w0i 5EbF0Fbd/AdlvgQuUkp3n UZoqEfm1DC1qd l67I73cXgNZXK52s5pKZs RlZHOFyAGbP/YzOfX1Vdf H86Bu3YPSdHH7+KNR/Xfy qmwt7ja9Nf+4Z RB/4w/ZXfpkNALCmZbXZ+ ozbcXJKBffXZXq3x09nAm NMlq52Rm7jEpl8EdHQ8ar iM1lu8HuDZO0c KS/o7/pmAy5JF1hOKh4t1 +GntURJALK2KCDvA57msg NWbAyU0iJ4WIkgt/gfB/5 1HhYR/CS+iC+U RDDYlqmyCFg5A1tRfWNKJ Yaw+J+a+A/D/yQJcHaQ7v fV3HDYCnBkVkI+HgAoKhE sZUxpX5MmoXkM QpJ9lIcAjIwi+8+C/n1Xu Ez+iXBsh06gQ3XjjBHGfs ya/RdKQNXSVKRD8wPz5KW IlED4kKC8EM/g KnXATIcNlOYc6KTRiATFV XzEuLHzLRROaNRlnPY7pT H3gxJgLEHSV+K2GOnvlak gBNwBUjAOnoAp 8ArMQBCEhcgQFVKHdCBDy ByyhViQG+QDBUMRUByUCC WHTjrZUIWrqQKrTEjK8lV r0BuzRNXdthBD S3egVSpV+hS6MfCmGxwUZ uMRbQYmJG33WN4IA0GY8V D0Fw0Mg6OIeGB7JC4RI9W O5BKGYi+BpxGA NQF1agkdWTsTQnVQoLZCP QOukZJfUbtR0xHciU+5ik qBt2mlGFYWHDISYUPYne7 VheKilqFWoTaj tiLQCS6jKlAV6UvuYhITY ZJcnd7HxcnTtMx4QZ7INe YLaEqXRpcf2CE5DEaYHyZ mF3pbbra/TBwm XjOCqafvY8YAVRIQkfoih rFYrDrWHOuKDcVysGJsMb GOyaS7PcmDN660mkGnnPS 3ZZ0wEN2CB0TS 5NwuR7EAnIF9AovK7rVzz A/F8/QF9YM8FbfYloq/red 6xPHUVYs0BNLKaJW2tcnZ OZJu9A3xCQTY4 bD0JfBALzYVWIWnTNV5qK u2hBDdnRIOriSDvmWZnN9 9j2NE5ABNMPyBEbllFOR8 NncamMe4qq0Dr LzxzZXrnETJt9Ru7AvyMa LxIGtFI1TSorCqsOTR9GT QC9zdVYdjMyo5GDWepLSL 6HQlU5wTySksP OQL5B3gswmxeRuKYOAkEp XEL1MITNLfzHrohSJRfY2 CDfdH57DmwImi1FMJroyT PIvcizA0dw7Ee QYuVkNu8Bh1BdvieLIpcy RvRA+uc9WS6Vla0+jtVLV RQKh4jEtN30Vdbl4UllCz y9bVI6OrHJsOz rSCJlrDW6Mhiu4sy26Zdy GmEa+Pp1LY7y/A3Ns0Rsv mrqSM7c+lo1qF9fGItBKg g0dVb9BrL2opu 62zVmfV9u/DSh16pkN9zk YG1rAbyRqOHFMdkv8KnfY 0ettvLv6XLgUE2PcF0WLK 0jQL86efYvfH5 djzTntG71Sq75Lb0ZG3y/ V92kmkHLajRCLZSRa9Xxy 3fvupYHGUpja8Zd00NnYU UTjv2YB7vKcLM JY56nkV+j5K9nMoJUrEay o0IZ5emRPHovJsLCFbiD2 grumHiGzmTZjcK6zrKgl2 CRh0RJrmScdxX AfHYgbKwCJ9q7x9FDDavq yyfWRlYxVtts+q3+mhtb5 0d3Tx3a6BxI5mYyFDe50x ijE5Rmoc91rng XN+5q+c7t79fD47Ht9oml 1Gxfs6jg3S+1/6Jj2YEeM HNYdLRwDHRsdbxBovGCmN mWw43Kqd7Tj70 Ngr37riWWou64FvXC2AWz ztGf5A1vdK60drgllxifM Kk777ainf9DJh2xuN4LSu Xi0E3Kl16O43D f8eNs3gtwlmJt8sg6s9jb d0e74np7sc1GX/E28+7xH vQh+JR0ZArr44PbrdZa9F 3ys/on6GkXV+0 f5D/Gv4wPJxK8NFzmXcJt 1AXgC3PkIMMKxHKR2BQxx XJVSEwXVLK7zB76q2sI+d 3hYLQgNDtoffC bRVCzX2kisgAP49FmkqfX 1EQ0b+FcsBIrkLYamE6Lo mk99ORZBwfyqXDqhFyc5J uy2kLnGgYL97d Y1KzikSUZ2O8q0Mcc+Ob4 qcX+tfrdUP3hV7eXXL7Jy RXsEetYYSNrL66+BLFJZw lRxLRiTGJLYnv YiHhFu114dXneTcmvIbnQ c4RscptH4+G50er566loQ vMNj9Dnr8klasE2d1AlaO GiOWHK36h+qfW tm4YQ04sx/JkORh0JJARp EhuWKySukd4TqFp7yHQo3 mtiqLxu7bG7Zz4TEnFFXW X5Tyjs9B84p/U kHDNxr1iqiSXK9FhYbv53 0zjqf0au1C52eHNrrtttc O/UxQcjB3YM7OwgVKuxPD hhtpV2Dafv3sO 395kZm7+xm/NgbWEtWlrf yj2XkdgqNpyNu1MhOgJhp Se1U5wQ8wCiaJLQzs4lAw hfSrp8Mx9mc5u si3jK7xxK8iaUxkV55/mb f82oq7MuX518wC8MgHGnZ eGNyhN8fpv87b2GMgAXk2 xA7rqih8nA8JS xO9JY4lxvZWnD6N2n6HQc krbFPoSPWLVfzUveZGA0U oPD831nUfgqtlXp9x1v+z g8WUQp7WXXeoj m1GcmDp/+y5Tl2dPkZd2Y bmpDaW84j/N+df2JcKrt (more content not included)... Normal [facility] Pre-Certification Formon Pre-Certification Form [id number]#1 .00CD:127 Normal [facility] UroVysion Fish and Urine Cyt o ([facility])on 07-23-2021 UVFISH & UC Diagnosis Info Invalid Interpretation Code [facility] Comment on above: Result Comment: A:Ur ine,Urine:Voided Diagnosis Summary - Diagnosis Summary - The UroVysion FISH study detected normal copy numbers for chromosomes 3, 7, 17, and 9p21. No evidence of aneuploidy for chromosomes 3, 7, or 17 or deletion of the 9p21 locus was found in cells present in this specimen. These findings should be correlated with cytology and cystoscopy results.* Microscopic Notes - Microscopic Notes - Abnormal cells 9p21 deletions: Abnormal cells aneploid events: Total cells analyzed: Hematuria: Gross Description Site ID:A color Yellow fixative Alcohol Received 80 mls of clear yellow fluid with the patient's name and, Urine on the vial. Electronically signed by : on: 07/23/2021 18:16:48 Performed By: #### 1 [id number] ####[facility] [address] [place] [address] Consent for Procedure/Surger yon 07-21-2021 Consent for Procedure/Surgery [id number]# 1.00CD:127 Normal [facility] Insurance Correspondence Off iceon 07-20-2021 Insurance Correspondence Office [id number]#1 .00CD:127 Normal [facility] Patient Educationon 07-18-19 Patient Education Urology Hematuria, Adult Hematuria is blood in the urine. Blood may be visible in the urine, or it may be identified with a test. This condition can be caused by infections of the bladder, urethra, kidney, or prostate. Other possible causes include: ? Kidney stones. ? Cancer of the urinary tract. ? Too much calcium in the urine. ? Conditions that are passed from parent to child (inherited conditions). ? Exercise that requires a lot of energy. Infections can usually be treated with medicine, and a kidney stone usually will pass through your urine. If neither of these is the cause of your hematuria, more tests may be needed to identify the cause of your symptoms. It is very important to tell your health care provider about any blood in your urine, even if it is painless or the blood stops without treatment. Blood in the urine, when it happens and then stops and then happens again, can be a symptom of a very serious condition, including cancer. There is no pain in the initial stages of many urinary cancers. Follow these instructions at home: Medicines ? Take gxis-tek-nbesujp and prescription medicines only as told by your health care provider. ? If you were prescribed an antibiotic medicine, take it as told by your health care provider. Do not stop taking the antibiotic even if you start to feel better. Eating and drinking ? Drink enough fluid to keep your urine clear or pale yellow. It is recommended that you drink 3?4 quarts (2.8?3.8 L) a day. If you have been diagnosed with an infection, it is recommended that you drink cranberry juice in addition to large amounts of water. ? Avoid caffeine, tea, and carbonated beverages. These tend to irritate the bladder. ? Avoid alcohol because it may irritate the prostate (men). General instructions ? If you have been diagnosed with a kidney stone, follow your health care provider's instructions about straining your urine to catch the stone. ? Empty your bladder often. Avoid holding urine for long periods of time. ? If you are female: ? After a bowel movement, wipe from front to back and use each piece of toilet paper only once. ? Empty your bladder before and after sex. ? Pay attention to any changes in your symptoms. Tell your health care provider about any changes or any new symptoms. ? It is your responsibility to get your test results. Ask your health care provider, or the department performing the test, when your results will be ready. ? Keep all follow-up visits as told by your health care provider. This is important. Contact a health care provider if: ? You develop back pain. ? You have a fever. ? You have nausea or vomiting. ? Your symptoms do not improve after 3 days. ? Your symptoms get worse. Get help right away if: ? You develop severe vomiting and are unable take medicine without vomiting. ? You develop severe pain in your back or abdomen even though you are taking medicine. ? You pass a large amount of blood in your urine. ? You pass blood clots in your urine. ? You feel very weak or like you might faint. ? You faint. Summary ? Hematuria is blood in the urine. It has many possible causes. ? It is very important that you tell your health care provider about any blood in your urine, even if it is painless or the blood stops without treatment. ? Take hzfb-kfe-wtzzotz and prescription medicines only as told by your health care provider. ? Drink enough fluid to keep your urine clear or pale yellow. This information is not intended to replace advice given to you by your health care provider. Make sure you discuss any questions you have with your health care provider. Document Released: 03/28/2006 Document Revised: 08/22/2019 Document Reviewed: 04/30/2017 [employer] Patient Education ? 2019 [employer] Normal [facility] UroVysion Fish and Urine Cyt o ([facility])on 07-17-2021 [facility] Method of Extraction Voided Normal [facility] Comment on above: Performed By: #### 1 [id number] ####[facility] [address] [place] [address] [facility] Number of Jars 1 Invalid Interpretation Code [facility] Comment on above: Performed By: #### 1 [id number] ####[facility] [address] [place] [address] [facility] Specimen Urine Normal [facility] Comment on above: Performed By: #### 1 [id number] ####[facility] [address] [place] [address] [facility] Type of Service Global Normal Fish er [facility] Comment on above: Performed By: #### 1 [id number] ####[facility] [address] [place] [address] Urology Office/Clinic Noteon 07-17-2021 Urology Office/Clinic Note Chief Complaint Cysto HPI Staff Rubi is a 66 y/o female here for a Cysto. ABX was taken. History of Present Illness I have reviewed and verified the staff HPI to be accurate for this encounter. Review of Systems ROS - Provider Constitutional: denies weight loss, denies hot flashes. Eyes: denies eye problems. Gastrointestinal: denies nausea, denies vomiting. Cardiovascular: denies chest pain or angina. Integumentary: no dryness Musculoskeletal: denies musculoskeletal symptoms. ENMT: denies otolaryngeal symptoms. Respiratory: no shortness of breath. Heme/Lymph: denies easy bleeding tendency, denies easy bruising tendency. Psychiatric: no confusion, no anxiety. Genitourinary: Urge incontinence. No further gross hematuria. No infections Physical Exam Vitals & Measurements HR: 83(Peripheral) BP: 157/85 HT: 160 cm HT: 160.0 cm General Appearance: alert , no acute distress, well nourished, well developed female. Genitourinary: bladder nonpalpable, no flank pain. Procedure Operative Information Anesthesia Type: Local Procedure: Local Cystoscopy Complications: None Surgical risks, benefits, details of the procedure have been explained to the patient. Full informed consent has been obtained. Intraoperative Information Prepped: Patient is brought back to the endoscopy suite. Patient is placed in supine position. Patient prepped in the usual fashion with Betadine solution. 2% Xylocaine Jelly is placed per Urethra. After waiting several minutes, the Cystoscope is introduced. The Urethra is: Pale without stricture The Bladder:'cystitis cystica scattered with pale inflammation. The Ureteral orifices: Show efflux of clear urine Removal: Cystoscope is removed. The patient tolerated it well. Vaginal examination: Vaginal mucosa: There is moderate vaginal atrophy The urethra is patent. There are no masses or lesions. Prominent urethral mucosa. Mild TTP ventral surface, sling scar tissue is palpable but mesh is not exposed or visualized with scope. There is no urethral hypermobility and CHENCHO is no seen. She is able to correctly identify her pelvic muscles weak recruitment No significant anterior pr posterior prolapse. Mild posterior vaginal wall tender to palpation Postoperative Information Patient is discharged home with antibiotic coverage. Follow up arranged. Assessment/Plan 1. 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 Ocampo - unable to tell difference in urinary symptoms following dilation S/P TVT Sling by Dr. Ocampo - urge following sling She denies recurring urinary infections, having issues with persistent yeast infection despite PO and topical meds- recommend evaluation by Gynecology She wears padding, unaware when she leaks She admits to only voiding twice during the day. Did not take Myrbetriq due to the palma. Gave pt a card where she will be able the get the medication at a lower cost. If she cannot get the medication she will call the office -New prescription for Myrbetriq and estrogen cream sent -Kegel exercises -No evidence of urethral sling erosion. Ordered: CT Urogram 3. Gross hematuria (R31.0: Gross hematuria) No recurrence since last seen. History of noncompliance with Certified letter provided, now called to reschedule cystoscopy. Discussed importance of follow-up. cysto today without obvious malignancy.F /u FISH/CYTOL today. CTU reordered -patient did not get done Orders: estradiol topical, See Instructions, 42.5 gm, Refill(s) 3, Apply pea size amount to vaginal area three times a week, [facility]/pharmacy #[id number], 160, cm, 07/17/21 11:50:00 EDT, Height/Length Dosing mirabegron, 25 mg = 1 tab(s), Oral, Daily, X 30 day(s), # 30 tab(s), Refills(s) 6, Pharmacy: [facility]/pharmacy #[id number], 160, cm, 07/17/21 11:50:00 EDT, Height/Length Dosing Follow-up No qualifying data available Patient Education Hematuria, Adult Vitor Piedra personally scribed for Dr. Cheema 07/17/2021 12:30:11. . Documentation recorded by the Vitor iverson , accurately reflects the services(s) I performed and decisions made by me. Authenticated by Dr. Cheema on 07/17/2021 12:55:49. Problem List/Past Medical History Ongoing Asymptomatic microscopic hematuria Former smoker Gross hematuria Incontinence without sensory awareness Historical No qualifying data Procedure/Surgical History Cystoscopy (07/17/2021). Medications ergocalciferol 50,000 intl units Cap Estrace 0.1 mg/g Cream, See Instructions, 3 refills losartan 100 mg Tab Lyrica 150 mg Cap, Oral, BID Myrbetriq 25 mg oral tablet, extended release, 25 mg= 1 tab(s), Oral, Daily, 6 refills Xarelto 20 mg oral tablet, 20 mg= 1 tab(s) Allergies Percocet (Palpitations) oxyCODONE (Palpitations) Social History Tobacco (more content not included)... Normal [facility] Comment on above: Result Comment: Elec tronically Signed By: Deneen Cheema MD\.br\Date and Time Signed: 07/17/21 12:56 EDT\.br\Electronically Co-Signed By: Vitor Holley\.br\Date and Time Co-Signed: 07/17/21 12:30 EDT Pre-Certification Formon Pre-Certification Form [id number] [id number]:127 Normal [facility] Complete Blood Counton 07-09 Erythrocyte distribution width (RBC) [Ratio] 14.3 % Normal 11.0-15.0 [facility] Comment on above: Performed By: #### V ITD, FE Prof, LIPD, CMP, CBC #### [facility] [address] [place], [place] [id number] Hematocrit (Bld) [Volume fraction] 41.7 % Normal 35.0-47.0 [facility] Comment on above: Performed By: #### V ITD, FE Prof, LIPD, CMP, CBC #### [facility] [address] [place], [place] [id number] Hemoglobin (Bld) [Mass/Vol] 13.0 g/dL Normal 11.6-15.5 [facility] Comment on above: Performed By: #### V ITD, FE Prof, LIPD, CMP, CBC #### [facility] [address], [place] [id number] MCH (RBC) [Entitic mass] 28.7 pg Normal 27.0-33.0 [facility] Comment on above: Performed By: #### V ITD, FE Prof, LIPD, CMP, CBC #### [facility] [address] [place], [place] [id number] MCHC (RBC) [Mass/Vol] 31.2 g/dL Low 32.0-36.0 [facility] Comment on above: Performed By: #### V ITD, FE Prof, LIPD, CMP, CBC #### [facility] [address], [place] [id number] MCV (RBC) [Entitic vol] 92 fL Normal 80-100 [address] [facility] Comment on above: Performed By: #### V ITD, FE Prof, LIPD, CMP, CBC #### [facility] [address], [place] [id number] Platelet mean volume (Bld) [Entitic vol] 10.40 fL Normal 7.50-12.50 [facility] Comment on above: Performed By: #### V ITD, FE Prof, LIPD, CMP, CBC #### [facility] [address], [place] [id number] Platelets (Bld) [#/Vol] 222 10*3/uL Normal 140-400 [facility] Specialist Comment on above: Performed By: #### V ITD, FE Prof, LIPD, CMP, CBC #### [facility] [address], [place] [id number] RBC (Bld) [#/Vol] 4.53 10*6/uL Normal 3.90-5.20 [facility] Specialist Comment on above: Performed By: #### V ITD, FE Prof, LIPD, CMP, CBC #### [facility] [address], [place] [id number] RDW-SD 48.4 fL Normal 37.0-50.0 [facility] Specialist Comment on above: Performed By: #### V ITD, FE Prof, LIPD, CMP, CBC #### [facility] [address], [place] [id number] WBC (Bld) [#/Vol] 5.5 10*3/uL Normal 3.8-11.0 [facility] Director Comment on above: Performed By: #### V ITD, FE Prof, LIPD, CMP, CBC #### [facility] [address], [place] [id number] Comprehensive Metabolic Pane aby 07-09-2021 Albumin [Mass/Vol] 4.2 g/dL Normal 3.6-5.1 [facility] Director Comment on above: Performed By: #### V ITD, FE Prof, LIPD, CMP, CBC #### [facility] [address], [place] [id number] Albumin/Globulin [Mass ratio] 2.5 {ratio} Normal 1.0-2.5 [facility] Comment on above: Performed By: #### V ITD, FE Prof, LIPD, CMP, CBC #### [facility] [address], [place] [id number] ALP [Catalytic activity/Vol] 72 U/L Normal 35-119 [facility] Specialist Comment on above: Performed By: #### V ITD, FE Prof, LIPD, CMP, CBC #### [facility] [address], [place] [id number] ALT [Catalytic activity/Vol] 13 U/L Normal 6-33 [facility] Specialist Comment on above: Result Comment: 03/11 Female reference range changed. Performed By: #### V ITD, FE Prof, LIPD, CMP, CBC #### [facility] [address], [place] [id number] Anion gap [Moles/Vol] 16 mmol/L Normal 12-20 [facility] Comment on above: Result Comment: Effdarlyn ctive 04/16/2019 reference range changed. Performed By: #### V ITD, FE Prof, LIPD, CMP, CBC #### [facility] [address], [place] [id number] AST [Catalytic activity/Vol] 16 U/L Normal 9-34 [facility] Comment on above: Performed By: #### V ITD, FE Prof, LIPD, CMP, CBC #### [facility] [address], [place] [id number] Bilirubin [Mass/Vol] 0.38 mg/dL Normal 0.30-1.20 [facility] Comment on above: Performed By: #### V ITD, FE Prof, LIPD, CMP, CBC #### [facility] [address], [place] [id number] BUN/CREA 21 Ratio Normal 6-22 [facility] Comment on above: Performed By: #### V ITD, FE Prof, LIPD, CMP, CBC #### [facility] [address], [place] [id number] Calcium [Mass/Vol] 9.1 mg/dL Normal 8.6-10.2 [facility] Comment on above: Performed By: #### V ITD, FE Prof, LIPD, CMP, CBC #### [facility] [address], [place] [id number] Chloride [Moles/Vol] 106 mmol/L Normal 98-107 [facility] Comment on above: Performed By: #### V ITD, FE Prof, LIPD, CMP, CBC #### [facility] [address], [place] [id number] CO2 [Moles/Vol] 24 mmol/L Normal 20-31 [facility] Comment on above: Performed By: #### V ITD, FE Prof, LIPD, CMP, CBC #### [facility] [address], [place] [id number] Creatinine [Mass/Vol] 0.8 mg/dL Normal 0.6-1.4 [facility] Comment on above: Performed By: #### V ITD, FE Prof, LIPD, CMP, CBC #### [facility] [address], [place] [id number] eGFRAA 85 mL/min/1.73m2 Normal >60 [facility] Director Comment on above: Performed By: #### V ITD, FE Prof, LIPD, CMP, CBC #### [facility] [address], [place] [id number] eGFRNAA 70 mL/min/1.73m2 Normal >60 [facility] Director Comment on above: Performed By: #### V ITD, FE Prof, LIPD, CMP, CBC #### [facility] [address], [place] [id number] Globulin (S) [Mass/Vol] 1.7 g/dL Low 1.9-3.7 [facility] Specialist Comment on above: Performed By: #### V ITD, FE Prof, LIPD, CMP, CBC #### [facility] [address], [place] [id number] Glucose [Mass/Vol] 72 mg/dL Normal 65-99 [facility] Comment on above: Result Comment: For FASTING Glucose --- ADA reference ranges: Normal 65-99 mg/dl Prediabetes 100-125 Diabetes >/= 126 Performed By: #### V ITD, FE Prof, LIPD, CMP, CBC #### [facility] [address], [place] [id number] Potassium [Moles/Vol] 4.4 mmol/L Normal 3.5-5.5 [facility] Director Comment on above: Performed By: #### V ITD, FE Prof, LIPD, CMP, CBC #### [facility] [address], [place] [id number] Protein [Mass/Vol] 5.9 g/dL Low 6.1-8.1 [facility] Comment on above: Performed By: #### V ITD, FE Prof, LIPD, CMP, CBC #### [facility] [address], [place] [id number] Sodium [Moles/Vol] 142 mmol/L Normal 135-146 [facility] Comment on above: Performed By: #### V ITD, FE Prof, LIPD, CMP, CBC #### [facility] [address], [place] [id number] Urea nitrogen [Mass/Vol] 17 mg/dL Normal 7-25 [facility] Director Comment on above: Performed By: #### V ITD, FE Prof, LIPD, CMP, CBC #### [facility] [address], [place] [id number] Iron Profileon 07-09-2021 %FESAT 31 % Normal 11-50 [facility] Director Comment on above: Performed By: #### V ITD, FE Prof, LIPD, CMP, CBC #### [facility] [address], [place] [id number] FE 70 ug/dL Normal 40-190 [facility] Director Comment on above: Result Comment: Refe rence range change 02/25/2017. Prior reference range F 37-145 ug/dL, M 59-158 ug/dL. Performed By: #### V ITD, FE Prof, LIPD, CMP, CBC #### [facility] [address], [place] [id number] TIBC 227 ug/dL Low 250-450 [facility] Director Comment on above: Performed By: #### V ITD, FE Prof, LIPD, CMP, CBC #### [facility] [address], [place] [id number] UIBC 157 ug/dL Normal 112-347 [facility] Specialist Comment on above: Performed By: #### V ITD, FE Prof, LIPD, CMP, CBC #### [facility] [address], [place] [id number] Lipid Panelon 07-09-2021 Cholesterol [Mass/Vol] 204 mg/dL High 125-200 [facility] Comment on above: Result Comment: Low risk < 200mg/dL Borderline risk 201-239 mg/dl High risk > or equal to 240 Performed By: #### V ITD, FE Prof, LIPD, CMP, CBC #### [facility] [address], [place] [id number] Cholesterol in HDL [Mass/Vol] 73 mg/dL Normal >40 [facility] Director Comment on above: Result Comment: High Cardiovascular Risk HDL <40 mg/dL Low Cardiovascular Risk HDL > or equal to 60 mg/dl Performed By: #### V ITD, FE Prof, LIPD, CMP, CBC #### [facility] [address], [place] [id number] Cholesterol in LDL [Mass/Vol] 114 mg/dL Normal [facility] Comment on above: Result Comment: LDL ATP III CLASSIFICATION LDL less than 100 mg/dl Optimal LDL 100-129 mg/dl Near or above optimal LDL 130-159 Borderline high LDL 160-189 High LDL greater than 189 mg/dl Very High Performed By: #### V ITD, FE Prof, LIPD, CMP, CBC #### [facility] [address], [place] [id number] Cholesterol in VLDL [Mass/Vol] 17 mg/dL Normal [facility] Comment on above: Performed By: #### V ITD, FE Prof, LIPD, CMP, CBC #### [facility] [address], [place] [id number] Cholesterol.total/Cholest she in HDL [Mass ratio] 3 {ratio} Normal [facility] Comment on above: Performed By: #### V ITD, FE Prof, LIPD, CMP, CBC #### [facility] [address], [place] [id number] Triglyceride [Mass/Vol] 87 mg/dL Normal 30-150 [facility] Comment on above: Result Comment: TRIG ATPIII CLASSIFICATIONS TRIG less than 150 mg/dl Normal TRIG 150-199 mg/dl Borderline High TRIG 200-500 mg/dl High TRIG greather than 500 mg/dl Very High Performed By: #### V ITD, FE Prof, LIPD, CMP, CBC #### [facility] [address], [place] [id number] Vitamin B12on 07-09-2021 Cobalamin (Vitamin B12) [Mass/Vol] 1947 pg/mL High 211-946 [facility] Comment on above: Performed By: #### B 12 #### [facility] [address], [place] [id number] Vitamin D 25-OHon 07-09-2021 VIT D 25 OH 87 ng/ml Normal >29 [facility] Specialist Comment on above: Result Comment: Beverly min D Status Deficiency <20 ng/mL Insufficiency 20-29 ng/mL Optimal 30-100 ng/mL Possible Toxicity >=150 ng/mL Performed By: #### V ITD, FE Prof, LIPD, CMP, CBC #### [facility] [address] [place] [id number] [facility] [address] [facility] July 08, 2021 [facility] [address] [place] [address] [employer] 1955 Dear Rubi, I am corresponding with you by certified mail because of your diagnosis of hematuria which is blood in the urine. It was recommended that you have a cystoscopy but you cancelled your procedure on 05/01/21. My office has been trying to reach you on 05/26/21, 06/08/21 and sent a letter on 06/11/21 and we have not gotten a response from you. Please contact my office at your earliest convenience and we will gladly this get rescheduled for you. I cannot be responsible for your care if you do not complete testing recommended by me. Sincerely, Dr. Deneen Cheema MD [facility] [address] [place] [address] [facility] Tobacco Screening.on 022 Adult depression screening assessment No [facility] [employer] 250 DO Work Phone: [phone] Adult depression screening assessment Yes [facility] 250 DO Work Phone: [phone] Fall risk assessment a) No falls within the last year [facility] 250 DO Work Phone: [phone] Tobacco use status CP b) No [facility] 250 DO Work Phone: [phone] Tobacco Screening. 2-More than half the days [facility] 250 DO Work Phone: [phone] Tobacco Screening. 0-Not at all [facility] 250 DO Work Phone: [phone] Tobacco Screening. 3-Nearly every day [facility] [place] 250 DO Work Phone: Tobacco Screening. Not difficult at all [facility] [place] 250 DO Work Phone: Insurance Correspondenceon 0 06-12-2021 Insurance Correspondence [id number]# 1.00CD:127 [facility] Patient Letter [facility]TMCon [address] [facility] June 11, 2021 [address] [place] [address] [employer] 1955 Dear Rubi, I am reaching you by mail due to your medical condition of microscopic hematuria. You were scheduled for a cystoscopy on 05/04/21 but you had to cancel. we have tried reaching you via phone and have left voicemail messages on 05/21/21 and 05/26/21 with no response. Please contact my office at your earliest convenience and we will gladly get you cystoscopy rescheduled. Thank you for your prompt attention to this matter. Sincerely, Dr. Deneen Cheema MD [facility] [address] [place] [address] [facility] Pre-Certification Formon Pre-Certification Form [id number] .[id number]:127 [facility] Physician Referralon 022 Physician Referral [id number] .00CD:127 [facility] Ambulatory Clinical Summaryo n 04-22-2021 Ambulatory Clinical Summary {[id number] [facility] Patient Educationon 04-22-19 Patient Education Nutrition BMI for Adults Body mass index (BMI) is a number that is calculated from a person's weight and height. BMI may help to estimate how much of a person's weight is composed of fat. BMI can help identify those who may be at higher risk for certain medical problems. How is BMI used with adults? BMI is used as a screening tool to identify possible weight problems. It is used to check whether a person is obese, overweight, healthy weight, or underweight. How is BMI calculated? BMI measures your weight and compares it to your height. This can be done either in [place] or metric measurements. Note that charts are available to help you find your BMI quickly and easily without having to do these calculations yourself. To calculate your BMI in [place] measurements, your health care provider will: 1. Measure your weight in pounds (lb). 2. Multiply the number of pounds by 703. ? For example, for a person who weighs 180 lb, multiply that number by 703, which equals 126,540. 3. Measure your height in inches (in). Then multiply that number by itself to get a measurement called inches squared. ? For example, for a person who is 70 in tall, the inches squared measurement is 70 in x 70 in, which equals 4900 inches squared. 4. Divide the total from Step 2 (number of lb x 703) by the total from Step 3 (inches squared): 126,540 ? 4900 = 25.8. This is your BMI. To calculate your BMI in metric measurements, your health care provider will: 1. Measure your weight in kilograms (kg). 2. Measure your height in meters (m). Then multiply that number by itself to get a measurement called meters squared. ? For example, for a person who is 1.75 m tall, the meters squared measurement is 1.75 m x 1.75 m, which is equal to 3.1 meters squared. 3. Divide the number of kilograms (your weight) by the meters squared number. In this example: 70 ? 3.1 = 22.6. This is your BMI. How is BMI interpreted? To interpret your results, your health care provider will use BMI charts to identify whether you are underweight, normal weight, overweight, or obese. The following guidelines will be used: ? Underweight: BMI less than 18.5. ? Normal weight: BMI between 18.5 and 24.9. ? Overweight: BMI between 25 and 29.9. ? Obese: BMI of 30 and above. Please note: ? Weight includes both fat and muscle, so someone with a muscular build, such as an athlete, may have a BMI that is higher than 24.9. In cases like these, BMI is not an accurate measure of body fat. ? To determine if excess body fat is the cause of a BMI of 25 or higher, further assessments may need to be done by a health care provider. ? BMI is usually interpreted in the same way for men and women. Why is BMI a useful tool? BMI is useful in two ways: ? Identifying a weight problem that may be related to a medical condition, or that may increase the risk for medical problems. ? Promoting lifestyle and diet changes in order to reach a healthy weight. Summary ? Body mass index (BMI) is a number that is calculated from a person's weight and height. ? BMI may help to estimate how much of a person's weight is composed of fat. BMI can help identify those who may be at higher risk for certain medical problems. ? BMI can be measured using [place] measurements or metric measurements. ? To interpret your results, your health care provider will use BMI charts to identify whether you are underweight, normal weight, overweight, or obese. This information is not intended to replace advice given to you by your health care provider. Make sure you discuss any questions you have with your health care provider. Document Released: 12/07/2004 Document Revised: 03/10/2018 Document Reviewed: 02/08/2018 Impraise Patient Education ? 2020 [employer]. Obstetrics and Gynecology Overactive Bladder, Adult Overactive bladder refers to a condition in which a person has a sudden need to pass urine. The person may leak urine if he or she cannot get to the bathroom fast enough (urinary incontinence). A person with this condition may also wake up several times in the night to go to the bathroom. Overactive bladder is associated with poor nerve signals between your bladder and your brain. Your bladder may get the signal to empty before it is full. You may also have very sensitive muscles that make your bladder squeeze too soon. These symptoms might interfere with daily work or social activities. What are the causes? This condition may be associated with or caused by: ? Urinary tract infection. ? Infection of nearby tissues, such as the prostate. ? Prostate enlargement. ? Surgery on the uterus or urethra. ? Bladder stones, inflammation, or tumors. ? Drinking too much caffeine or alcohol. ? Certain medicines, especially medicines that get rid of extra fluid in the body (diuretics). ? Muscle or nerve weakness, especially from: ? A spina (more content not included)... Normal [facility] Urology Office/Clinic Noteon 04-22-2021 Urology Office/Clinic Note Chief Complaint incontinence HPI Staff New patient Referral per Dr. Henry due to stress incontinence patient is currently taking oxybutynin 5mg BID states it is not working as well as it did when she started it , pt. did have a sling [place] [address] Ocampo, has also undergone pelvic floor therapy with little relief pt. states she has been trying to get rid of a yeast infection for a few months and has also noticed a fould odor Dysuria: no Incomplete bladder emptying: no Hematuria: pt. states she has noticed toilet water will look a little pink intermittently Frequency: no Urgency: no Nocturia: no Stream: good stream in the start slow towards the end Leaking: yes Post void dripping: no Wearing pads/ Depends: Urge incontinence: no Stress incontinence: no Incontinence without Sensory Awareness: pt. states she does not know when she is having leakage Abdominal pain: no Flank pain: low back pain intermittently History of Present Illness Tests Reviewed: Reviewed UA. I have reviewed the previous health record information and history for this patient from Dr. Henry I have reviewed and verified the staff HPI to be accurate for this encounter. There have been no associated fever, chills, flank pain, or blood in the urine. Denies any urinary infections since last encounter. Review of Systems ROS - Provider Constitutional: denies weight loss, denies hot flashes. Eyes: denies eye problems. Gastrointestinal: denies nausea, denies vomiting. Cardiovascular: denies chest pain or angina. Integumentary: no dryness Musculoskeletal: denies musculoskeletal symptoms. ENMT: denies otolaryngeal symptoms. Respiratory: no shortness of breath. Heme/Lymph: denies easy bleeding tendency, denies easy bruising tendency. Psychiatric: no confusion, no anxiety. Genitourinary: denies vaginal discharge, denies incontinence, denies dysuria, denies hematuria, denies urinary frequency, denies amenorrhea, denies menorrhagia, denies abnormal bleeding, denies pelvic pain, denies genital sores, and denies decreased libido. Physical Exam Vitals & Measurements HR: 72(Peripheral) RR: 16 BP: 160/90 HT: 160.0 cm HT: 160 cm General Appearance: alert , no acute distress, well nourished, well developed female. Head: normocephalic . Eyes: normal orbit and globe. ENMT: normal examination of external ears. Chest: Lungs CTA, respirations non labored . Cardiovascular: regular rate and rhythm. Abdomen: soft, non distended, no tenderness, no mass or organomegaly, no hernia. Genitourinary: bladder nonpalpable, no flank tenderness. Lymph Nodes: unremarkable palpation of the cervical area. Skin: warm, dry, no bruising. Psychiatric: cooperative, affect appropriate for age, normal judgement, euthymic mood. Assessment/Plan 1. 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 Henry She has had pelvic floor therapy on own with little success She is currently on Oxybutynin 5 mg BID which feels this is no longer working S/P Cysto w/ UD done [address] Ocampo - unable to tell difference in urinary symptoms following dilation S/P TVT Sling by Dr. Ocampo - urge following sling She denies recurring urinary infections, having issues with persistent yeast infection despite PO and topical meds- recommend evaluation by Gynecology She is not sure if she empties all the way - PVR 43 mL She wears padding, unaware when she leaks She admits to only voiding twice during the day. Will stop Oxybutynin and start Myrbetriq 25 mg qd - If too expensive, to call office for trial of another medication (ex Vesicare) Discussed the medication side effects, and the patient will monitor closely for these, as well as for symptom improvement. If severe side effects occur, the medication should be stopped and the office notified. Discussed low estrogen effect and her natural barrier being lowered due to low estrogen effect. Normal symptoms include, dysfunctional urination, painful intercourse, recurrent infections and vaginal dryness. Explained that she does not have to have all of the symptoms but these are the most common. If this is found, estrogen cream may be prescribed to help with this. No history of cancers. -Will order Estrace cream. Apply pea size amount three time a week. -Provided paper education of pelvic floor therapy, pt is unable to go to for formal PFPT due to schedule -Timed voiding -Med changes as above -Discussed weight loss 2. Gross hematuria (R31.0: Gross hematuria) Patient just recently found pink tinge in toilet Discussed options. The patient is aware that a distinct etiology of the hematuria may not be clear upon conclusion of the workup. Will initiate hematuria workup to include upper urinary tract imaging, as well as evaluation of the urinary cells with urine cytology and possible a FISH test. A cystoscopy will be scheduled to rule out lowe (more content not included)... Normal [facility] Comment on above: Result Comment: Elec tronically Signed By: Deneen Cheema MD\.br\Date and Time Signed: 04/22/21 09:55 EST\.br\Electronically Co-Signed By: Kristel Lanza MA\.br\Date and Time Co-Signed: 04/22/21 09:39 EST Physician Referralon 021 Physician Referral [id number] .[id number]:127 Normal [facility] Vital Signs Date Time Vital Sign Value Performing Clinician Facility 12-22-2022 11:01-0400 Body height 160.02 cm Oren Henry Work Phone: [facility] [employer] DO Work Phone: 12-22-2022 11:01-0400 Body mass index (BMI) [Ratio] 35.78 kg/m2 Oren Henry Work Phone: [facility] [employer] 250 DO Work Phone: 12-22-2022 11:01-0400 Body surface area Derived from formula 1.94 m2 Oren Henry Work Phone: [facility] [employer] 250 DO Work Phone: 12-22-2022 11:01-0400 Body weight 91.63 kg Oren Henry Work Phone: [facility] 250 DO Work Phone: 12-22-2022 11:01-0400 Diastolic blood pressure 82 mm[Hg] Oren Henry Work Phone: [facility] 250 DO Work Phone: 12-22-2022 11:01-0400 Heart rate 64 /min Oren Henry Work Phone: [facility] 250 DO Work Phone: 12-22-2022 11:01-0400 Systolic blood pressure 130 mm[Hg] Oren Reddingk Work Phone: [facility] 250 DO Work Phone: 10-28-2022 17:27-0400 Diastolic blood pressure 84 mm[Hg] DO Oren Reddingk Work Phone: [facility] 10-28-2022 17:27-0400 Heart rate 71 /min DO Oren Reddingk Work Phone: [facility] 10-28-2022 17:27-0400 Respiratory rate 18 /min DO Oren Reddingk Work Phone: [facility] 10-28-2022 17:27-0400 SaO2% (BldA) [Mass fraction] 100 % DO Oren Miladisk Work Phone: [facility] 10-28-2022 17:27-0400 Systolic blood pressure 185 mm[Hg] DO Oren Miladisk Work Phone: [facility] 10-28-2022 15:12-0400 Body height 160.02 cm DO Oren Amichak Work Phone: [facility] 10-28-2022 15:12-0400 Body temperature 98.7 [degF] DO Oren Amichak Work Phone: [facility] 07-20-2023 15:12-0400 Body weight 93 kg DO Oren Carl Work Phone: [facility] 10-17-2022 11:38-0400 Body temperature 97.9 [degF] DO Oren Miladisk Work Phone: [facility] 10-17-2022 11:38-0400 Diastolic blood pressure 82 mm[Hg] DO Oren [place] Work Phone: [facility] 10-17-2022 11:38-0400 Heart rate 70 /min DO Oren Carl Work Phone: [facility] 10-17-2022 11:38-0400 Respiratory rate 18 /min DO Oren Henry Work Phone: [facility] 10-17-2022 11:38-0400 SaO2% (BldA) [Mass fraction] 99 % DO Oren Henry Work Phone: [facility] 10-17-2022 11:38-0400 Systolic blood pressure 125 mm[Hg] DO Oren Henry Work Phone: [facility] 10-17-2022 05:21-0400 Body weight 93.1 kg DO Oren Carl Work Phone: [facility] 10-15-2022 19:36-0400 Body height 160.02 cm DO Oren Henry Work Phone: [facility] 03-17-2022 09:55-0500 Body height 160.02 cm Oren Henry Work Phone: [facility] 250 DO Work Phone: 03-17-2022 09:55-0500 Body mass index (BMI) [Ratio] 36.49 kg/m2 Oren Reddingk Work Phone: [facility] 250 DO Work Phone: 03-17-2022 09:55-0500 Body surface area Derived from formula 1.96 m2 Oren Henry Work Phone: [facility] 250 DO Work Phone: 03-17-2022 09:55-0500 Body weight 93.44 kg Oren Henry Work Phone: [facility] 250 DO Work Phone: 03-17-2022 09:55-0500 Diastolic blood pressure 88 mm[Hg] Oren Henry Work Phone: [facility] 250 DO Work Phone: 03-17-2022 09:55-0500 Heart rate 60 /min Oren Henry Work Phone: [facility] 250 DO Work Phone: 03-17-2022 09:55-0500 Systolic blood pressure 124 mm[Hg] Oren Henry Work Phone: [facility] 250 DO Work Phone: 10-16-2021 09:09-0400 Blood Pressure Location Deneen Lue [facility] [place] 10-16-2021 09:09-0400 Diastolic blood pressure 87 mm[Hg] Deneen Lue [facility] [place] 10-16-2021 09:09-0400 Heart rate 78 /min Deneen Lue [facility] [place] 10-16-2021 09:09-0400 Systolic blood pressure 144 mm[Hg] Deneen Lue [facility] [place] 07-17-2021 11:50-0400 Blood Pressure Location Deneen Lue [facility] [place] 07-17-2021 11:50-0400 Diastolic blood pressure 85 mm[Hg] Deneen Lue [facility] [place] 07-17-2021 11:50-0400 Heart rate 83 /min Deneen Lue [facility] [place] 07-17-2021 11:50-0400 Systolic blood pressure 157 mm[Hg] Deneen Lue [facility] [place] 07-02-2021 09:54-0400 Body height 160.02 cm Oren Henry Work Phone: [facility] 250 DO Work Phone: 07-02-2021 09:54-0400 Body mass index (BMI) [Ratio] 35.78 kg/m2 Oren Henry Work Phone: [facility] 250 DO Work Phone: 07-02-2021 09:54-0400 Body surface area Derived from formula 1.94 m2 Oren Henry Work Phone: [facility] 250 DO Work Phone: 07-02-2021 09:54-0400 Body weight 91.63 kg Oren Henry Work Phone: [facility] 250 DO Work Phone: 07-02-2021 09:54-0400 Diastolic blood pressure 65 mm[Hg] Oren Henry Work Phone: [facility] 250 DO Work Phone: 07-02-2021 09:54-0400 Heart rate 71 /min Oren Henry Work Phone: [facility] 250 DO Work Phone: 07-02-2021 09:54-0400 Systolic blood pressure 122 mm[Hg] Oren Henry Work Phone: [facility] 250 DO Work Phone: 07-02-2021 09:54-0400 10 1 Oren Henry Work Phone: [facility] 250 DO Work Phone: Comment on above: PHQ-9 TS Encounters Encounter Date Encounter Type Care Provider Facility Start: 06-13-2023 End: 06-14-2023 ambulatory OREN Negrete AMICAROLANN Not Available Start: 06-01-2023 End: 06-02-2023 ambulatory OREN Negrete AMIJERRIMarco Not Available Start: 05-19-2023 Refill Ann Marie Donahue on RN Work Phone: [facility] Comment on above: Fibromyalgia Start: 03-14-2023 End: 03-14-2023 ambulatory OREN Negrete AMICAROLANN Not Available Start: 12-22-2022 Office outpatient vi sit 25 minutes Oren Negrete Amicarolann Work Phone: [facility] 250 DO Work Phone: Start: 12-22-[address] Davin Hobbs Facility: Start: 11-18-2022 End: 11-18-2022 ambulatory Juvencio Conroy Facility:[facility] Start: 11-18-2022 End: 11-18-2022 ambulatory DO Oren Henry Work Phone: [facility] Work Phone: Start: 11-18-2022 End: 11-18-2022 Patient encounter procedure DO Oren Henry Work Phone: [facility] [place] Work Phone: Start: 10-28-2022 End: 10-28-2022 Emergency department patient visit Latosha Ocampo Facility:[facility] Start: 10-28-2022 End: 10-28-2022 Emergency department patient visit DO Oren Henry Work Phone: [facility]-Emergency Room Work Phone: Start: 10-17-[address] Oren Henry Facility:[id number] Start: 10-16-[address] Oren Henry Facility:[id number] Start: 10-15-2022 End: 10-17-2022 ambulatory Roni Blanton Facility:[facility] Start: 10-15-2022 End: 10-17-2022 Evaluation and management of inpatient DO Oren Henry Work Phone: [facility] Work Phone: Start: 10-15-2022 End: 10-17-2022 observation encounter DO Oren Henry Work Phone: [facility] Work Phone: Start: 09-28-2022 End: 03-14-2023 Patient encounter procedure Ann Marie Bradshaw RN Work Phone: [facility] Start: 06-16-2022 End: 06-16-2022 ambulatory Davin Hensonim Facility:[facility] Start: 06-16-2022 End: 06-16-2022 ambulatory DO Oren Henry Work Phone: [facility] Work Phone: Start: 06-16-2022 End: 06-16-2022 Patient encounter procedure DO Oren Henry Work Phone: [facility] Start: 06-11-2022 End: 06-12-[address] OREN HENRY Facility:[facility]1 Start: 05-14-2022 End: 05-14-[address] DOCTOR NEELY Facility:[facility]1 Start: 03-17-2022 Office outpatient vi sit 25 minutes Oren Henry Work Phone: [facility] 250 DO Work Phone: Start: 03-17-[address] Davin Hobbs Facility:[id number] Start: 03-09-2022 End: 03-09-2022 ambulatory DO Oren Henry Work Phone: [facility] Work Phone: Start: 03-09-2022 End: 03-09-2022 Patient encounter procedure DO Oren Henry Work Phone: [facility] Start: 03-08-[address] Oren Henry Facility:[id number] Start: 03-07-2022 End: 03-07-2022 ambulatory MR ZAIDA SALGUERO . Facility:[facility]1 Start: 01-22-2022 End: 01-23-[address] CHRISTINA PEÑA Facility:H1 Start: 01-12-2022 End: 01-13-[address] CHRISTINA PEÑA Facility:[facility]1 Start: 01-11-2022 End: 01-12-[address] CHRISTINA PEÑA Facility:H1 Start: 01-06-2022 End: 01-07-[address] CHRISTINA PEÑA Facility:H1 Start: 12-08-2021 End: 12-09-[address] CHRISTINA PEÑA Facility:H1 Start: 11-30-2021 End: 12-01-[address] CHRISTINA PEÑA Facility:H1 Start: 11-24-2021 End: 11-25-[address] CHRISTINA PEÑA Facility:H1 Start: 11-17-2021 End: 11-18-[address] CHRISTINA PEÑA Facility:H1 Start: 10-28-2021 AUDIT Oren doran Work Phone: [facility] 250 DO Work Phone: Start: 10-16-2021 End: 10-16-2021 Patient encounter procedure Deneen LeaNacho Deni [facility] [place] Start: 10-05-2021 End: 10-06-[address] CHRISTINA PEÑA Facility:H1 Start: 08-15-2021 End: 08-16-[address] CHRISTINA PEÑA Facility:H1 Start: 07-17-2021 End: 07-17-2021 Patient encounter procedure Deneen Cheema [facility] [place] Start: 07-02-2021 Office outpatient vi sit 25 minutes Oren Henry Work Phone: [facility] 250 DO Work Phone: Start: 06-26-2021 Rx Renewal Oren doran Work Phone: [facility] 250 DO Work Phone: Start: 06-01-2018 Patient encounter procedure CRISTELA KATH Facility:[facility] Start: 05-08-2018 Patient encounter procedure CRISTELA KATH Facility:[facility] Start: 01-24-2018 Patient encounter procedure CRISTELA KATH Facility:[facility] Start: 10-28-2017 Patient encounter procedure CRISTELA KATH Facility:[facility] Start: 08-23-2017 Patient encounter procedure CRISTELA KATH Facility:[facility] Start: 08-18-2017 Patient encounter procedure OREN HENRY Facility:[facility] Procedures Date Procedure Procedure Detail Performing Clinician Start: 01-01-2023 H/O: surgery History of gas tric stapling Ann Marie Bradshaw RN Work Phone: Start: 11-18-2022 US scan of gallbladder DO Oren Henry Work Phone: Start: 10-28-2022 CT of head without contrast DO Oren Henry Work Phone: Start: 10-28-2022 CT of abdomen and pe lvis without contrast DO Oren Henry Work Phone: Start: 10-17-2022 Screening for occult blood in feces DO Oren Henry Work Phone: Start: 10-16-2022 Urine culture DO Oren Henry Work Phone: Start: 08-07-2021 Mammography Ann Marie benitez RN Work Phone: Start: 07-17-2021 Cystoscopy Deneen Cheema Start: 04-22-2015 Colonoscopy Ann Marie benitez RN Work Phone: Appendectomy Oren Penelope brian Work Phone: Arthroplasty of knee Oren Henry Work Phone: Colonoscopy Oren brian Work Phone: Hemorrhoidectomy Oren zarate Work Phone: Hysterectomy Oren brian Work Phone: Implantation of patient-activated cardiac event recorder Oren Henry Work Phone: Comment on above: Patient activated ca rdiac event recorder implementation; Operation on lung Oren cordova Work Phone: Operation on stomach Oren Henry Work Phone: Comment on above: Gastric surgery for morbid obesity gastric stapling; Prosthetic arthropla sty of the hip Oren Henry Work Phone: Tonsillectomy Oren doran Work Phone: Total replacement of hip Maycol michael Henry Work Phone: Plan of Treatment Date Care Activity Detail Author Start: 04-22-2025 Screening for malignant neoplasm of colon [facility] Start: 09-29-2023 Medicare Annual Wellness (AWV) Medicare Annual Wellness (AWV) [facility] Start: 09-13-2023 FUV, Provider: Davin Hobbs, Status: Pen, Time: 11:30 AM FUV, Provider: Davin Hobbs, Status: Pen, Time: 11:30 AM [facility] [facility] DO Work Phone: Start: 09-12-2023 End: 09-12-2023 Patient encounter procedure 09/12/2023 1:30 PM EDT Office Visit [facility] [address] [place] [address] Oren Henry, DO [address] [place] [address] [facility] Start: 06-13-2023 End: 06-13-2023 Patient encounter procedure 06/13/2023 1:30 PM EST Office Visit [facility] [address] [place] [address] Oren Henry, DO [address] [place] [address] [facility] Start: 06-13-2023 End: 06-13-2023 Professional / ancillary services management 06/13/2023 12:30 PM EST Ancillary Procedure [facility]AST [address] [place] [id number] [facility] Start: 06-10-2023 Pneumococcal Vaccine: 65+ Years (3 - PPSV23 or PCV20) Pneumococcal Vaccine: 65+ Years (3 - PPSV23 or PCV20) [facility] Start: 12-22-2022 FUV, Provider: Davin Hobbs, Status: Pen, Time: 10:50 AM FUV, Provider: Davin Hobbs, Status: Pen, Time: 10:50 AM [facility] 250 DO Work Phone: Start: 10-17-2022 [facility] Start: 10-16-2022 Urine culture Urine Culture [facility] Start: 10-16-2022 Referral to dispute resolution specialist [facility] Start: 10-16-2022 [facility] Start: 10-15-2022 Hospital admission [facility] Start: 08-07-2022 Screening for malignant neoplasm of breast Mammogram [facility] Start: 03-17-2022 FUV, Provider: Davin Hobbs, Status: Pen, Time: 9:50 AM FUV, Provider: Davni Hobbs, Status: Pen, Time: 9:50 AM [facility] Work Phone: Start: 07-02-2021 FUV, Provider: Davin Hobbs, Status: Pen, Time: 9:40 AM FUV, Provider: Davin Hobbs, Status: Pen, Time: 9:40 AM [facility] Work Phone: Start: 1955 Screening for malignant neoplasm of colon [facility] Patient Education [facility] Work Phone: Patient referral [facility] Work Phone: Immunizations Immunization Date Immunization Notes Care Provider Rosie calderón 12-28-2022 Influenza, Seasonal, Quadrivalent, Adjuvanted Ann Marie Bradshaw RN Work Phone: [facility] 12-24-2021 Fluzone High-Dose Quadrivalent 0.7 ML Intramuscular Suspension Prefilled Syringe Oren Henry Work Phone: [facility] 250 DO Work Phone: 12-24-2021 Moderna Bivalent [facility] Vaccination Ann Marie Bradshaw RN Work Phone: [facility] 12-24-2021 Pfizer COVID-19 Vac Bivalent 30 MCG/0.3ML Intramuscular Suspension Oren Henry Work Phone: [facility] 250 DO Work Phone: 09-29-2021 Comirnaty 30 MCG/0.3 ML Intramuscular Suspension Oren Henry Work Phone: [facility] 250 DO Work Phone: 05-04-2021 Pfizer-BioNTHOTPOTATO MEDIA COVI D-19 Vacc 30 MCG/0.3ML Intramuscular Suspension Oren Negrete Amicarolann Work Phone: [place] [address] DO Work Phone: 01-28-2021 influenza, high dose seasonal, preservative-free Oren Penelope Henry Work Phone: [place] [address] DO Work Phone: 01-24-2021 zoster vaccine recombinant Oren Henry Work Phone: [place] [address] DO Work Phone: 11-14-2020 zoster vaccine recombinant Oren Henry Work Phone: [place] [address] DO Work Phone: 05-20-2020 Pfizer-BioNTech COVI D-19 Vacc 30 MCG/0.3ML Intramuscular Suspension Oren Negrete Amicarolann Work Phone: [place] [address] DO Work Phone: 04-29-2020 Pfizer-BioNTech COVI D-19 Vacc 30 MCG/0.3ML Intramuscular Suspension Oren Negrete Amicarolann Work Phone: [place] [address] DO Work Phone: 04-11-2020 influenza virus vacc ine, unspecified formulation Oren Negrete Amicarolann Work Phone: [place] [address] DO Work Phone: 04-11-2020 influenza, seasonal, injectable Ann Marie Bradshaw RN Work Phone: [facility] 01-14-2020 Seasonal trivalent influenza vaccine, adjuvanted, preservative free Oren Henry Work Phone: [place] [address] DO Work Phone: 02-09-2019 influenza virus vacc ine, unspecified formulation Oren Henry Work Phone: [place] [address] DO Work Phone: 02-09-2019 pneumococcal conjuga te vaccine, 13 valent Oren Henry Work Phone: [place] [address] DO Work Phone: 12-12-2018 Seasonal trivalent influenza vaccine, adjuvanted, preservative free Oren Henry Work Phone: [place] [address] DO Work Phone: 06-09-2018 pneumococcal polysaccharide vaccine, 23 valent Oren Henry Work Phone: [place] [address] DO Work Phone: 01-16-2018 Influenza, injectabl e, [place] Canine Kidney, quadrivalent with preservative Ann Marie Bradshaw RN Work Phone: [facility] 01-09-2018 influenza virus vacc ine, unspecified formulation Oren Henry Work Phone: [place] [address] DO Work Phone: 01-09-2018 pneumococcal polysaccharide vaccine, 23 valent Oren Henry Work Phone: [place] [address] DO Work Phone: 01-04-2017 influenza, seasonal, injectable, preservative free Ann Marie Bradshaw RN Work Phone: [facility] 01-03-2017 influenza, injectabl e, quadrivalent, preservative free Oren Henry Work Phone: [place] [address] DO Work Phone: 12-25-2016 influenza virus vacc ine, unspecified formulation Oren Henry Work Phone: [place] [address] DO Work Phone: 04-13-2016 pneumococcal conjuga te vaccine, 13 valent Oren Henry Work Phone: [facility] 250 DO Work Phone: 02-17-2016 influenza, injectabl e, quadrivalent, preservative free Oren Henry Work Phone: [facility] 250 DO Work Phone: 02-17-2016 zoster vaccine, live Oren Henry Work Phone: [place] [address] DO Work Phone: 01-10-2016 influenza virus vacc ine, unspecified formulation Oren Henry Work Phone: [place] [address] DO Work Phone: 01-10-2016 zoster vaccine, live Oren Henry Work Phone: [place] [address] DO Work Phone: 04-11-2009 influenza virus vacc ine, unspecified formulation Oren Henry Work Phone: [place] [address] DO Work Phone: 03-24-2009 seasonal influenza, intradermal, preservative free Ann Marie Bradshaw RN Work Phone: [facility] Healthcare Payers Date Payer Category Payer Medicare ANTHEM MEDICARE ADVANTAGE ANTHEM MEDICARE ADVANTAGE [id number] 2022-Present [address] [place] [address] [id number] 2021 Self-pay [id number] [facility] 1959 Medicare [id number] 1959 Unknown [id number] 1959 Unknown [id number] 1953 Unknown [id number] 2.16.840.1.764977.3.579.2.355 1953 Unknown [id number] 2.16.840.1.269357.3.579.2.355 1953 Unknown [id number] 2.16.840.1.248223.3.579.2.355 1953 Unknown [id number] 2.16.840.1.264613.3.579.2.355 1953 Unknown [id number] 2.16.840.1.265696.3.579.2.355 1953 Unknown [id number] 2.16.840.1.489127.3.579.2.355 1953 Unknown [id number] 2.16.840.1.351504.3.579.2.593 1953 Unknown [id number] 2.16.840.1.375193.3.579.2.593 1953 Unknown [id number] 2.16.840.1.925963.3.579.2.593 1953 Unknown [id number] 2.16.840.1.269598.3.579.2.593 1953 Unknown [id number] 2.16.840.1.202856.3.579.2.593 1953 Unknown [id number] 2.16.840.1.752377.3.579.2.593 1953 Unknown [id number] 2.16.840.1.787247.3.579.2.593 1953 Unknown [id number] 2.16.840.1.126277.3.579.2.593 1953 Unknown [id number] 2.16.840.1.968264.3.579.2.593 1953 Unknown [id number] 2.16.840.1.811165.3.579.2.593 1953 Unknown [id number] 2.16.840.1.026526.3.579.2.593 1953 Unknown [id number] 2.16.840.1.988883.3.579.2.593 1953 Unknown [id number] 2.16.840.1.880976.3.579.2.593 1953 Unknown [id number] 2.16.840.1.226184.3.579.2.356 1953 Unknown [id number] 2.16.840.1.574114.3.579.2.356 1953 Unknown [id number] 2.840.1.125112.3.579.2.356 1953 Unknown [id number] 2.840.1.770016.3.579.2.356 1953 Unknown [id number] 2.840.1.994438.3.579.2.356 1953 Unknown [id number] 2..840.1.916334.3.579.2.356 1953 Unknown [id number] 2.840.1.974401.3.579.2.1259 1953 Unknown [id number] 2.840.1.884818.3.579.2.1259 1953 Unknown [id number] 2.840.1.263474.3.579.2.1259 1953 Unknown [id number] 2.840.1.799354.3.579.2.1259 Medicaid [place] [facility] [id number] Medicare Medicare [id number] Unknown [id number] Unknown Unknown [id number] 2.16.840.1.701001.3.579.2.531 Unknown [id number] 2.16.840.1.209929.3.579.2.531 Unknown [id number] 2.16.840.1.623691.3.579.2.531 Unknown [id number] 2.16.840.1.038858.3.579.2.531 Unknown [id number] 2.16840.1.127080.3.579.2.531 Social History Date Type Detail Facility Start: 10-21-2022 End: 10-27-2022 Former smoker Former smoker [facility] 250 DO Work Phone: Start: 04-22-2021 End: 10-27-2022 Tobacco smoking status Ex-smoker (finding) [facility] [employer] Start: 10-21-2022 End: 11-04-2022 Sex Assigned At Female [facility] [email or web address] Start: 1955 Sex Assigned At Female F [facility] End: 04-11-1989 History of tobacco use Current smoker [facility] End: 04-11-1989 History of tobacco use Cigarette Smoker [facility] Start: 10-27-2022 Tobacco use and exposure Smokeless tobacco non-user [facility] Start: 03-13-2023 Alcohol intake Lifetime non-d renuka (finding) [facility] Within the last year , have you been afraid of your partner or ex-partner? No [facility] Are you now , , , , never or living with a partner? [facility] How often to you hav e a drink containing alcohol? Never [facility] How many standard drinks containing alcohol do you have on a typical day? Patient does not drink [facility] (I/We) worried wheturner er (my/our) food would run out before (I/we) got money to buy more. Never true [facility] Start: 10-27-2022 Tobacco Comment Last smoked : > 10 years Heavy cigarette smoker 40+ /day [facility] Start: 09-28-2022 Alcohol Comment Caffeine intak e= 1 pepsi daily [facility] Start: 1955 Sex Assigned At Not on file N [facility] Medical Equipment Procedure Code Equipment Code Equipment Origin al Text Equipment Identifier Dates Surgical procedure, using tension free vaginal tape, for stress incontinence [employer] FDA Start: 06-15-2017 Surgical procedure, using tension free vaginal tape, for stress incontinence [employer] FDA Start: 06-15-2017 Surgical procedure, using tension free vaginal tape, for stress incontinence [employer] FDA Start: 06-15-2017 Surgical procedure, using tension free vaginal tape, for stress incontinence [employer] FDA Start: 06-15-2017 Surgical procedure, using tension free vaginal tape, for stress incontinence [employer] FDA Start: 06-15-2017 Goals Date Patient Goal Desired Activity /State Functional Status Date Assessment Result Facility 10-17-2022 Functional status Patient at Baseline [facility] Work Phone: 10-16-2021 Functional Status N/A [facility] 07-02-2021 PHQ-9 [id number] Moderate (10-14) [facility] 250 DO Work Phone: Mental Status Date Assessment Result Facility 10-17-2022 Cognitive function Cognitive Sta tus Patient at Baseline [facility] Work Phone: Clinical Notes 07-17-2021 to 10-17-2022 Note Date & Type Note Facility 10-17-2022 Progress note Note Date/Time October 17, 2022 12:09pm [facility] [address] [place] [address] Cardiology Progress Note Signed Patient: Rubi Solares MR#: [id number] : 1955 Acct:[id number] Age/Sex: 67 / F Adm Date: 3 Loc: Room: [address] [place] [address] Type: ADM INOo Attending Dr: Roni Blanton MD Copies to: ~ Date of Service: 10/17/2022 Subjective Principal diagnosis: Chest pain Interval history: Patient's subjective sense of discomfort persist. She has had no findings to suggest myocardial ischemia and there was some improvement with Protonix and green frog. The patient acknowledges significant stress in her household and its very possible that her complaints and symptomatology are on the basis of esophageal spasm and/or gastritis. Because of this continued treatment in this regard is suggested. From a cardiology standpoint I do not believe adjustments in therapy are necessary nor do I believe repeat testing is necessary. Exam Physical Exam Vital Signs: Temp Pulse Resp BP Pulse Ox O2 Del Method 97.9 F 70 18 125/82 99 Room Air 10/17/22 11:38 10/17/22 11:38 10/17/22 11:38 10/17/22 11:38 10/17/22 11:38 10/17/22 11:38 HEENT Head: normal to inspection Ears: hearing grossly normal bilaterally Nose: external nose normal and nares normal Face and sinus: normal facial exam Mouth: oral mucosae normal and tongue normal Eyes Conjunctivae: conjunctivae normal Sclera: sclerae normal Neck Neck: normal visual inspection Carotids: normal carotid upstroke Lymphatic: no lymphadenopathy noted Chest Chest palpation & inspection: normal inspection of the chest Resp Effort & Inspection: normal respiratory effort Auscultation: clear to auscultation bilaterally Cardio Rate: regular rate Rhythm: regular rhythm Heart Sounds: S1 normal and S2 normal GI Inspection: normal to inspection Palpation: soft Skin General: no rashes or lesions noted Neuro General: patient alert, patient awake and patient oriented x3 Cognition: normal cognition Motor: muscle tone normal throughout Sensory Exam: no sensory deficits noted Objective Labs 10/17/22 05:39 10/17/22 05:39 Labs: Laboratory Results - last 24 hr 10/17/22 10/17/22 05:39 05:39 Corrected WBC 5.2 Uncorrected WBC Count 5.2 RBC 4.54 Hgb 12.9 Hct 39.4 MCV 86.8 MCH 28.4 MCHC 32.8 RDW 14.1 Plt Count 212 MPV 8.6 Neut % (Auto) 57.8 Lymph % (Auto) 29.0 [place] % (Auto) 9.5 Eos % (Auto) 3.4 Baso % (Auto) 0.3 Nucleat RBC Rel Count 0.1 Neut # (Auto) 3.0 Lymph # (Auto) 1.5 [place] # (Auto) 0.5 Eos # (Auto) 0.2 Baso # (Auto) 0.0 PHA Creatinine Clear 47.19 Sodium 142 Potassium 4.2 Chloride 105 Carbon Dioxide 32.6 H Anion Gap 8.6 BUN 33 H Creatinine 1.22 H Est GFR (CKD-EPI) 48.038 Glucose 87 Calcium 9.3 Magnesium 2.1 A&P - Cardiology (1) Chest pain: Assessment/Problem Details: History, physical exam, and testing suggest this is not an anginal and noncardiac. Code(s): R07.9 - Chest pain, unspecified Status: Acute (2) Paroxysmal A-fib: Assessment/Problem Details: Documented on pacemaker checks. The patient is protected from stroke by chronicanticoagulation on Xarelto. Code(s): I48.0 - Paroxysmal atrial fibrillation Status: Acute (3) Chronic anticoagulation: Assessment/Problem Details: As above. Continue Xarelto. Code(s): Z79.01 - intermediate designer (current) use of anticoagulants Status: Acute Plan No further cardiovascular evaluation or testing recommended. No adjustments in therapy from cardiology standpoint. I will sign off. Patient is suitable for discharge from a cardiology standpoint. Documented By: Alexys Mckeon MD [id number] Signed By: <Electronically signed by MD Alexys Mckeon> 10/17/22 1296 [facility] Work Phone: 1(182) 679-173407-08-2023 Progress note Author Roni Blanton [facility] October 16, 2022 1:36pm Note Date/Time October 16, 2022 9:58a m [facility] [address] [place] [address] Hospitalist Progress Note Signed Patient: Rubi Solares MR#: [id number] : 1955 Acct:[id number] Age/Sex: 67 / F Adm Date: 3 Loc: 3T Room: [address] [place] [address] Type: ADM INOo Attending Dr: Roni Blanton MD Copies to: ~ Date of Service: 10/16/2022 Subjective Subjective Narrative: Patient seen and examined. Currently reporting chest pressure rating it a 4, midsternal with no radiation or other symptoms. In no distress talking to nurseand testing and regulating technician. Probe pressure from echo not making her pain any worse. Nontender across pacemaker site. She does report significant stressors at home with her facing major surgery for AAA undergoing workup and they are fearing the worst as outcome. She easily beomes tearful about this in conversation. Still working 3-4 days per week out of need. She does state thatthe lasix helped alleviate a bit of her symptoms at [facility], and she inquires if this will be continued at home as I eat so small amount of food but I keep the weight in my belly and hips . States she follows with Dr Hobbs on an outpatient basis. Exam Physical Exam Vital Signs: Temp Pulse Resp BP Pulse Ox O2 Del Method 98.8 F 72 18 131/80 96 Room Air 10/16/22 08:00 10/16/22 08:00 10/16/22 08:00 10/16/22 08:00 10/16/22 08:00 10/16/22 08:00 Narrative: CONST- alert, in bed, no distress at rest, talkative, becomes tearful in conversation CARD- RRR no abnormal heart tones, PPM left chest PULM- dimin without wheeze or rhonchi, RA ABD- S/NT, NABS, obese EXTREM- trace edema BLE, calves nontender Objective Lab Results 10/16/22 06:42 10/16/22 06:42 Meds Allergies and Active Meds Allergies acetaminophen [From Percocet] Allergy (Verified 05/18/17 15:29) Palpitations oxycodone [From Percocet] Allergy (Verified 03/31/17 12:04) Palpitations Active Meds: Active Medications Generic Name Dose Route Start Last Admin Trade Name Freq PRN Reason Stop Dose Admin Acetaminophen 1,000 mg 10/15/22 20:52 Acetaminophen 500 Mg Tablet PO 10/15/23 20:51 Q6HR PRN Pain Scale 1 - 3 or fever Atorvastatin Calcium 20 mg 10/16/22 09:00 10/16/22 08:12 Atorvastatin 20 Mg Tablet PO 10/16/23 08:59 20 mg DAILY ROZ Administration Carvedilol 12.5 mg 10/16/22 09:00 10/16/22 08:12 Carvedilol 12.5 Mg Tablet PO 10/16/23 08:59 12.5 mg BID ROZ Administration Furosemide 40 mg 10/16/22 10:00 Furosemide 40 Mg/4 Ml Vial IV-PUSH 10/16/23 09:59 BID@0800,1600 [facility] Ketorolac Tromethamine 15 mg 10/15/22 20:52 10/16/22 08:12 Ketorolac Tromethamine 30 Mg/Ml Vial IV-PUSH 10/20/22 20:51 15 mg Q6H PRN Administration Pain Scale 4 - 7 Losartan Potassium 100 mg 10/16/22 09:00 10/16/22 08:12 Losartan 50 Mg Tablet PO 10/16/23 08:59 100 mg DAILY ROZ Administration Nitroglycerin 0.4 mg 10/16/22 09:28 Nitroglycerin 0.4 Mg Tab.Subl SUBLINGUAL 10/16/23 09:27 Q5M PRN Chest Pain Non-Formulary Medication 75 mg 10/16/22 09:00 Vibegron [Gemtesa] PO 10/16/23 08:59 DAILY ROZ Pregabalin 150 mg 10/16/22 09:00 10/16/22 08:12 Pregabalin 150 Mg Capsule PO 04/14/23 08:59 150 mg BID ROZ Administration Rivaroxaban 20 mg 10/16/22 17:00 Rivaroxaban 20 Mg Tablet PO 10/16/23 16:59 DAILY.WITH.SUPPER ROZ Sodium Chloride 0 ml 10/15/22 22:00 10/16/22 08:14 Sodium Chloride 0.9 % 10 Ml Syringe IV-PUSH 10/15/23 21:59 10 ml QSHIFT ROZ Administration Tramadol HCl 50 - 100 mg 10/16/22 03:20 Tramadol 50 Mg Tablet PO 04/14/23 03:19 BID PRN Pain A&P - Hospitalist Assessment/Plan (1) Chest pain: (2) Hypertension: (3) Paroxysmal A-fib: (4) Hypomagnesemia: (5) UTI (urinary tract infection), bacterial: (6) Acute heart failure with preserved ejection fraction (HFpEF): (7) Chronic anticoagulation: Plan Midsternal Chest pain, ACS ruled out Volume overload PAF on chronic anticoagulation HTN HLD -troponins negative, EKG nonacute -echo-EF 50-55%, LVDD, mild LA dilation -cardiology consult appreciated -pacemaker check -noncardiac etiology consider GI vs stressors- is on BID dosing IV Pantoprazole, check stool OB. Dung ordered -home meds -carvedilol, losartan, rivaroxaban, atorvastatin -furosemide IV UTI -Ceftriaxone, follow culture Chronic Conditions 1. Fibromyalgia- Pregabalin 2. Overactive bladder Attending Attestation: Patient was personally seen by me on the day of encounter. I reviewed her history and performed garland elements of exam and formulated the plan of care and confirmed the nurse practitioner note above. Patient does also report significant anxiety from her having multiple medical conditions including dementia, dysphagia, AAA needing surgical repair. We will add BuSpar 3 times daily as needed for acute episodes of anxiety. Documented By: EL Warren [id number] Signed By: <Electronically signed by EL Eagle> 10/16/22 1320 <Electronically signed by Roni Blanton MD> 10/16/22 1336 [facility] Work Phone: 1(608) 515-528607-08-2023 Consult note Author Alexys Mckeon [facility] October 16, 2022 12:04pm Note Date/Time October 16, 2022 12:01 pm [facility] [address] [place] [address] Cardiology Consult Note Signed Patient: Rubi Solares MR#: [id number] : 1955 Acct:[id number] Age/Sex: 67 / F Adm Date: 3 Loc: Room: [address] [place] [address] Type: ADM INOo Attending Dr: Roni Blanton MD Copies to: MD Oren Hernandez DO William Patrick McGuinn, MD~ Cardiology HPI History of Present Illness Consult Date: 10/16/22 Reason for Consult: Chest pain HPI: Ms. Solares is a 67 year old female seen for the above She is an individual who states that she awoke 24 hours ago with retrosternal chest discomfort. It never really went away. She tried to take a nap and woke again is still uncomfortable. Because she was feeling ill she did not go to work and she ultimately came to the emergency department. She was given parenteral medication and she states it took the edge off but it never completely resolved. Despite the prolonged pain for over 24 hours she has no EKG changes to suggest ischemia nor troponin rise that would suggest infarct. The patient has been evaluated for chest pain in the past. She had a coronary angiogram in 2012 and another coronary angiogram with right heart catheterization in 2017. Both at [facility]. Both were normal. There was no disease. Because of this I am doubtful that her symptomatology is cardiac but because of its persistent nature I believe an aggressive intervention (gastrointestinal) should be attempted. Review of Systems Review of Systems All other systems reviewed & are negative unless noted below or in HPI Constitutional Constitutional: Reports system reviewed and no additional complaints, except as documented Eyes Eyes: Reports system reviewed and no additional complaints, except as documented ENT Ears, Nose, Mouth, and Throat: Reports system reviewed and no additional complaints, except as documented Cardiovascular Cardiovascular: Reports system reviewed and no additional complaints, except as documented Respiratory Respiratory: Reports system reviewed and no additional complaints, except as documented Gastrointestinal Gastrointestinal: Reports as per HPI Genitourinary Genitourinary: Reports system reviewed and no additional complaints, except as documented Musculoskeletal Musculoskeletal: Reports system reviewed and no additional complaints, except asdocumented Integumentary/Breasts Skin/Breast: Reports system reviewed and no additional complaints, except as documented Neurologic Neurologic: Reports system reviewed and no additional complaints, except as documented Psychiatric Psychiatric: Reports system reviewed and no additional complaints, except as documented Endocrine Endocrine: Reports system reviewed and no additional complaints, except as documented Hematologic/Lymphatic Hematologic/Lymphatic: Reports system reviewed and no additional complaints, except as documented Allergic/Immunologic Allergic/Immunologic: Reports system reviewed and no additional complaints, except as documented PMFSH Vaccinated for COVID-19?: Yes Medical History (Updated 10/16/22 @ 12:03 by Alexys Mckeon MD) Hyperlipidemia Hypertension Pacemaker Paroxysmal A-fib Surgical History (Updated 10/15/22 @ 20:15 by Briana Portillo RN) History of lung surgery Family History (Updated 10/15/22 @ 20:15 by Briana Portillo RN) Mother Cancer mother of cancer Heart disease Son Diabetes Father Heart disease Social History Smoking Status: Former smoker Tobacco Type: cigarettes Substance Use Type: None Meds Medications and Allergies Allergies acetaminophen [From Percocet] Allergy (Verified 05/18/17 15:29) Palpitations oxycodone [From Percocet] Allergy (Verified 03/31/17 12:04) Palpitations Home Medications atorvastatin 20 mg tablet 20 mg PO DAILY 06/01/17 [History Confirmed 10/15/22] cholecalciferol (vitamin D3) 50 mcg (2,000 unit) tablet (Vitamin D3) 2,000 unit PO DAILY 06/01/17 [History Confirmed 10/15/22] losartan 100 mg tablet 100 mg PO DAILY HTN 06/01/17 [History Confirmed 10/15/22] pregabalin 150 mg capsule (Lyrica) 150 mg PO BID RLS 06/01/17 [History Confirmed 10/15/22] tramadol 50 mg tablet 1 - 2 tab PO BID PRN Pain 06/01/17 [History Confirmed 10/15/22] calcium carbonate 500 mg-vitamin D3 3.125 mcg (125 unit) tablet (Calcium) 2 tab PO BID 07/19/18 [History Confirmed 10/15/22] ergocalciferol (vitamin D2) 1,250 mcg (50,000 unit) capsule 1 tab PO QWEEK 07/19/18 [History Confirmed 10/15/22] carvedilol 12.5 mg tablet 12.5 mg PO 2XD 10/15/22 [History Confirmed 10/15/22] rivaroxaban 10 mg tablet (Xarelto) 20 mg PO DAILY 10/15/22 [History Confirmed 10/16/22] vibegron 75 mg tablet (Gemtesa) 75 mg PO DAILY 10/15/22 [History Confirmed 10/15/22] Exam Physical Exam Vital Signs: Temp Pulse Resp BP Pulse Ox O2 Del Method 98.8 F 71 18 134/82 96 Room Air 10/16/22 08:00 10/16/22 11:11 10/16/22 11:11 10/16/22 11:11 10/16/22 11:11 10/16/22 11:11 HEENT Head: normal to inspection Ears: hearing grossly normal bilaterally Nose: external nose normal and nares normal Face and sinus: normal facial exam Mouth: oral mucosae normal and tongue normal Eyes Conjunctivae: conjunctivae normal Sclera: sclerae normal Neck Neck: normal visual inspection Carotids: normal carotid upstroke Lymphatic: no lymphadenopathy noted Chest Chest palpation & inspection: normal inspection of the chest Resp Effort & Inspection: normal respiratory effort Auscultation: clear to auscultation bilaterally Cardio Rate: regular rate Rhythm: regular rhythm Heart Sounds: S1 normal and S2 normal GI Inspection: normal to inspection Palpation: soft Skin General: no rashes or lesions noted Neuro General: patient alert, patient awake and patient oriented x3 Cognition: normal cognition Motor: muscle tone normal throughout Sensory Exam: no sensory deficits noted Results Labs 10/16/22 06:42 10/16/22 06:42 Lab results: Lipids 10/16/22 Range/Units 06:42 Triglycerides 80 (0-149) mg/dL Cholesterol 149 (140-200) mg/dL HDL Cholesterol 52 (23-92) mg/dL Cholesterol/HDL Ratio 2.9 (<5.0) CBC 10/16/22 Range/Units 06:42 RBC 4.28 (3.60-5.00) X10E6/uL Hgb 12.2 (11.8-15.4) g/dL Hct 37.3 (34.0-46.4) % Plt Count 159 (150-450) x10E3/uL Neut # (Auto) 5.0 (1.8-7.7) x10E3/uL Lymph # (Auto) 1.1 (1.00-4.8) x10E3/uL [place] # (Auto) 0.6 (0.0-0.8) x10E3/uL Eos # (Auto) 0.1 (0.0-0.45) x10E3/uL Baso # (Auto) 0.0 (0.0-0.2) x10E3/uL Comprehensive Metabolic Panel 10/16/22 Range/Units 06:42 Sodium 144 (136-145) mmol/L Potassium 3.8 (3.5-5.1) mmol/L Chloride 110 H (98-107) mmol/L Carbon Dioxide 29.4 (21.0-31.0) mmol/L BUN 30 H (7-25) mg/dL Creatinine 0.86 (0.60-1.20) mg/dL Glucose 76 (70-100) mg/dL Calcium 8.9 (8.6-10.3) mg/dL Intake and Output 10/15/22 10/16/22 10/16/22 23:59 07:59 15:59 Intake Total 240 / 240 280 / 280 Balance 240 / 240 280 / 280 Intake: Oral 240 / 240 280 / 280 Other: # Unmeasured Voids 1 2 Weight 91.7 kg 91.5 kg Date of Last Bowel Movement 10/15/22 10/15/22 Patient Weight 10/16/22 23:59 Weight 91.5 kg A&P - Cardiology (1) Chest pain: Assessment/Problem Details: Patient's chest pain is most likely noncardiac. She has had 2 normal coronary angiograms most recent one 6 years ago. The absence of ST-T wave changes and troponin elevation makes the pain she is experiencing her last 24 hours highly unlikely be on the basis of myocardial ischemia. I believe more than likely is gastrointestinal and have implemented green frog suspension and Protonix. Code(s): R07.9 - Chest pain, unspecified (2) Pacemaker: Assessment/Problem Details: Pacemaker implant for sick sinus syndrome. Previous device checks demonstrate satisfactory device performance. Code(s): Z95.0 - Presence of cardiac pacemaker (3) PVCs (premature ventricular contractions): Assessment/Problem Details: PVCs are noted better inconsequential and not the cause of her chest pain. Code(s): I49.3 - Ventricular premature depolarization Plan FocalGreen frog suspension and Protonix for noncardiac chest pain. I do not believe patient requires coronary disease. Documented By: Alexys Mckeon MD [id number] Signed By: <Electronically signed by MD Alexys Mckeon> 10/16/22 1204 [facility] Work Phone: 1(161) [phone] History and physical note Author Romain Rosen [facility] October 16, 2022 3:01am Note Date/Time October 15, 2022 9:02p m [facility] [address] [place] [address] Hospitalist H&P Signed Patient: Rubi Solares MR#: [id number] : 1955 Acct:[id number] Age/Sex: 67 / F Adm Date: 3 Loc: Room: [address] [place] [address] Type: ADM IN Attending Dr: Emanuel Albrecht DO Copies to: DO Mary Brenner APRN Robert J Vaschak, DO Shawn J Warner, DO~ HPI DATE OF EXAMINATION: 10/15/22 CHIEF COMPLAINT: chest pain HISTORY OF PRESENT ILLNESS: Ms. Solares is a 67-year-old female with a PMH of HTN, paroxysmal A-fib, bradycardia, fibromyalgia, LLL granuloma post lobectomy that presented to the [facility] emergency room for complaints of chest pain. Patient seen and evaluated at bedside, resting in bed quietly. She currently reports a squeezingchest pain rated a 7/10, no aggravating factors no relieving factors. She reports that the squeezing goes down both sides. She states that her chest painwoke her up about 9:00 this morning states the pain is squeezing and constant, rated the pain this morning 8/10 and she felt cold and clammy. She states the last couple days she has felt sluggish and more fatigued. She denies shortness of breath, orthopnea, swelling. She states she had tried to get ready for work and knew she was not in a make it to work. She reports a history of heart cath with no stents placed, pacemaker placed for bradycardia. She denies fever, chills, nausea or vomiting. EKG from [facility] monitor for EMS A-fib with PVCs. EKG on arrival to [facility] shows atrial paced with PVCs, underlying sinus rhythm. Chest x-ray shows no acute process. CBC with was unremarkable. D-dimer is 0.28 BMP?her BUNwas 29, creatinine 0.99, glucose 111. NT?pro?B 3750 initial troponin 7.8, repeat 7.9. The patient was medicated with morphine x2, nitro, Zofran, aspirin,and Lasix. Patient was transferred to [facility] under the care of the hospitalist team for further evaluation and treatment. Review of Systems Review of Systems Review of systems: A 10 point review of systems was obtained, negative unless noted in the HPI or below. [facility] Attestation Statement: The following information was validated with the patient. Vaccinated for COVID-19?: Yes Medical History (Updated 10/15/22 @ 21:15 by Mary Ocampo APRN) Hyperlipidemia Hypertension Pacemaker Paroxysmal A-fib Surgical History (Updated 10/15/22 @ 20:15 by Briana Portillo RN) History of lung surgery Family History (Updated 10/15/22 @ 20:15 by Briana Portillo RN) Mother Cancer mother of cancer Heart disease Son Diabetes Father Heart disease Social History Smoking Status: Former smoker Tobacco Type: cigarettes Substance Use Type: None Meds Medications and Allergies Allergies acetaminophen [From Percocet] Allergy (Verified 05/18/17 15:29) Palpitations oxycodone [From Percocet] Allergy (Verified 03/31/17 12:04) Palpitations Home Medications atorvastatin 20 mg tablet 20 mg PO DAILY 06/01/17 [History Confirmed 10/15/22] cholecalciferol (vitamin D3) 50 mcg (2,000 unit) tablet (Vitamin D3) 2,000 unit PO DAILY 06/01/17 [History Confirmed 10/15/22] losartan 100 mg tablet 100 mg PO DAILY HTN 06/01/17 [History Confirmed 10/15/22] pregabalin 150 mg capsule (Lyrica) 150 mg PO BID RLS 06/01/17 [History Confirmed 10/15/22] tramadol 50 mg tablet 1 - 2 tab PO BID PRN Pain 06/01/17 [History Confirmed 10/15/22] calcium carbonate 500 mg-vitamin D3 3.125 mcg (125 unit) tablet (Calcium) 2 tab PO BID 07/19/18 [History Confirmed 10/15/22] ergocalciferol (vitamin D2) 1,250 mcg (50,000 unit) capsule 1 tab PO QWEEK 07/19/18 [History Confirmed 10/15/22] carvedilol 12.5 mg tablet 12.5 mg PO 2XD 10/15/22 [History Confirmed 10/15/22] rivaroxaban 10 mg tablet (Xarelto) 2.5 mg PO DAILY 10/15/22 [History Confirmed 10/16/22] vibegron 75 mg tablet (Gemtesa) 75 mg PO DAILY 10/15/22 [History Confirmed 10/15/22] Exam Physical Exam Vital Signs: Temp Pulse Resp BP Pulse Ox O2 Del Method 97.9 F 71 18 133/84 99 Room Air 10/15/22 19:36 10/15/22 19:36 10/15/22 19:36 10/15/22 19:36 10/15/22 19:36 10/15/22 20:16 Narrative: CONST- Appears well -developed and well nourished. Morbidly obese HEAD - Normocephalic and atraumatic EENT-Sclera nonicteric, conjunctive are non-erythemic, moist oral mucosa, pharynx clear NECK-Supple, no cervical lymphadenopathy CARDIAC-normal rate, regular rhythm, S1 & S2. PULM-diminished without wheeze or rhonchi, RA, no accessory muscle use or cough noted ABD - Soft. Bowel sounds are hyperactive. No distention. No tenderness EXTREM-no edema BLE calves, nontender SKIN- W/D good turgor MS- MAEX4 spontaneously with equal with equal strength NEURO- A&Ox3 speech clear and tongue midline, equal facial symmetry, no focal motor deficits PSYCH-Mood, affect, and behavior appropriate Assessment & Plan Assessment/Plan (1) Chest pain: (2) Hypertension: (3) Paroxysmal A-fib: Plan Chest pain r/o ACS ? Monitor telemetry ? Stat troponin, troponin in a.m. ? Echo in a.m.?last echo found in chart from 2016, EF 50 to 55% ? CBC, BMP, magnesium in a.m. Chronic conditions HTN?monitor, resume home meds when confirmed?carvedilol, losartan Paroxysmal A-fib?monitor telemetry, resume home meds when confirmed?Xarelto HLD?lipid profile in a.m., atorvastatin DVT PPx-SCDs, Xarelto Diet order-2 g sodium, heart healthy CODE STATUS-full code I personally saw this patient on the day of the encounter, reviewed the history,performed the garland elements of the exam, formulated the plan of care and confirmed the Nurse Practitioner's assessment and plan. - Romain Rosen DO IP vs OBS Justification Based on differential dx, clinical care plan, and risk of adverse events, if untreated, in my clinical judgement this patient requires an acute care setting as: OBSERVATION because of an expectation of an under 2 midnight stay. Estimated length of stay (# of days): 2 Documented By: Mary Ocampo APRN 10/15/222101 Signed By: <Electronically signed by GAUTAM Ocampo> 10/15/222121 <Electronically signed by Romain Rosen DO> 10/16/22 0301 [facility] Work Phone: 1(684) 804-732707-08-2022 Hospital Discharge instructions Patient Education 10/16/2021 09:33:35 Kegel Exercises Kegel Exercises Kegel exercises can help strengthen your pelvic floor muscles. The pelvic floor is a group of muscles that support your rectum, small intestine, and bladder. In females, pelvic floor muscles also help support the womb (uterus). These muscles help you control the flow of urine and stool. Kegel exercises are painless and simple, and they do not require any equipment. Your provider may suggest Kegel exercises to: Improve bladder and bowel control. Improve sexual response. Improve weak pelvic floor muscles after surgery to remove the uterus (hysterectomy) or (females). Improve weak pelvic floor muscles after prostate gland removal or surgery (males). Kegel exercises involve squeezing your pelvic floor muscles, which are the same muscles you squeezewhen you try to stop the flow of urine or keep from passing gas. The exercises can be done while sitting, standing, or lying down, but it is best to vary your position. Exercises How to do Kegel exercises: 1.Squeeze your pelvic floor muscles tight. You should feel a tight lift in your rectal area. If youare a female, you should also feel a tightness in your vaginal area. Keep your stomach, buttocks, and legs relaxed. 2.Hold the muscles tight for up to 10 seconds. 3.Breathe normally. 4.Relax your muscles. 5.Repeat as told by your health care provider. Repeat this exercise daily as told by your health care provider. Continue to do this exercise for at least 4 6 weeks, or for as long as told by your health care provider. You may be referred to a physical therapist who can help you learn more about how to do Kegel exercises. Depending on your condition, your health care provider may recommend: Varying how long you squeeze your muscles. Doing several sets of exercises every day. Doing exercises for several weeks. Making Kegel exercises a part of your regular exercise routine. This information is not intended to replace advice given to you by your health care provider. Make sure you discuss any questions you have with your health care provider. Document Released: 03/14/2013 Document Revised: 11/15/2018 Document Reviewed: 11/15/2018 Impraise Patient Education 2020 [employer]. 10/16/2021 09:33:33 Urinary Incontinence Urinary Incontinence Urinary incontinence refers to a condition in which a person is unable to control where and when topass urine. A person with this condition will urinate when he or she does not mean to (involuntarily). What are the causes? This condition may be caused by: Medicines. Infections. Constipation. Overactive bladder muscles. Weak bladder muscles. Weak pelvic floor muscles. These muscles provide support for the bladder, intestine, and, in women,the uterus. Enlarged prostate in men. The prostate is a gland near the bladder. When it gets too big, it can pinch the urethra. With the urethra blocked, the bladder can weaken and lose the ability to empty properly. Surgery. Emotional factors, such as anxiety, stress, or post-traumatic stress disorder (PTSD). Pelvic organ prolapse. This happens in women when organs shift out of place and into the vagina. This shift can prevent the bladder and urethra from working properly. What increases the risk? The following factors may make you more likely to develop this condition: Older age. Obesity and physical inactivity. and childbirth. Menopause. Diseases that affect the nerves or spinal cord (neurological diseases). Long-term (chronic) coughing. This can increase pressure on the bladder and pelvic floor muscles. What are the signs or symptoms? Symptoms may vary depending on the type of urinary incontinence you have. They include: A sudden urge to urinate, but passing urine involuntarily before you can get to a bathroom (urge incontinence). Suddenly passing urine with any activity that forces urine to pass, such as coughing, laughing, exercise, or sneezing (stress incontinence). Needing to urinate often, but urinating only a small amount, or constantly dribbling urine (overflow incontinence). Urinating because you cannot get to the bathroom in time due to a physical disability, such as arthritis or injury, or communication and thinking problems, such as Alzheimer disease (functional incontinence). How is this diagnosed? This condition may be diagnosed based on: Your medical history. A physical exam. Tests, such as: ?Urine tests. ?X-rays of your kidney and bladder. ?Ultrasound. ?CT scan. ?Cystoscopy. In this procedure, a health care provider inserts a tube with a light and camera (cystoscope) through the urethra and into the bladder in order to check for problems. ?Urodynamic testing. These tests assess how well the bladder, urethra, and sphincter can store and release urine. There are different types of urodynamic tests, and they vary depending on what the test is measuring. To help diagnose your condition, your health care provider may recommend that you keep a log of when you urinate and how much you urinate. How is this treated? Treatment for this condition depends on the type of incontinence that you have and its cause. Treatment may include: Lifestyle changes, such as: ?Quitting smoking. ?Maintaining a healthy weight. ?Staying active. Try to get 150 minutes of moderate-intensity exercise every week. Ask your health care provider which activities are safe for you. ?Eating a healthy diet. ?Avoid high-fat foods, like fried foods. ?Avoid refined carbohydrates like white bread and white rice. ?Limit how much alcohol and caffeine you drink. ?Increase your fiber intake. Foods such as fresh fruits, vegetables, beans, and whole grains are healthy sources of fiber. Pelvic floor muscle exercises. Bladder training, such as lengthening the amount of time between bathroom breaks, or using the bathroom at regular intervals. Using techniques to suppress bladder urges. This can include distraction techniques or controlled breathing exercises. Medicines to relax the bladder muscles and prevent bladder spasms. Medicines to help slow or prevent the growth of a man's prostate. Botox injections. These can help relax the bladder muscles. Using pulses of electricity to help change bladder reflexes (electrical nerve stimulation). For women, using a medical biller to prevent urine leaks. This is a small, tampon-like, disposable device that is inserted into the urethra. Injecting collagen or carbon beads (bulking agents) into the urinary sphincter. These can help thicken tissue and close the bladder opening. Surgery. Follow these instructions at home: Lifestyle Limit alcohol and caffeine. These can fill your bladder quickly and irritate it. Keep yourself clean to help prevent odors and skin damage. Ask your doctor about special skin creams and cleansers that can protect the skin from urine. Consider wearing pads or adult diapers. Make sure to change them regularly, and always change them right after experiencing incontinence. General instructions Take ylbr-txg-wicfeak and prescription medicines only as told by your health care provider. Use the bathroom about every 3 4 hours, even if you do not feel the need to urinate. Try to empty your bladder completely every time. After urinating, wait a minute. Then try to urinate again. Make sure you are in a relaxed position while urinating. If your incontinence is caused by nerve problems, keep a log of the medicines you take and the times you go to the bathroom. Keep all follow-up visits as told by your health care provider. This is important. Contact a health care provider if: You have pain that gets worse. Your incontinence gets worse. Get help right away if: You have a fever or chills. You are unable to urinate. You have redness in your groin area or down your legs. Summary Urinary incontinence refers to a condition in which a person is unable to control where and when topass urine. This condition may be caused by medicines, infection, weak bladder muscles, weak pelvic floor muscles, enlargement of the prostate (in men), or surgery. The following factors increase your risk for developing this condition: older age, obesity, and childbirth, menopause, neurological diseases, and chronic coughing. There are several types of urinary incontinence. They include urge incontinence, stress incontinence, overflow incontinence, and functional incontinence. This condition is usually treated first with lifestyle and behavioral changes, such as quitting smoking, eating a healthier diet, and doing regular pelvic floor exercises. Other treatment options include medicines, bulking agents, medical devices, electrical nerve stimulation, or surgery. This information is not intended to replace advice given to you by your health care provider. Make sure you discuss any questions you have with your health care provider. Document Released: 05/05/2005 Document Revised: 04/07/2018 Document Reviewed: 07/07/2017 Impraise Patient Education 2020 [employer]. Follow Up Care 07/30/2021 14:44:57 With:Deni LOZA, GARCIA Santamaria, URO Address: When: Unknown Comments:[facility] 04-08-2022 Hospital Discharge instructions Patient Education 07/17/2021 12:29:13 Hematuria, Adult Hematuria, Adult Hematuria is blood in the urine. Blood may be visible in the urine, or it may be identified with a test. This condition can be caused by infections of the bladder, urethra, kidney, or prostate. Otherpossible causes include: Kidney stones. Cancer of the urinary tract. Too much calcium in the urine. Conditions that are passed from parent to child (inherited conditions). Exercise that requires a lot of energy. Infections can usually be treated with medicine, and a kidney stone usually will pass through your urine. If neither of these is the cause of your hematuria, more tests may be needed to identify the cause of your symptoms. It is very important to tell your health care provider about any blood in your urine, even if it ispainless or the blood stops without treatment. Blood in the urine, when it happens and then stops and then happens again, can be a symptom of a very serious condition, including cancer. There is no pain in the initial stages of many urinary cancers. Follow these instructions at home: Medicines Take oueo-uxj-quwgshf and prescription medicines only as told by your health care provider. If you were prescribed an antibiotic medicine, take it as told by your health care provider. Do notstop taking the antibiotic even if you start to feel better. Eating and drinking Drink enough fluid to keep your urine clear or pale yellow. It is recommended that you drink 3 4 quarts (2.8 3.8 L) a day. If you have been diagnosed with an infection, it is recommended that you drink cranberry juice in addition to large amounts of water. Avoid caffeine, tea, and carbonated beverages. These tend to irritate the bladder. Avoid alcohol because it may irritate the prostate (men). General instructions If you have been diagnosed with a kidney stone, follow your health care provider's instructions about straining your urine to catch the stone. Empty your bladder often. Avoid holding urine for long periods of time. If you are female: ?After a bowel movement, wipe from front to back and use each piece of toilet paper only once. ?Empty your bladder before and after sex. Pay attention to any changes in your symptoms. Tell your health care provider about any changes or any new symptoms. It is your responsibility to get your test results. Ask your health care provider, or the department performing the test, when your results will be ready. Keep all follow-up visits as told by your health care provider. This is important. Contact a health care provider if: You develop back pain. You have a fever. You have nausea or vomiting. Your symptoms do not improve after 3 days. Your symptoms get worse. Get help right away if: You develop severe vomiting and are unable take medicine without vomiting. You develop severe pain in your back or abdomen even though you are taking medicine. You pass a large amount of blood in your urine. You pass blood clots in your urine. You feel very weak or like you might faint. You faint. Summary Hematuria is blood in the urine. It has many possible causes. It is very important that you tell your health care provider about any blood in your urine, even ifit is painless or the blood stops without treatment. Take ysih-zxu-crifjmy and prescription medicines only as told by your health care provider. Drink enough fluid to keep your urine clear or pale yellow. This information is not intended to replace advice given to you by your health care provider. Make sure you discuss any questions you have with your health care provider. Document Released: 03/28/2006 Document Revised: 08/22/2019 Document Reviewed: 04/30/2017 Impraise Patient Education 2019 [employer]. [facility] [place] 04-08-2022 Evaluation + Plan note Diagnostic Tests Pending * [facility] Fish and Urine Cyto ([facility]) 07/17/21 [facility] [place] Evaluation noteNo assessment information available [facility] Work Phone: Evaluation note* Diagnosis Onset Date Resolution Status Acute heart failure with pre served ejection fraction (HFpEF) acute Chest pain acute Chronic anticoagulation acut e Hypertension acute Hypomagnesemia acute Pacemaker acute Paroxysmal A-fib acute PVCs (premature ventricular contractions) acute UTI (urinary tract infection), bacterial acute [facility] Work Phone: Evaluation note* Diagnosis Fibromyalgia Unspecified myalgia and myositis documented in [facility] Narrative No data available for this section [facility] [employer] Progress note No data available for this section [facility] [employer] Summary Purpose Family History No Family History Records FoundUnknown Family Member Name Dates Details : Mother, Father Status:Active Family history of cardiac di sorder: Father(V17.49, Z82.49) Status:Active Family history of malignant neoplasm: Mother(V16.9, Z80.9) Status:Active Family history of arterioscl erotic cardiovascular disease: Father(V17.49, Z82.49) Status:Active Unknown Family Member Name Dates Details Family history of arterioscl erotic cardiovascular disease: Father(V17.49, Z82.49) Status:Active Family history of malignant neoplasm: Mother(V16.9, Z80.9) Status:Active Family history of cardiac di sorder: Father(V17.49, Z82.49) Status:Active : Mother, Father Status:Active Unknown Family Member Name Dates Details : Mother, Father Status:Active Family history of cardiac di sorder: Father(V17.49, Z82.49) Status:Active Family history of malignant neoplasm: Mother(V16.9, Z80.9) Status:Active Family history of arterioscl erotic cardiovascular disease: Father(V17.49, Z82.49) Status:Active Unknown Family Member Name Dates Details : Mother, Father Status:Active Family history of cardiac di sorder: Father(V17.49, Z82.49) Status:Active Family history of malignant neoplasm: Mother(V16.9, Z80.9) Status:Active Family history of arterioscl erotic cardiovascular disease: Father(V17.49, Z82.49) Status:Active Unknown Family Member Name Dates Details : Mother, Father Status:Active Family history of cardiac di sorder: Father(V17.49, Z82.49) Status:Active Family history of malignant neoplasm: Mother(V16.9, Z80.9) Status:Active Family history of arterioscl erotic cardiovascular disease: Father(V17.49, Z82.49) Status:Active Relationship Condition Age at Onset Recorded Date/T gabo Not Specified Malignant neoplasm Unknown Heart disease Unknown natural son Diabetes mellitus Unknown father Heart disease Unknown Unknown Family Member Name Dates Details : Mother, Father Status:Active Family history of cardiac di sorder: Father(V17.49, Z82.49) Status:Active Family history of malignant neoplasm: Mother(V16.9, Z80.9) Status:Active Family history of arterioscl erotic cardiovascular disease: Father(V17.49, Z82.49) Status:Active Advance Directives No Advanced Directives Records Found Advance Directive Response Recorded Date/ Time Advance Directives No March 12:18pm Advance Directive Response Recorded Date/ Time Advance Directives No March 1:18pm Chief Complaint * RUBI SOLARES is being seen for a 9 month follow-up of. * Patient is in the office for follow-up for sick sinus syndrome with a pacemaker in place and paroxysmal atrial fibrillation who has been low on long-term anticoagulation with Xarelto. She has hypertension under control. She had previous cardiac evaluation with angiography which revealed no significant coronary heart disease and normal ejection fraction. Currently she is unemployed and her depression score came back higher than normal therefore advised patient discuss that with PCP in the upcoming visit. She is also scheduled to have lab work with him in August 2021. Her examination is normal except for obesity. Her last pacemaker check in May 2021 was reviewed with her. There was an eventin April when she had 22 hours of atrial fibrillation which she was not symptomatic with. * ASSESSMENT AND PLAN: * 1. Atrial fibrillation, asymptomatic. Currently anticoagulated with Xarelto. This will continue. The load of atrial fibrillation is currently very low. * 2. Sinus node dysfunction with a pacemaker in place pacemaker evaluations have been reviewed. * 3. Cardiac catheterization in 2011 in 2016 revealed normal coronary arteries * 4. High-risk medication with anticoagulation without any bleeds * 5. Hypertension, currently under control on losartan. * 6. Obesity, encouraged the patient cut back calorie intake and exercise on more regular basis. * Davin Hobbs MD, [facility] * RUBI SOLARES is being seen for a 9 month follow-up of. * Patient is in the office for follow-up for sick sinus syndrome with a pacemaker in place and paroxysmal atrial fibrillation who has been low on long-term anticoagulation with Xarelto. She has hypertension under control. She had previous cardiac evaluation with angiography which revealed no significant coronary heart disease and normal ejection fraction. Currently she is unemployed and her depression score came back higher than normal therefore advised patient discuss that with PCP in the upcoming visit. She is also scheduled to have lab work with him in August 2021. Her examination is normal except for obesity. Her last pacemaker check in May 2021 was reviewed with her. There was an eventin April when she had 22 hours of atrial fibrillation which she was not symptomatic with. * ASSESSMENT AND PLAN: * 1. Atrial fibrillation, asymptomatic. Currently anticoagulated with Xarelto. This will continue. The load of atrial fibrillation is currently very low. * 2. Sinus node dysfunction with a pacemaker in place pacemaker evaluations have been reviewed. * 3. Cardiac catheterization in 2011 in 2016 revealed normal coronary arteries * 4. High-risk medication with anticoagulation without any bleeds * 5. Hypertension, currently under control on losartan. * 6. Obesity, encouraged the patient cut back calorie intake and exercise on more regular basis. * Davin Hobbs MD, FACC * RUBI SOLARES is being seen for a 9 month follow-up of. * Patient is in the office for follow-up for the problems noted below. Since her last visit 9 months ago there has not been any cardiac events of noticed. Recent pacemaker check from last week was on target with no significant atrial fibrillation load. She is on Xarelto 20 mg daily for that. Her pacemaker function is appropriate. Her weight remains above target something that she is aware of and try to work on it. 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 Her physical examination is normal except for obesity. Her lab data from PCP were reviewed with her and there was no areas of concern noted. Her medical therapy will be left unchanged. Her follow-up will be left as it is every 9 months. * ASSESSMENT AND PLAN: * 1. History of paroxysmal atrial fibrillation, asymptomatic. Currently anticoagulated with Xarelto. This will continue. The load of atrial fibrillation is currently very low. * 2. Sinus node dysfunction with a pacemaker in place pacemaker evaluations have been reviewed. * 3. Cardiac catheterization in 2011 in 2016 revealed normal coronary arteries * 4. High-risk medication with anticoagulation without any bleeds * 5. Hypertension, currently under control on losartan. * 6. Obesity, encouraged the patient cut back calorie intake and exercise on more regular basis. * Davin Hobbs MD, FACC * RUBI SOLARES is being seen for a 9 month follow-up of. * Patient is in the office for follow-up for the problems noted below. In October she was in the hospital with atypical chest pain was seen by Dr. Mckeon her work-up was negative and there has been no recurrent symptoms since. Her symptoms may suggest esophageal spasm with an actual ischemic heart disease. We spent more than half of our conversation today discussing her 's case who is a patient of mine with potential surgery for aortic dissection at the [facility] in [place]. Her examination was unremarkable except for class II obesity. * ASSESSMENT AND PLAN: * 1. History of paroxysmal atrial fibrillation, asymptomatic. Currently anticoagulated with Xarelto. This will continue. The load of atrial fibrillation is currently very low. * 2. Sinus node dysfunction with a pacemaker in place pacemaker evaluations have been reviewed. * 3. Cardiac catheterization in 2012 in 2017 revealed normal coronary arteries * 4. High-risk medication with anticoagulation without any bleeds * 5. Hypertension, currently under control on losartan. * 6. Class II obesity, encouraged the patient cut back calorie intake and exercise on more regular basis. * 7. Recent admission in October 2022 to the hospital for chest pain with negative work-up appears to benoncardiac in origin. No need for further cardiac testing based on the available information we have at this time. * Davin Hobbs MD, [facility] Chief Complaint and Reason for Visit Chief Complaint sinus node dysfuncti on Chief Complaint Chest Pain Reason for Visit Acute heart failure with preserved ejection fraction (HFpEF) Chest pain Chronic anticoagulation Hypertension Hypomagnesemia Pacemaker Paroxysmal A-fib PVCs (premature ventricular contractions) UTI (urinary tract infection), bacterial Chief Complaint Chest Pain sent by Reason for Visit Acute heart failure with preserved ejection fraction (HFpEF) Chest pain Chronic anticoagulation Hypertension Hypomagnesemia Pacemaker Paroxysmal A-fib PVCs (premature ventricular contractions) UTI (urinary tract infection), bacterial Chief Complaint Chest Pain sent by R19.7 Reason for Visit Acute heart failure with preserved ejection fraction (HFpEF) Chest pain Chronic anticoagulation Hypertension Hypomagnesemia Pacemaker Paroxysmal A-fib PVCs (premature ventricular contractions) UTI (urinary tract infection), bacterial Reason for Referral Specialty Diagnoses / Procedures Referred By Julia mccarty Referred To Contact Diagnoses Fibromyalgia Emeka Engel, PHOEBE [address] [place] [address] Referral ID Status Reason Start Date Expiration Date V isits Requested Visits Authorized [id number] Pending Review 1 1 Additional Source Comments INFORMATION SOURCE (unrecogn ized section and content) DATE CREATED AUTHOR 07/10/2018 [facility] DATE CREATED AUTHOR AUTHOR'S ORGANIZ ATION 10/17/2021 [facility] DATE CREATED AUTHOR AUTHOR'S ORGANIZ ATION 01/10/2022 [facility] Special[facility] DATE CREATED AUTHOR AUTHOR'S ORGANIZ ATION 06/16/2022 [facility] DATE CREATED AUTHOR AUTHOR'S ORGANIZ ATION 11/19/2022 [facility] DATE CREATED AUTHOR AUTHOR'S ORGANIZ ATION 12/24/2022 [facility] DATE CREATED AUTHOR AUTHOR'S ORGANIZ ATION 02/28/2023 [facility] DATE CREATED AUTHOR AUTHOR'S ORGANIZ ATION 06/18/2023 [facility] dical Specialists EPIC Care Team (unrecognized sect ion and content) Team Status: Active Member Role Status Dates Oren Henry DO Primary Care Provider Active Team Status: Inactive Member Role Status Dates Oren Henry DO Primary Care Provider Active Davin Hobbs MD Attending Provider Active Team Status: Inactive Member Role Status Dates Oren Henry DO Primary Care Provider Active Romain Rosen , Admit Provider Active Roni Blanton MD Attending Provider Active Darlin Young RN Other Provider Active uJan Rodrigues DO Other Provider Active Davin Hobbs MD Other Provider Active Alexys Mckeon MD Other Provider Active Felisha Elam MD Other Provider Active Joseph Serrano MD Other Provider Active Breann Ocampo APRN Other Provider Active Zakia Leone MD Other Provider Active Lyubov Decker MD Other Provider Active Riana Valenzuela MD Other Provider Active Marcia Valera , [facility] Other Provider Active Hattie Worthy MD Other Provider Active Team Status: Inactive Member Role Status Dates Oren Henry DO Primary Care Provider Active Latosha Ocampo MD Emergency Provider Active Team Status: Inactive Member Role Status Dates Oren Henry DO Primary Care Provider Active Juvencio Conroy APRN Attending Provider Active Economic Consultant Relationship Specialty Start Date End Date Oren Henry DO [address] [place] [address] PCP - [facility] 05/12/22 Oren Henry DO [address] [place] [address] PCP - General Internal Medicine 09/09/22 Goals (unrecognized section and content) Goals may be documented in a n alternate section Reason for Visit (unrecogniz ed section and content) Reason Onset Date Comments Med Refill 05/19/2023 FOR RECORDS PERTAINING TO PATIENTS WHO ARE OR HAVE BEEN ENROLLED IN A CHEMICAL DEPENDENCY/SUBSTANCEABUSE PROGRAM, SOME INFORMATION MAY BE OMITTED. This clinical summary was aggregated from multiple sources. Caution should be exercised in using it in the provision of clinical care. This summary normalizes information from multiple sources, and as a consequence, information in this document may materially change the coding, format and clinical context of patient data. In addition, data may be omitted in some cases. CLINICAL DECISIONS SHOULD BE BASED ON THE PRIMARY CLINICAL RECORDS. [employer] provides no warranty or guarantee of the accuracy or completeness of information in this document.
[2023-06-30 06:55] LABS: Basophils Percent Auto 0.5 % (0.2-2.0); Eosinophils Absolute Auto 0.1 10^3/uL (0.0-0.7); Eosinophils Percent Auto 2.1 % (0.9-7.0); Hematocrit 42.4 % (36.0-48.0); Hemoglobin 13.1 g/dL (12.0-16.0); Immature Granulocytes Abs Auto 0.02 10^3/uL (0.00-0.03); Immature Granulocytes Pct Auto 0.4 % (0.0-0.5); Lymphocytes Absolute Auto 1.7 10^3/uL (1.2-3.8); Lymphocytes Percent Auto 30.3 % (20.5-60.0); Mean Corpuscular HGB Conc 30.9 g/dL (29.9-35.2); Mean Corpuscular Hemoglobin 28.9 pg (26.7-34.0); Mean Corpuscular Volume 93.4 fL (81.0-99.0); Mean Platelet Volume 9.9 fL (9.5-13.5); Monocytes Absolute Auto 0.4 10^3/uL (0.3-0.8); Monocytes Percent Auto 6.9 % (1.7-12.0); Neutrophils Absolute Auto 3.4 10^3/uL (1.4-6.5); Neutrophils Percent Auto 59.8 % (43.0-75.0); Platelet Count 213 10^3/uL (150-450); Red Blood Count 4.54 10^6/uL (4.20-5.40); Red Cell Distribution Width 13.7 % (11.0-15.0); White Blood Count 5.7 10^3/uL (4.0-11.0)
[2023-06-30 06:56] LABS: Bilirubin Urine NEGATIVE (NEGATIVE); Blood Urine TRACE-I (NEGATIVE); Clarity Urine CLEAR (CLEAR); Color Urine YELLOW (YELLOW); Glucose Urine UA NEGATIVE (NEGATIVE); Ketones Urine NEGATIVE (NEGATIVE); Leukocyte Esterase Urine SMALL (NEGATIVE); Nitrite Urine POSITIVE (NEGATIVE); Protein Urine NEGATIVE (NEG/TRACE); Specific Gravity Urine >=1.030 (1.005-1.025); Urobilinogen Urine 0.2 EU/dL (0.2-1.0); pH Urine 5.5 (5.0-9.0)
[2023-06-30 07:13] LABS: Bacteria Urine LARGE #/HPF (NONE SEEN); Mucus Urine NONE SEEN (NONE SEEN); RBC Urine 0-2 #/HPF (0-2); Squamous Epithelial Cell Urine FEW #/LPF (NONE/RARE)
[2023-06-30 10:02] LABS: Alanine Aminotransferase 19 U/L (14-59); Albumin Level 3.3 g/dL (3.4-5.0); Alkaline Phosphatase 62 U/L (46-116); Anion Gap 12.6; Aspartate Amino Transferase 15 U/L (15-37); BUN Creatinine Ratio 25.2; Bilirubin Total 0.3 mg/dL (0.2-1.0); Calcium 9.1 mg/dL (8.5-10.1); Carbon Dioxide 29.7 mmol/L (21.0-32.0); Chloride 106 mmol/L (98-107); Chol HDL Ratio 2.9; Cholesterol 194 mg/dL (<=200); Estimated GFR (African America >60 (>=60); Estimated GFR (Non-African Ame 53 (>=60); Globulin 3.2 g/dL; Glucose 85 mg/dL (74-106); HDL Cholesterol 67 mg/dL (40-60); Potassium 4.3 mmol/L (3.5-5.1); Sodium 144 mmol/L (136-145); Total Protein 6.5 g/dL (6.4-8.2); Triglycerides 82 mg/dL (<=150); VLDL CHOLESTEROL 16.4 mg/dL
== END 2023-06-30 06:15 | disposition home or self-care (01) ==
LOC: LAB 06:16
PROVIDERS: PCP Internal Medicine
DX: N18.31 Chronic kidney disease, stage 3a (principal); R53.83 Other fatigue; I48.0 Paroxysmal atrial fibrillation; D51.8 Other vitamin B12 deficiency anemias; Z13.220 Encounter for screening for lipoid disorders
CPT/HCPCS: 36415; 80053; 80061; 81001; 82306; 82607; 82728; 83540; 83550; 85025

== ENCOUNTER 2024-01-19 14:50 | Outpatient (OUT) | payer MEDICARE, SELFPAY ==
[2024-01-19 15:27] LABS: Basophils Percent Auto 0.2 % (0.2-2.0); Eosinophils Absolute Auto 0.1 10^3/uL (0.0-0.7); Eosinophils Percent Auto 1.4 % (0.9-7.0); Hematocrit 39.5 % (36.0-48.0); Hemoglobin 12.6 g/dL (12.0-16.0); Immature Granulocytes Abs Auto 0.02 10^3/uL (0.00-0.03); Immature Granulocytes Pct Auto 0.2 % (0.0-0.5); Lymphocytes Absolute Auto 1.8 10^3/uL (1.2-3.8); Lymphocytes Percent Auto 22.5 % (20.5-60.0); Mean Corpuscular HGB Conc 31.9 g/dL (29.9-35.2); Mean Corpuscular Hemoglobin 29.1 pg (26.7-34.0); Mean Corpuscular Volume 91.2 fL (81.0-99.0); Mean Platelet Volume 9.8 fL (9.5-13.5); Monocytes Absolute Auto 0.9 10^3/uL (0.3-0.8); Monocytes Percent Auto 10.5 % (1.7-12.0); Neutrophils Absolute Auto 5.3 10^3/uL (1.4-6.5); Neutrophils Percent Auto 65.2 % (43.0-75.0); Platelet Count 222 10^3/uL (150-450); Red Blood Count 4.33 10^6/uL (4.20-5.40); Red Cell Distribution Width 13.6 % (11.0-15.0); White Blood Count 8.1 10^3/uL (4.0-11.0)
[2024-01-19 16:01] LABS: Anion Gap 13.7; BUN Creatinine Ratio 17.9; Calcium 9.5 mg/dL (8.5-10.1); Carbon Dioxide 26.3 mmol/L (21.0-32.0); Chloride 102 mmol/L (98-107); Estimated GFR (African America 47 (>=60 mL/min/1.73m^2); Estimated GFR (Non-African Ame 39 (>=60 mL/min/1.73m^2); Glucose 93 mg/dL (74-106); Sodium 137 mmol/L (136-145)
== END 2024-01-19 14:51 | disposition home or self-care (01) ==
LOC: LAB 14:53
PROVIDERS: PCP Internal Medicine; Visit Provider Internal Medicine Cardiovascular Disease
DX: I10 Essential (primary) hypertension (principal)
CPT/HCPCS: 36415; 80048; 85025

== ENCOUNTER 2024-03-06 15:23 | Emergency (ER) | payer OTHER, SELFPAY ==
[2024-03-06 15:28] VITALS: BP 142/102; PULSE 85; TEMP 36.7; O2SAT 99; BMI 34.9
--- NOTE | 2024-03-06 15:37 | PC.NURSE ---
lac to palm of left hand does not appear deep and non bleeding.
--- NOTE | 2024-03-06 15:59 | ED.WOUNDLAC1 ---
Documented by User: CASEY Barlow 03/06/24 16:14 HPI - Wound/Laceration General Chief Complaint: Skin/Abscess/Foreign Body Stated Complaint: laseration Time Seen by Provider: 03/06/24 15:34 Source: patient and friend Mode of arrival: walk-in Limitations: no limitations History of Present Illness HPI narrative: 68-year-old female who presents to the emergency department with friend with complaint of injury to her left hand. Patient states she was cutting up some cell overall work and excellently cut her hand. Complains of a wound. He has some mild tenderness. Denies any motor or sensory changes, paresthesias. Patient states last tetanus shot was 6 months ago. Patient is right-handed Quality:?Penetrating trauma Severity:?Mild Timing:?Injury occurred shortly prior to arrival, constant Context: Injury occurred while at work Modifying factors:?pain worse with palpation Associated symptoms: none Related Data Home Medications ?Medication ?Instructions ?Recorded ?Confirmed carvedilol 12.5 mg tablet 12.5 mg PO Q12H 10/15/22 10/15/22 ergocalciferol (vitamin D2) 1,250 50,000 unit PO .Tuesday10/15/22 10/15/22 mcg (50,000 unit) capsule losartan 100 mg tablet 100 mg PO QDAY 10/15/22 10/15/22 rivaroxaban 20 mg tablet (Xarelto) 20 mg PO Q24H 10/15/22 10/15/22 tramadol 50 mg tablet 50 mg PO Q12H PRN pain 10/15/22 10/15/22 vibegron 75 mg tablet (Gemtesa) 75 mg PO QDAY 10/15/22 10/15/22 Allergies Allergy/AdvReac Type Severity Reaction Status Date / Time acetaminophen (From Percocet) AdvReac Intermediate Verified 10/15/22 14:08 oxycodone (From Percocet) AdvReac Intermediate Verified 10/15/22 14:08 Review of Systems ROS Constitutional Denies: fatigue or malaise Musculoskeletal Reports: extremity pain; Denies: extremity swelling, joint pain or limited range of motion Integumentary/Breast Reports: skin pain, skin tenderness and other (wound) Neurological Denies: numbness in extremities or weakness in extremities Endocrine Denies: fatigue PFSH PFSH Social History Smoking status: Former smoker Little interest or pleasure in doing things: not at all Feeling down, depressed, or hopeless: not at all Exam Constitutional Vital Signs, click to edit/add: Last Vital Signs Temp 98.1 F 03/06/24 15:28 Pulse 85 03/06/24 15:28 Resp 16 03/06/24 15:28 BP 142/102 H 03/06/24 15:28 Pulse Ox 99 03/06/24 15:28 O2 Del Method Room Air 03/06/24 15:28 Common normals: no apparent distress, oriented x3 and alert General appearance: well developed HENMT Common normals: normocephalic and head/scalp atraumatic Head and scalp: normocephalic and atraumatic Cardio Peripheral pulses: radial pulses present left 2+ Extremity Other: MS: Left hand: Patient has very superficial, about 1.3 cm laceration, flap-like to the thenar eminence of the left hand. Range of motion full with flexion, extension, abduction, adduction, opposition of the thumb. There is some mild, associated tenderness. No swelling, ecchymosis, discoloration, crepitus, deformity, instability, warmth.? Strength 5/5 Neuro Common normals: oriented x3, no focal motor deficits and no sensory deficits noted Sensorium/orientation: alert Psych Common normals: mental status grossly normal, affect normal and speech normal Speech: normal speech Course Vital Signs Vital signs: Vital Signs Temperature 98.1 F 03/06/24 15:28 Pulse Rate 85 03/06/24 15:28 Respiratory Rate 16 03/06/24 15:28 Blood Pressure 142/102 H 03/06/24 15:28 Pulse Oximetry 99 03/06/24 15:28 Oxygen Delivery Method Room Air 03/06/24 15:28 Temperature 98.1 F 03/06/24 15:28 Pulse Rate 85 03/06/24 15:28 Respiratory Rate 16 03/06/24 15:28 Blood Pressure 142/102 H 03/06/24 15:28 Pulse Oximetry 99 03/06/24 15:28 Oxygen Delivery Method Room Air 03/06/24 15:28 MDM - Wound/Laceration MDM Narrative Medical decision making narrative: This is a pleasant 68-year-old female who presents to the emergency department with complaint of injury to her left hand. States she accidentally cut her hand with a knife she was using to cut food while at work shortly [employer]. On arrival, afebrile, VSS On exam, nontoxic, well-appearing patient in no apparent distress. There is a 1.3 cm laceration overlying the left thenar eminence since of her hand. Flap-like. Very superficial, only extending to the dermis. Range of motion full. Interval neurovascularly intact. Wound was thoroughly cleansed and repaired with Dermabond as noted in procedure note above. Tolerated well, no complications. Favor superficial laceration with Dermabond repair Foreign body, deep structure involvement less likely based on wound exploration Additional tests and interventions: Diagnostic testing considered but not performed: X-ray. Wound very superficial able to visualize entire depth in bloodless field Reevaluation: Wound repaired, patient is pain-free Disposition ? The patient was discharged. Plan: Patient will be discharged to home. Condition at time of disposition: stable Wound care instructions given both verbally and on discharge paperwork Advised to follow up with primary provider. Advised to return for any worsening and/or development of new, concerning signs or symptoms PLEASE NOTE: Portions of the medical record may have been produced using electronic corporate strategist and may contain errors with respect to translation of words which may not have been identified prior to finalization of the chart. Discharge Plan Discharge Chief Complaint: Skin/Abscess/Foreign Body Clinical Impression: Laceration of hand, left Qualifiers: Encounter type: initial encounter Foreign body presence: without foreign body Qualified Code(s): S61.412A - Laceration without foreign body of left hand, initial encounter Injury of hand, left Qualifiers: Encounter type: initial encounter Qualified Code(s): S69.92XA - Unspecified injury of left wrist, hand and finger(s), initial encounter Patient Disposition: Home, Self-Care Time of Disposition Decision: 16:06 Mode of Transportation: Private Vehicle Prescriptions / Home Meds: No Action carvedilol 12.5 mg tablet 12.5 mg PO Q12H ergocalciferol (vitamin D2) 1,250 mcg (50,000 unit) capsule 50,000 unit PO .TUESDAY losartan 100 mg tablet 100 mg PO QDAY Xarelto 20 mg tablet 20 mg PO Q24H tramadol 50 mg tablet 50 mg PO Q12H PRN (Reason: pain) Gemtesa 75 mg tablet 75 mg PO QDAY Print Language: Yemeni Instructions: Laceration (ED), Skin Adhesive Care (ED) Additional Instructions: Laceration, Sutures ? You have been treated for a laceration (cut). ? Follow up with your doctor OR come back here OR go to the nearest Emergency Department to have your sutures (stitches) taken out. Sutures should be taken out in: 7-10 days. ? Use the following wound care instructions: Keep the wound clean and dry for the next 24 hours. You can wash the wound gently with soap and water. DO NOT allow your wound to soak in water (don?t do the dishes or go swimming, for example). You can shower, but do not rub your stitches too hard. Let the wound dry before putting another bandage on. Take off old dressings every day. Then put on a clean, dry dressing. If the bandage sticks to the wound, slightly moisten it with water. This way, it can come off more easily. You can wash the wound gently with soap and water. To help remove a scab, cleanse the area with a mixture of half hydrogen peroxide and half water. This will also help us to take out the sutures later. Allow the area to dry completely before putting on a new bandage. Unless you receive instructions not to do so, you can place a thin layer of antibiotic ointment over the wound. You can buy Polysporin?, Bacitracin?, or Neosporin? at the store. Neosporin? can sometimes cause irritation to your skin. If this happens, stop using it and switch to another topical (surface) antibiotic. If needed, put a clean, dry bandage over the wound to protect it. ? Keep the affected area elevated (lifted) for the next 24 hours. This will decrease swelling and pain. You may also want to put ice on the area. By applying ice to the affected area, swelling and pain can be reduced. Place some ice cubes in a re-sealable (Ziploc?) bag and add some water. Put a thin washcloth between the bag and the skin. Apply the ice bag to the area for at least 20 minutes. Do this at least 4 times per day. It is OK to use the ice more frequently and for longer periods of time. DO NOT APPLY ICE DIRECTLY TO THE SKIN! ? If you had a local anesthetic, it will wear off in about 2 hours. Until then, be careful not to hurt yourself because of having less feeling in the area. ? YOU SHOULD SEEK MEDICAL ATTENTION IMMEDIATELY, EITHER HERE OR AT THE NEAREST EMERGENCY DEPARTMENT, IF ANY OF THE FOLLOWING OCCURS: You see redness or swelling. There are red streaks going up from the injured area. The wound smells bad or has a lot of drainage. You have fever (temperature higher than 100.4?F / 38?C), chills, worse pain and / or swelling. ? ?BE SURE TO: Call the Doctor today (or tomorrow AM) for appointment. Call us or return for any questions\problems. Return to Emergency at anytime if you are worse. Have your prescription(s) filled right now. WOUND CARE: Have your sutures removed in 7-10 days. Keep wound clean, dry, and covered. Use peroxide once a day to help remove build up. Vitamin A&D ointment or Vitamin E lotion after sutures are removed.? Massage in. Referrals: OREN KENDRICK [Primary Care Provider] - 1 week Discharge Date/Time: 03/06/24 16:25 Procedures ED Laceration Laceration Laceration 1: Site: hand (left flap like over thenar eminence) Side (if applicable): left Size (cm): 1.3 Description: flap Depth: simple, single layer Skin layer closed with: other (dermabond) Documented by User: Honorio Mcfarlane MD 03/06/24 18:10 HPI - Wound/Laceration General Chief Complaint: Skin/Abscess/Foreign Body Stated Complaint: laseration Time Seen by Provider: 03/06/24 15:34 Related Data Home Medications ?Medication ?Instructions ?Recorded ?Confirmed carvedilol 12.5 mg tablet 12.5 mg PO Q12H 10/15/22 10/15/22 ergocalciferol (vitamin D2) 1,250 50,000 unit PO .Tuesday10/15/22 10/15/22 mcg (50,000 unit) capsule losartan 100 mg tablet 100 mg PO QDAY 10/15/22 10/15/22 rivaroxaban 20 mg tablet (Xarelto) 20 mg PO Q24H 10/15/22 10/15/22 tramadol 50 mg tablet 50 mg PO Q12H PRN pain 10/15/22 10/15/22 vibegron 75 mg tablet (Gemtesa) 75 mg PO QDAY 10/15/22 10/15/22 Allergies Allergy/AdvReac Type Severity Reaction Status Date / Time acetaminophen (From Percocet) AdvReac Intermediate Verified 10/15/22 14:08 oxycodone (From Percocet) AdvReac Intermediate Verified 10/15/22 14:08 PFSH PFSH Social History Smoking status: Former smoker Little interest or pleasure in doing things: not at all Feeling down, depressed, or hopeless: not at all Exam Constitutional Vital Signs, click to edit/add: Last Vital Signs Temp 98.1 F 03/06/24 15:28 Pulse 85 03/06/24 15:28 Resp 16 03/06/24 15:28 BP 142/102 H 03/06/24 15:28 Pulse Ox 99 03/06/24 15:28 O2 Del Method Room Air 03/06/24 15:28 Course Vital Signs Vital signs: Vital Signs Temperature 98.1 F 03/06/24 15:28 Pulse Rate 85 03/06/24 15:28 Respiratory Rate 16 03/06/24 15:28 Blood Pressure 142/102 H 03/06/24 15:28 Pulse Oximetry 99 03/06/24 15:28 Oxygen Delivery Method Room Air 03/06/24 15:28 Temperature 98.1 F 03/06/24 15:28 Pulse Rate 85 03/06/24 15:28 Respiratory Rate 16 03/06/24 15:28 Blood Pressure 142/102 H 03/06/24 15:28 Pulse Oximetry 99 03/06/24 15:28 Oxygen Delivery Method Room Air 03/06/24 15:28 MDM - Wound/Laceration MDM Narrative Medical decision making narrative: This is a pleasant 68-year-old female who presents to the emergency department with complaint of injury to her left hand. States she accidentally cut her hand with a knife she was using to cut food while at work shortly [employer]. On arrival, afebrile, VSS On exam, nontoxic, well-appearing patient in no apparent distress. There is a 1.3 cm laceration overlying the left thenar eminence since of her hand. Flap-like. Very superficial, only extending to the dermis. Range of motion full. Interval neurovascularly intact. Wound was thoroughly cleansed and repaired with Dermabond as noted in procedure note above. Tolerated well, no complications. Favor superficial laceration with Dermabond repair Foreign body, deep structure involvement less likely based on wound exploration Additional tests and interventions: Diagnostic testing considered but not performed: X-ray. Wound very superficial able to visualize entire depth in bloodless field Reevaluation: Wound repaired, patient is pain-free Disposition ? The patient was discharged. Plan: Patient will be discharged to home. Condition at time of disposition: stable Wound care instructions given both verbally and on discharge paperwork Advised to follow up with primary provider. Advised to return for any worsening and/or development of new, concerning signs or symptoms PLEASE NOTE: Portions of the medical record may have been produced using electronic corporate strategist and may contain errors with respect to translation of words which may not have been identified prior to finalization of the chart. I, Dr Mcfarlane, have reviewed the above progress note and course of action in the ER; agree with the above. I have personally gone over history and physical, and discussed disposition and treatment plan with the patient. Discharge Plan Discharge Chief Complaint: Skin/Abscess/Foreign Body Clinical Impression: Laceration of hand, left Qualifiers: Encounter type: initial encounter Foreign body presence: without foreign body Qualified Code(s): S61.412A - Laceration without foreign body of left hand, initial encounter Injury of hand, left Qualifiers: Encounter type: initial encounter Qualified Code(s): S69.92XA - Unspecified injury of left wrist, hand and finger(s), initial encounter Patient Disposition: Home, Self-Care Time of Disposition Decision: 16:06 Mode of Transportation: Private Vehicle Prescriptions / Home Meds: No Action carvedilol 12.5 mg tablet 12.5 mg PO Q12H ergocalciferol (vitamin D2) 1,250 mcg (50,000 unit) capsule 50,000 unit PO .TUESDAY losartan 100 mg tablet 100 mg PO QDAY Xarelto 20 mg tablet 20 mg PO Q24H tramadol 50 mg tablet 50 mg PO Q12H PRN (Reason: pain) Gemtesa 75 mg tablet 75 mg PO QDAY Print Language: [place]i Instructions: Laceration (ED), Skin Adhesive Care (ED) Additional Instructions: Laceration, Sutures ? You have been treated for a laceration (cut). ? Follow up with your doctor OR come back here OR go to the nearest Emergency Department to have your sutures (stitches) taken out. Sutures should be taken out in: 7-10 days. ? Use the following wound care instructions: Keep the wound clean and dry for the next 24 hours. You can wash the wound gently with soap and water. DO NOT allow your wound to soak in water (don?t do the dishes or go swimming, for example). You can shower, but do not rub your stitches too hard. Let the wound dry before putting another bandage on. Take off old dressings every day. Then put on a clean, dry dressing. If the bandage sticks to the wound, slightly moisten it with water. This way, it can come off more easily. You can wash the wound gently with soap and water. To help remove a scab, cleanse the area with a mixture of half hydrogen peroxide and half water. This will also help us to take out the sutures later. Allow the area to dry completely before putting on a new bandage. Unless you receive instructions not to do so, you can place a thin layer of antibiotic ointment over the wound. You can buy Polysporin?, Bacitracin?, or Neosporin? at the store. Neosporin? can sometimes cause irritation to your skin. If this happens, stop using it and switch to another topical (surface) antibiotic. If needed, put a clean, dry bandage over the wound to protect it. ? Keep the affected area elevated (lifted) for the next 24 hours. This will decrease swelling and pain. You may also want to put ice on the area. By applying ice to the affected area, swelling and pain can be reduced. Place some ice cubes in a re-sealable (Ziploc?) bag and add some water. Put a thin washcloth between the bag and the skin. Apply the ice bag to the area for at least 20 minutes. Do this at least 4 times per day. It is OK to use the ice more frequently and for longer periods of time. DO NOT APPLY ICE DIRECTLY TO THE SKIN! ? If you had a local anesthetic, it will wear off in about 2 hours. Until then, be careful not to hurt yourself because of having less feeling in the area. ? YOU SHOULD SEEK MEDICAL ATTENTION IMMEDIATELY, EITHER HERE OR AT THE NEAREST EMERGENCY DEPARTMENT, IF ANY OF THE FOLLOWING OCCURS: You see redness or swelling. There are red streaks going up from the injured area. The wound smells bad or has a lot of drainage. You have fever (temperature higher than 100.4?F / 38?C), chills, worse pain and / or swelling. ? ?BE SURE TO: Call the Doctor today (or tomorrow AM) for appointment. Call us or return for any questions\problems. Return to Emergency at anytime if you are worse. Have your prescription(s) filled right now. WOUND CARE: Have your sutures removed in 7-10 days. Keep wound clean, dry, and covered. Use peroxide once a day to help remove build up. Vitamin A&D ointment or Vitamin E lotion after sutures are removed.? Massage in. Referrals: OREN KENDRICK [Primary Care Provider] - 1 week Discharge Date/Time: 03/06/24 16:25
== END 2024-03-06 16:25 | disposition home or self-care (01) ==
PROVIDERS: Emergency Provider Emergency Medicine; PCP Internal Medicine
DX: S61.412A Laceration without foreign body of left hand, initial encounter (principal); W26.0XXA Contact with knife, initial encounter
CPT/HCPCS: 12001; 99282